=== PATIENT | female | born 1960 | race Caucasian/White ===

== ENCOUNTER → 2018-02-01 11:04 | Outpatient (CLI) | payer OTHER, SELFPAY ==
--- NOTE | 2018-02-01 | DI.MG.S_ITS ---
BILATERAL DIGITAL SCREENING MAMMOGRAM 3D/2D WITH CAD: 02/01/2018 CLINICAL: Routine screening. Comparison is made to [facility]. There are scattered fibroglandular elements in both breasts. Current study was also evaluated with a Computer Aided Detection (CAD) system. No significant masses, calcifications, or other findings are seen in either breast. There has been no significant interval change. IMPRESSION: NEGATIVE There is no mammographic evidence of malignancy. A 1 year screening mammogram is recommended. This exam was interpreted at Station ID: [id number]. NOTE: For mammograms, a report in lay terms will be sent to the patient. Approximately 15% of breast malignancies will not be visualized mammographically. In the management of a palpable breast mass, a negative mammogram must not discourage biopsy of a clinically suspicious lesion. Electronically Signed By: Shanda harvey/cat:02/03/2018 13:57:47 letter sent: Normal Exam ACR BI-RADS Category 1: Negative [id number]
== END ==
PROVIDERS: PCP Family Medicine; Visit Provider Family Medicine
DX: Z12.31 Encounter for screening mammogram for malignant neoplasm of breast (principal)
CPT/HCPCS: 77063; 77067

== ENCOUNTER 2018-02-21 23:46 | Emergency (ER) | payer OTHER, SELFPAY ==
[2018-02-21 23:56] VITALS: BP 136/79; PULSE 86; RESP 18; TEMP 36.7; O2SAT 98; BMI 31.4
[2018-02-22 00:42] LABS: Bacteria Urine None Seen; RBC Urine None Seen (0-5/HPF)
--- NOTE | 2018-02-22 00:55 | ED_ITS ---
HPI - Female Genitourinary General Chief complaint: Urogenital-Female Stated complaint: hurts to urinate, smells bad Time Seen by Provider: 02/22/18 00:49 Source: patient Mode of arrival: ambulatory Limitations: no limitations History of Present Illness HPI Narrative: Patient is a 57-year-old female who presents with painful frequent urination. She says she has gone to the bathroom 4 times in an hour it just started an hour ago. She has noticed some blood. She denies any flank pain or abdominal pain nausea vomiting or fevers. She has never had a UTI in the past. She denies any vaginal discharge MD Complaint: dysuria Related Data Home Medications Medication Instructions Recorded Confirmed Citalopram Hydrobromide 10 mg PO Q DAY #0 02/03/10 (Citalopram HBr) Zolpidem Tartrate (Ambien) 10 mg PO PRN #0 02/03/10 CA PANTOTHENATE/FOLIC ACID/VIT 1 tab PO QDAY #0 12/05/12 (MULTIVITAMIN) Previous Rx's Medication Instructions Recorded clindamycin HCl 300 mg PO TID #30 cap 06/24/16 sulfamethoxazole-trimethoprim 1 tab PO BID 4 Days #8 tab 02/22/18 [Bactrim DS] Allergies Allergy/AdvReac Type Severity Reaction Status Date / Time No Known Allergies Allergy Uncoded 02/22/18 00:00 Review of Systems Review of Systems GENERAL: Denies chills, fatigue, malaise, fever, sweats, travel HEENT: Denies sinus pain, ear pain, sore throat, difficulty swallowing, neck pain RESPIRATORY: Denies dyspnea, cough, wheezing, hemoptysis, sputum. CARDIOVASCULAR: Denies chest pain, palpitations, orthopnea, edema GASTROINTESTINAL: Denies nausea, vomiting, abdominal pain, diarrhea, constipation, melena. : See HPI MUSCULOSKELETAL: Denies weakness, joint pain, or bony pain SKIN: No rash, no erythema, no pruritus NEUROLOGIC: Denies weakness, dizziness, headache, numbness, change in speech, confusion PSYCHIATRIC: No concerning psychosocial issues. 12 point review of systems is negative except for those stated above and HPI PFSH Medical History Anxiety (Acute) Surgical History Status post surgery (02/03/10) Status post surgery (12/02/12) Social History Smoking Status: Never smoker Exam Initial Vital Signs Initial Vital Signs: Vital Signs Temperature 98.1 F 02/21/18 23:56 Pulse Rate 86 02/21/18 23:56 Respiratory Rate 18 02/21/18 23:56 Blood Pressure 136/79 02/21/18 23:56 Pulse Oximetry 98 02/21/18 23:56 GENERAL: Well-appearing, well-nourished and in no acute distress. HEENT: Head atraumatic,EOMI, pupils reactive CARDIOVASCULAR: Regular rate and rhythm without murmurs, rubs or gallops. RESPIRATORY: Breath sounds equal bilaterally, no wheezes rales or rhonchi. ABDOMEN: Soft, nontender. Normoactive bowel sounds all 4 quadrants. No guarding or rebound : No CVA tenderness EXTREMITIES: Normal range of motion, no clubbing or edema. Neurovascularly intact NEUROLOGICAL: Alert and oriented x4.Normal gait and speech. SKIN: Warm, dry, no laceration, no petechiae, no rashes or lesions. Course Orders Ordered: ED Orders 02/22/18 00:40 Urine Microscopic Stat Discontinued Medications Phenazopyridine HCl (Pyridium 100mg Prepack) 1 bottle MISC SEEINSTR ONE Stop: 02/22/18 00:50 Last Admin: 02/22/18 01:01 Dose: 1 bottle Trimethoprim/Sulfamethoxazole (Bactrim Ds Prepack) 1 bottle MISC SEEINSTR ONE Stop: 02/22/18 00:50 Last Admin: 02/22/18 01:01 Dose: 1 bottle Vital Signs - 8 hr 02/21/18 23:56 Temperature 98.1 F Pulse Rate 86 Respiratory Rate 18 Blood Pressure 136/79 Pulse Oximetry 98 MDM - Female Genitourinary Lab Data Lab Results 02/22/18 Range/Units 00:40 Urine RBC None seen (0-5/HPF) Urine WBC 0-1/hpf (0-5/HPF) Urine Bacteria None seen (None) Ur Culture Indicated? Cult not indicated Micro UA Comment Not Reportable Urine Dip Bedside Urine Glucose Negative Bedside Urine Bilirubin - Negative Bedside Urine Ketone - Negative Urine Specific [place] 1.010 Bedside Urine Occult Blood + Bedside Urine pH 6.0 Bedside Urine Protein - Negative Bedside Urine Urobilinogen - Negative Bedside Urine Nitrite - Negative Bedside Urine Leukocytes - Negative Esterase MDM Narrative Medical decision making narrative: patient's only had signs and symptoms of UTI for 1 hr. Her POC does show blood in her urine. Will treat her for UTI. Discharge Plan Departure Patient Disposition: Home Clinical Impression: Urinary tract infection Discharge Date/Time: 02/22/18 01:06 Interventions: ED Discharge Assessment Last Done: 02/22/18 01:14 Instructions: DI for Urinary Tract Infection (UTI) Activity Restrictions/Additional Instructions: *You have been diagnosed with UTI *What to do: Urine and symptoms have only been going on for an hour. However will treat for infection *Continue to take medications as directed Pyrdidium 1 tablet 3 times a day only if needed for burning Bactrim 1 tablet twice a day for 5 days *Follow up with your primary care provider in 2-3 days *Return to ER if you should have fever, increasing pain, any new, worsening or concerning symptoms Prescriptions: New sulfamethoxazole-trimethoprim [Bactrim DS] 800-160 mg tablet 1 tab PO BID 4 Days Qty: 8 RF: 0 No Action Citalopram Hydrobromide (Citalopram HBr) 10 mg PO Q DAY Qty: 0 RF: 0 Zolpidem Tartrate (Ambien) 10 mg PO PRN Qty: 0 RF: 0 CA PANTOTHENATE/FOLIC ACID/VIT (MULTIVITAMIN) 1 tab PO QDAY Qty: 0 RF: 0 clindamycin HCl 300 MG capsule 300 mg PO TID Qty: 30 RF: 0 Referrals: Bernardo Granados MD [Primary Care Provider] -
[2018-02-22] MEDS: PHENAZOPYRIDINE 100 MG PREPACK 1 BOTTLE MISC (01:01)
[2018-02-22] MEDS: TRIMETH/SULFA 160/800 PREPACK 1 BOTTLE MISC (01:01)
[2018-02-22 01:03] LABS: WBC Urine 0-1/HPF (0-5/HPF)
[2018-02-22 01:04] LABS: Culture Indicated Urine Cult Not Indicated
== END 2018-02-22 01:06 | disposition home or self-care (01) ==
PROVIDERS: Emergency Provider Emergency Medicine; PCP Family Medicine
DX: N39.0 Urinary tract infection, site not specified (principal)
CPT/HCPCS: 81003; 81015; 99282; 99283

== ENCOUNTER → 2019-01-16 14:45 | Outpatient (CLI) | payer OTHER, SELFPAY ==
--- NOTE | 2019-01-16 | DI.RAD.S_ITS ---
PROCEDURE: XR SHOULDER RT MIN 2V INDICATIONS: RT SHOULDER DECREASE RANGE OF MOTION TECHNIQUE: 3 views of the shoulder were acquired. COMPARISON: None. FINDINGS: Bones: No fractures or dislocations. No suspicious bony lesions. Visualized ribs appear intact. Severe AC joint degeneration. Glenohumeral degenerative spurring also noted. Lateral downsloping appearance of the acromion. Soft tissues: No suspicious soft tissue calcifications. IMPRESSION: Right shoulder joint degeneration as above. If the patient's pain or other symptoms persist, consider further evaluation with MRI Dictated by: Josh Choe M.D. on 01/16/2019 at 15:59 Approved by: Josh Choe M.D. on 01/16/2019 at 16:00
== END ==
PROVIDERS: PCP Family Medicine; Visit Provider Family Medicine
DX: M25.511 Pain in right shoulder (principal); M19.011 Primary osteoarthritis, right shoulder
CPT/HCPCS: 73030

== ENCOUNTER → 2019-01-29 07:58 | Outpatient (CLI) | payer OTHER, SELFPAY ==
--- NOTE | 2019-01-29 | DI.MRI.S_ITS ---
PROCEDURE: MR SHOULDER RT WO CON INDICATIONS: Impingement syndrome of right shoulder TECHNIQUE: Noncontrast oblique coronal T2 fast spin echo with fat saturation, oblique sagittal T1 spin echo and T2 fast spin echo with fat saturation, axial T1 spin echo and T2 fast spin echo with fat saturation through the shoulder. COMPARISON: None. FINDINGS: Image quality: Excellent. Rotator cuff: Partial thickness articular and bursal sided tear at the junction of the supraspinatus and infraspinatus tendons with thinned appearance. No full-thickness defect is seen. There is Supraspinatus tendinopathy. Subscapularis tendinopathy and thickening with interstitial tearing and low-grade articular surface fraying. Teres minor appears intact. No atrophy of the rotator cuff musculature Bones and bursae: No bone marrow contusions or fractures. Severe hypertrophic acromioclavicular joint degeneration. Acromion demonstrates conventional anatomy, without an os acromiale. No definite subacromial-subdeltoid bursitis. Capsule and soft tissues: Posterior labral tear with a chronic appearance. Adjacent segmental glenoid rim sclerosis. No definite posterior subluxation of the humeral head relative to the glenoid. Superior labral tear also noted, age indeterminate and could be chronic. Glenohumeral joint degeneration. Long head of the biceps tendon intact. The rotator interval appears normal, without fibrosis. Coracohumeral ligament intact. IMPRESSION: Partial thickness articular and bursal sided tear at the junction of the supraspinatus and infraspinatus tendons. No full-thickness defect. Supraspinatus tendinopathy. Subscapular tendinopathy and thickening with low-grade articular surface fraying. Superior and posterior labral tear although chronic appearance and could be degenerative. Dictated by: Josh Choe M.D. on 01/29/2019 at 10:50 Approved by: Josh Choe M.D. on 01/29/2019 at 11:07
== END ==
PROVIDERS: Family Provider Family Medicine; PCP Family Medicine; Visit Provider Nurse Practitioner Family
DX: M75.41 Impingement syndrome of right shoulder (principal); M75.111 Incomplete rotator cuff tear or rupture of right shoulder, not specified as traumatic; S43.431A Superior glenoid labrum lesion of right shoulder, initial encounter
CPT/HCPCS: 73221

== ENCOUNTER 2019-11-19 14:09 | Emergency (ER) | payer OTHER, SELFPAY ==
[2019-11-19] VITALS (7 sets, daily range): BP systolic 130–161; BP diastolic 62–77; PULSE 64–74; RESP 13–18; TEMP 36.9; O2SAT 96–98; BMI 30.4
--- NOTE | 2019-11-19 14:22 | ED_ITS ---
HPI - Chest Pain <YAHIR Jamil - Last Filed: 11/19/19 20:31> General Chief Complaint: Chest Pain Stated Complaint: chest pain Time Seen by Provider: 11/19/19 14:11 Source: patient Mode of arrival: Ambulatory Limitations: no limitations History of Present Illness HPI narrative: 59yo female with no significant history, presents to the emergency department complaining of chest pain for the past day and half. She states the pain is a burning substernal pain that radiates in a band across her chest horizontally. Pain 1st started when she woke yesterday morning and she noticed some fatigue. 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 She has an occasional cough but denies any other symptoms such as shortness of breath, fevers, rhinorrhea, dizziness, nausea, vomiting, diarrhea, abdominal pain, syncope, dizziness, or any other concerns. She denies any known exposure with COVID-19. Patient denies any history of cardiac or respiratory etiology in the past. Related Data Home Medications Medication Instructions Recorded Confirmed Citalopram Hydrobromide 10 mg PO Q DAY #0 02/03/10 (Citalopram HBr) Zolpidem Tartrate (Ambien) 10 mg PO PRN #0 02/03/10 CA PANTOTHENATE/FOLIC ACID/VIT 1 tab PO QDAY #0 12/05/12 (MULTIVITAMIN) Previous Rx's Medication Instructions Recorded clindamycin HCl 300 mg PO TID #30 cap 06/24/16 Allergies Allergy/AdvReac Type Severity Reaction Status Date / Time No Known Allergies Allergy Uncoded 02/22/18 00:00 Review of Systems <YAHIR Jamil - Last Filed: 11/19/19 20:31> Review of Systems Narrative: REVIEW OF SYSTEMS: GENERAL: Denies fever or chills. HENT: No head trauma. EYES: No vision changes. CARDIOVASCULAR: Reports burning chest pain, see HPI. RESPIRATORY: No shortness of breath or cough. GASTROINTESTINAL: No nausea, vomiting, diarrhea, or constipation. GENITOURINARY: No flank pain or dysuria. MUSCULOSKELETAL: No pain. INTEGUMENTARY: No rash. NEURO: No numbness or tingling. PSYCH: No behavior or mood changes. Patient History <YAHIR Jamil - Last Filed: 11/19/19 20:31> Medical History Anxiety (Acute) Surgical History Status post surgery (02/03/10) Status post surgery (12/02/12) Social History Smoking Status: Never smoker Smoking Status: Never smoker alcohol intake frequency: 0-2 drinks per day Substance Use Type: does not use Exam <YAHIR Jamil - Last Filed: 11/19/19 20:31> Initial Vital Signs Initial Vital Signs: Vital Signs Temperature 98.5 F 11/19/19 14:10 Pulse Rate 74 11/19/19 14:10 Respiratory Rate 18 11/19/19 14:10 Blood Pressure 161/77 H 11/19/19 14:10 Pulse Oximetry 98 11/19/19 14:10 PHYSICAL EXAMINATION: GENERAL: Well groomed, alert, and cooperative. Answers questions promptly and appropriately. Vital signs noted. HENT: Normocephalic, atraumatic. Ear canals patent. Oral mucosa is pink and moist. EYES: Conjunctiva pink, sclera white, no periorbital swelling. CHEST: Normal to inspection and without deformities. CARDIOVASCULAR: S1 and S2 sounds normal. Regular rate and rhythm, no murmurs, clicks, or bruits. RESPIRATORY: Normal respiratory rate, trachea midline, airway patent. No stridor, nasal flaring or accessory muscle use. Lungs are clear in all boss without wheeze, rhonchi, or crackles. No cough observed. GASTROINTESTINAL: Bowel sounds normoactive. Abdomen is soft and non-tender. No organomegaly. MUSCULOSKELETAL: Normal gait and coordination. Equal tone and mass bilaterally. EXTREMITIES: CMS intact. Moves all extremities. SKIN: Warm, dry, soft, appropriate color for ethnicity. No lesions, rashes, or wounds. NEURO: Alert and Oriented X 3. Good coordination. No ataxia, or sensory deficits, or cognitive issues. PSYCH: Appropriate affect and mood. <Virginia Alejandra DO - Last Filed: 11/20/19 07:35> Initial Vital Signs Initial Vital Signs: Vital Signs Temperature 98.5 F 11/19/19 14:10 Pulse Rate 74 11/19/19 14:10 Respiratory Rate 18 11/19/19 14:10 Blood Pressure 161/77 H 11/19/19 14:10 Pulse Oximetry 98 11/19/19 14:10 Scores <Soraida Villafana DIGITAL COMMUNICATIONS MANAGER - Last Filed: 11/19/19 20:31> HEART Score Heart Score history: Slightly Suspicious Heart Score EKG: Normal Heart Score Age: 45-64 years old Heart Score risk factors: No known risk factors Heart Score troponin: < or = to normal limit Heart Score Total: 1 Course <Soraida Villafana DIGITAL COMMUNICATIONS MANAGER - Last Filed: 11/19/19 20:31> Course Course Narrative: Patient reports improved chest pain with Toradol and GI cocktail administration. Orders Ordered: Discontinued Medications Al Hydrox/Mg Hydrox/Simethicone 20 ml/ Lidocaine HCl 15 ml 0 ml PO NOW ONE Stop: 11/19/19 15:48 Last Admin: 11/19/19 15:59 Dose: 20 ml Documented by: JH Sodium Chloride (Normal Saline 0.9%) 1,000 mls @ 150 mls/hr IV CONT JOSH Last Infusion: 11/19/19 16:38 Dose: 0 mls/hr Documented by: Admin: 11/19/19 15:21 Dose: 500 mls/hr Documented by: JH Ketorolac Tromethamine (Toradol) 30 mg IV NOW ONE Stop: 11/19/19 15:48 Last Admin: 11/19/19 15:59 Dose: 30 mg Documented by: JH Reevaluation(s) Reevaluation #1: Patient staffed with Dr. Alejandra discussed test, test results, and plan of care. Vital Signs Vital signs: Vital Signs - 8 hr 11/19/19 14:10 11/19/19 14:15 11/19/19 14:30 Temperature 98.5 F Pulse Rate 74 73 73 Respiratory Rate 18 14 16 Blood Pressure 161/77 H 134/64 Pulse Oximetry 98 97 11/19/19 15:00 11/19/19 15:30 11/19/19 16:00 Temperature Pulse Rate 66 66 71 Respiratory Rate 13 14 18 Blood Pressure 130/63 134/62 134/70 Pulse Oximetry 97 97 98 11/19/19 16:30 Temperature Pulse Rate 64 Respiratory Rate 16 Blood Pressure 130/72 Pulse Oximetry 96 <Virginia Alejandra DO - Last Filed: 11/20/19 07:35> Orders Ordered: Discontinued Medications Al Hydrox/Mg Hydrox/Simethicone 20 ml/ Lidocaine HCl 15 ml 0 ml PO NOW ONE Stop: 11/19/19 15:48 Last Admin: 11/19/19 15:59 Dose: 20 ml Documented by: JH Sodium Chloride (Normal Saline 0.9%) 1,000 mls @ 150 mls/hr IV CONT JOSH Last Infusion: 11/19/19 16:38 Dose: 0 mls/hr Documented by: Admin: 11/19/19 15:21 Dose: 500 mls/hr Documented by: JH Ketorolac Tromethamine (Toradol) 30 mg IV NOW ONE Stop: 11/19/19 15:48 Last Admin: 11/19/19 15:59 Dose: 30 mg Documented by: JH Vital Signs Vital signs: Vital Signs - 8 hr 11/19/19 14:10 11/19/19 14:15 11/19/19 14:30 Temperature 98.5 F Pulse Rate 74 73 73 Respiratory Rate 18 14 16 Blood Pressure 161/77 H 134/64 Pulse Oximetry 98 97 11/19/19 15:00 11/19/19 15:30 11/19/19 16:00 Temperature Pulse Rate 66 66 71 Respiratory Rate 13 14 18 Blood Pressure 130/63 134/62 134/70 Pulse Oximetry 97 97 98 11/19/19 16:30 Temperature Pulse Rate 64 Respiratory Rate 16 Blood Pressure 130/72 Pulse Oximetry 96 MDM - Chest Pain <YAHIR Jamil - Last Filed: 11/19/19 20:31> Medical Records Data Attestation: I reviewed the patient's medical records. Lab Data Attestation: I reviewed the patient's lab results. Result diagrams: 11/19/19 14:27 11/19/19 14:27 Labs: Lab Results 11/19/19 11/19/19 Range/Units 14:27 14:27 WBC 5.7 (4.5-11.0) X10^3/uL RBC 4.18 (4.0-5.2) X10^6/uL Hgb 12.4 (12.0-16.0) g/dL Hct 35.9 L (36-46) % MCV 85.8 (80-100) fL MCH 29.6 (26-34) PG MCHC 34.5 (30-36) % RDW 13.2 (11.6-14.8) % Plt Count 217 (150-400) X10^3/uL Neut % (Auto) 35.5 L (50-75) % Lymph % (Auto) 57.3 H (25-40) % [place] % (Auto) 4.8 (3-14) % Eos % (Auto) 1.6 L (2-4) % Baso % (Auto) 0.8 (0-2) % Neut # (Auto) 2000 (7244-8854) /uL Lymph # (Auto) 3300 (5565-8093) /uL [place] # (Auto) 300 (0-900) /uL Eos # (Auto) 100 (0-450) /uL Baso # (Auto) 0 (0-100) /uL Sodium 138 (137-145) mmol/L Potassium 4.2 (3.4-5.1) mmol/L Chloride 105 (98-107) mmol/L Carbon Dioxide 31 (22-32) mmol/L BUN 17 (7-17) mg/dL Creatinine 0.85 (0.52-1.04) mg/dL Estimated GFR > 60.0 (>60) mL/min BUN/Creatinine Ratio 20.0 (6-22) Glucose 148 H (70-100) mg/dL Calcium 11.0 H (8.4-10.2) mg/dL Total Bilirubin 0.5 (0.2-1.3) mg/dL AST 34 (14-36) IU/L ALT 25 (<35) IU/L Alkaline Phosphatase 89 (38-126) U/L Total Creatine Kinase 69 (30-135) U/L CK-MB (CK-2) TNP CK-MB (CK-2) Rel Index TNP Troponin I < 0.012 (0.01-0.034) ng/mL Total Protein 8.1 (6.3-8.2) g/dL Albumin 4.0 (3.5-5.0) g/dL Globulin 4.1 (1.7-4.1) g/dL Albumin/Globulin Ratio 1.0 (1.0-2.8) Lipase 180 (23-300) U/L Imaging Data Chest x-ray: Radiologist's Impression: [address] [address] XRay Report Signed Patient: Mauricio Rdz FMR#: [id number] : 2Acct:[id number] Age/Sex: 59 / FDate of Service: 11/19/19 Loc: ED Accession Number: [id number] Procedure: XR chest 1V Ordering Provider: Soraida Villafana PROCEDURE: XR CHEST 1V INDICATIONS: chest pain TECHNIQUE: One view of the chest was acquired. COMPARISON: None. FINDINGS: Surgical changes and devices: None. Lungs and pleura: Lungs are clear. No pleural effusions or pneumothorax. Mediastinum: Mediastinal contours appear normal. Heart size is normal. Bones and chest wall: No suspicious bony lesions. Overlying soft tissues appear unremarkable. IMPRESSION: No acute cardiopulmonary disease process. Dictated by: Ghislaine Sellers MD, PhD on 11/19/2019 at 15:18 Approved by: Ghislaine Sellers MD, PhD on 11/19/2019 at 15:19 ECG Data Interpretation: 1415: Sinus rhythm. Rate 71, MT interval 106, QTC 441. No ST elevation or ST depression. No T-wave abnormality. No prior EKGs for comparison. EKG also viewed by Dr. Alejandra per protocol. MDM Narrative Medical decision making narrative: 59-year-old female presenting to the emergency department for burning chest pain. Differential for symptoms include GERD for viral etiology such as COVID-19. COVID test was sent to lab, patient was informed that she will receive results in 1-2 days. Encouraged to quarantine. Less likely cardiac in nature due to characteristics of pain, pain is not worse with activity or exertion, negative troponin, heart score of 1, low risk factors, and lack of other concerning symptoms such as associated shortness of breath. Chest x-ray without concern for pulmonary cardiac etiology as well. Improved symptoms after administration of medications. Patient was encouraged to take Pepcid as needed. She was encouraged to rest and drink plenty fluids. Return precautions given for new or worsening symptoms. Discussed follow-up symptoms with primary care provider in the next week. Patient agreed to plan of care verbalized understanding. <Virginia Alejandra, - Last Filed: 11/20/19 07:35> Lab Data Labs: Lab Results 11/19/19 11/19/19 Range/Units 14:27 14:27 WBC 5.7 (4.5-11.0) X10^3/uL RBC 4.18 (4.0-5.2) X10^6/uL Hgb 12.4 (12.0-16.0) g/dL Hct 35.9 L (36-46) % MCV 85.8 (80-100) fL MCH 29.6 (26-34) PG MCHC 34.5 (30-36) % RDW 13.2 (11.6-14.8) % Plt Count 217 (150-400) X10^3/uL Neut % (Auto) 35.5 L (50-75) % Lymph % (Auto) 57.3 H (25-40) % [place] % (Auto) 4.8 (3-14) % Eos % (Auto) 1.6 L (2-4) % Baso % (Auto) 0.8 (0-2) % Neut # (Auto) 2000 (6444-6970) /uL Lymph # (Auto) 3300 (6132-1724) /uL [place] # (Auto) 300 (0-900) /uL Eos # (Auto) 100 (0-450) /uL Baso # (Auto) 0 (0-100) /uL Sodium 138 (137-145) mmol/L Potassium 4.2 (3.4-5.1) mmol/L Chloride 105 (98-107) mmol/L Carbon Dioxide 31 (22-32) mmol/L BUN 17 (7-17) mg/dL Creatinine 0.85 (0.52-1.04) mg/dL Estimated GFR > 60.0 (>60) mL/min BUN/Creatinine Ratio 20.0 (6-22) Glucose 148 H (70-100) mg/dL Calcium 11.0 H (8.4-10.2) mg/dL Total Bilirubin 0.5 (0.2-1.3) mg/dL AST 34 (14-36) IU/L ALT 25 (<35) IU/L Alkaline Phosphatase 89 (38-126) U/L Total Creatine Kinase 69 (30-135) U/L CK-MB (CK-2) TNP CK-MB (CK-2) Rel Index TNP Troponin I < 0.012 (0.01-0.034) ng/mL Total Protein 8.1 (6.3-8.2) g/dL Albumin 4.0 (3.5-5.0) g/dL Globulin 4.1 (1.7-4.1) g/dL Albumin/Globulin Ratio 1.0 (1.0-2.8) Lipase 180 (23-300) U/L ECG Data Attestation: I personally reviewed and interpreted this ECG as follows: Prior ECG tracings: not available for review Interpretation: Normal sinus rhythm rate 71 p.r. interval 106 QRS 86, QTC 441 no short p.r. interval no p.r. depression, slight ST depression in inferior leads but less than 0.5 mm Discharge Plan Departure Patient Disposition: Home Clinical Impression: Atypical chest pain Discharge Date/Time: 11/19/19 16:39 Instructions: DI for Atypical Chest Pain Activity Restrictions/Additional Instructions: Thank you for entrusting me with your care today. As discussed, your chest x- ray, laboratory work, and EKG are non-remarkable. 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 This test may take 2-5 days for results to return, we will call you with these results. Please remain in quarantine with self isolation at home for 3 days after your s ymptoms have completely resolved. Drink lots of fluids, take Tylenol for fever, get extra rest, clean all surfaces, cover your cough, wash your hands frequently, and avoid sharing any personal items. If you need to seek medical care, please call the clinic or the emergency department before your arrival. It is possible that acid reflux may be contributing to this as well, I suggest taking Pepcid daily for the next week to see if this relieves symptoms. Please return to the emergency department for any new or worsening symptoms such as worsening chest pain, syncope, shortness of breath, dizziness, or any other concerns. Make an appointment with your provider in the next 1-2 weeks for further evaluation and testing if indicated. Prescriptions: No Action Citalopram Hydrobromide (Citalopram HBr) 10 mg PO Q DAY Qty: 0 RF: 0 Zolpidem Tartrate (Ambien) 10 mg PO PRN Qty: 0 RF: 0 CA PANTOTHENATE/FOLIC ACID/VIT (MULTIVITAMIN) 1 tab PO QDAY Qty: 0 RF: 0 clindamycin HCl 300 MG capsule 300 mg PO TID Qty: 30 RF: 0 Referrals: Bernardo Granados MD [Primary Care Provider] - <Virginia Alejandra DO - Last Filed: 11/20/19 07:35> Cosign ED Attending Cosignature Attestation: I was immediately available in the depar tment for consultation. Documentation has been reviewed. I agree with assessment and plan.
--- NOTE | 2019-11-19 14:48 | DI.RAD.S_ITS ---
PROCEDURE: XR CHEST 1V INDICATIONS: chest pain TECHNIQUE: One view of the chest was acquired. COMPARISON: None. FINDINGS: Surgical changes and devices: None. Lungs and pleura: Lungs are clear. No pleural effusions or pneumothorax. Mediastinum: Mediastinal contours appear normal. Heart size is normal. Bones and chest wall: No suspicious bony lesions. Overlying soft tissues appear unremarkable. IMPRESSION: No acute cardiopulmonary disease process. Dictated by: Ghislaine Sellers MD, PhD on 11/19/2019 at 15:18 Approved by: Ghislaine Sellers MD, PhD on 11/19/2019 at 15:19
[2019-11-19 15:03] LABS: Add Manual Diff / Slide Review NO; Basophils Absolute Auto 0 /uL (0-100); Basophils Percent Auto 0.8 % (0-2); Eosinophils Absolute Auto 100 /uL (0-450); Eosinophils Percent Auto 1.6 % (2-4); Hematocrit 35.9 % (36-46); Hemoglobin 12.4 g/dL (12.0-16.0); Lymphocytes Absolute Auto 3300 /uL (1100-4500); Lymphocytes Percent Auto 57.3 % (25-40); Mean Corpuscular HGB Conc 34.5 % (30-36); Mean Corpuscular Hemoglobin 29.6 PG (26-34); Mean Corpuscular Volume 85.8 fL (80-100); Monocytes Absolute Auto 300 /uL (0-900); Monocytes Percent Auto 4.8 % (3-14); Neutrophils Absolute Auto 2000 /uL (1500-7000); Neutrophils Percent Auto 35.5 % (50-75); Platelet Count 217 X10^3/uL (150-400); Red Blood Cell Count 4.18 X10^6/uL (4.0-5.2); Red Cell Distribution Width 13.2 % (11.6-14.8); White Blood Cell Count 5.7 X10^3/uL (4.5-11.0)
[2019-11-19 15:08] LABS: Alanine Aminotransferase 25 IU/L (<35); Alkaline Phosphatase 89 U/L (38-126); Aspartate Aminotransferase 34 IU/L (14-36); Bilirubin Total 0.5 mg/dL (0.2-1.3); Blood Urea Nitrogen 17 mg/dL (7-17); Carbon Dioxide 31 mmol/L (22-32); Chloride 105 mmol/L (98-107); Creatine Kinase 69 U/L (30-135); Estimated Glomerular Filt Rate > 60.0 mL/min (>60); Globulin 4.1 g/dL (1.7-4.1); Glucose 148 mg/dL (70-100); HEMOLYSIS 30 (0-50); Lipase 180 U/L (23-300); Potassium 4.2 mmol/L (3.4-5.1); Sodium 138 mmol/L (137-145); Total Protein 8.1 g/dL (6.3-8.2)
[2019-11-19 15:20] LABS: Troponin I < 0.012 ng/mL (0.01-0.034)
[2019-11-19] MEDS: SODIUM CHLORIDE 0.9% 1,000 ML 500 ML IV (15:21)
[2019-11-19] MEDS: KETOROLAC 60 MG/2 ML VIAL 30 MG IV (15:59)
[2019-11-19] MEDS: MAG HYDROX/ALUMINUM/SIMETH SUS 20 ML, LIDOCAINE VISCOUS 2% 15 ML PO (15:59)
[2019-11-21 15:36] LABS: COVID19 Sendout Not Detected (Not Detected)
== END 2019-11-19 16:39 | disposition home or self-care (01) ==
PROVIDERS: Emergency Provider Nurse Practitioner; Family Provider Family Medicine; PCP Family Medicine
DX: R07.89 Other chest pain (principal); Z03.818 Encounter for observation for suspected exposure to other biological agents ruled out
CPT/HCPCS: 71045; 80053; 82550; 83690; 84484; 85025; 87635; 93005; 96361; 96374; 99284; J1885

== ENCOUNTER → 2020-01-16 07:52 | Outpatient (CLI) | payer OTHER, SELFPAY ==
--- NOTE | 2020-01-16 | DI.MG.S_ITS ---
BILATERAL DIGITAL SCREENING MAMMOGRAM 3D/2D WITH CAD: 01/16/2020 CLINICAL: Routine screening. Comparison is made to exams dated: 02/01/2018 mammogram and 06/27/2009 mammogram - [facility]. There are scattered fibroglandular elements in both breasts. Current study was also evaluated with a Computer Aided Detection (CAD) system. No significant masses, calcifications, or other findings are seen in either breast. There has been no significant interval change. IMPRESSION: NEGATIVE There is no mammographic evidence of malignancy. A 1 year screening mammogram is recommended. This exam was interpreted at Station ID: [id number]. NOTE: For mammograms, a report in lay terms will be sent to the patient. Approximately 15% of breast malignancies will not be visualized mammographically. In the management of a palpable breast mass, a negative mammogram must not discourage biopsy of a clinically suspicious lesion. Electronically Signed By: Addi howard/cat:01/18/2020 07:28:25 letter sent: Normal Exam ACR BI-RADS Category 1: Negative [id number]
== END ==
PROVIDERS: Family Provider Family Medicine; PCP Family Medicine; Referring Provider Family Medicine; Visit Provider Family Medicine
DX: Z12.31 Encounter for screening mammogram for malignant neoplasm of breast (principal)
CPT/HCPCS: 77063; 77067

== ENCOUNTER → 2020-06-22 16:14 | Outpatient (CLI) | payer OTHER, SELFPAY ==
[2020-06-22] MEDS: COVID-19 VACC, Ad26(JANSSEN)/PF 0.5 ML IM (16:28)
== END ==
PROVIDERS: Visit Provider Internal Medicine
DX: Z23 Encounter for immunization (principal)
CPT/HCPCS: 0031A; 91303

== ENCOUNTER 2020-09-16 14:56 | Emergency (ER) | payer OTHER, SELFPAY ==
[2020-09-16 15:03] VITALS: BP 177/82; PULSE 72; RESP 18; TEMP 36.8; O2SAT 97
--- NOTE | 2020-09-16 15:16 | ED.GENADULT ---
HPI - General Adult General Chief complaint: Extremity Injury, Upper Stated complaint: FELL RIGHT ARM LEG INJURY Time Seen by Provider: 09/16/20 15:11 Source: patient Mode of arrival: Wheelchair Limitations: no limitations History of Present Illness HPI narrative: 59-year-old otherwise healthy woman was walking down the street, turn to talk to somebody and as she turned back around her right arm hit a cement post then she stumbled and fell landing on both needs and abrading her left thenar eminence. There is no loss of consciousness. She was able to get up again. Her right arm where it hit the post is very tender to the touch in the distal forearm. She has a large and continuing to expand hematoma on the ventral surface of the forearm. She is not on blood thinners Related Data Home Medications Medication Instructions Recorded Confirmed Citalopram Hydrobromide 10 mg PO Q DAY #0 02/03/10 (Citalopram HBr) Zolpidem Tartrate (Ambien) 10 mg PO PRN #0 02/03/10 CA PANTOTHENATE/FOLIC ACID/VIT 1 tab PO QDAY #0 12/05/12 (MULTIVITAMIN) Previous Rx's Medication Instructions Recorded clindamycin HCl 300 mg PO TID #30 cap 06/24/16 hydrocodone-acetaminophen 1 tab PO Q6H PRN #14 tab 09/16/20 Allergies Allergy/AdvReac Type Severity Reaction Status Date / Time No Known Drug Allergies Allergy Verified 09/16/20 15:03 Review of Systems Review of Systems Narrative: Pertinent positive and negative findings as per HPI Remainder of review of systems is otherwise unremarkable for Constitutional: Fevers, chills, weakness ENT: No sore throat, neck pain, ear pain CV: Chest pain, palpitations, Respiratory: Cough, wheeze, dyspnea GI: Nausea, vomiting, diarrhea, : Dysuria, hematuria, Patient History Medical History Anxiety Surgical History Status post surgery (02/03/10) Status post surgery (12/02/12) Social History Smoking Status: Never smoker Smoking Status: Never smoker alcohol intake frequency: other Substance Use Type: does not use Exam Narrative Exam Narrative: General: Alert appropriate in no acute distress Respiratory: Able to speak in full sentences, no obvious respiratory distress Skin: No obvious rashes, warm and dry Neurologic: Grossly intact no obvious asymmetries or abnormalities Psych: appropriate insight and affect, cooperative Extremities: Small abrasion to palmar surface of the left hand and both knees. She has a 5 x 8 cm developing hematoma over the right forearm with a mild abrasion only over that. She is completely neurovascularly intact distally. Initial Vital Signs Initial Vital Signs: Vital Signs Temperature 98.3 F 09/16/20 15:03 Pulse Rate 72 09/16/20 15:03 Respiratory Rate 18 09/16/20 15:03 Blood Pressure 177/82 H 09/16/20 15:03 Pulse Oximetry 97 09/16/20 15:03 Procedures Orthopedic Splinting/Casting Right forearm: Side: right Upper Extremity Injury Location: forearm Upper Extremity Immobilizer: Chris wrap Post splinting neuro exam: intact Post splinting vascular exam: intact Placed by: Provider Course Orders Ordered: ED Orders 09/16/20 15:17 XR wrist RT min 3V Stat Discontinued Medications Acetaminophen (Acetaminophen 325 Mg Tablet) 325 mg PO NOW ONE Stop: 09/16/20 15:31 Last Admin: 09/16/20 15:43 Dose: 325 mg Documented by: Bacitracin (Bacitracin Oint 0.9 Gm Pckt) 5 applic TOP NOW ONE Stop: 09/16/20 15:31 Last Admin: 09/16/20 15:43 Dose: 5 applic Documented by: Ibuprofen (Ibuprofen 400 Mg Tablet) 400 mg PO NOW ONE Stop: 09/16/20 15:31 Last Admin: 09/16/20 15:42 Dose: 400 mg Documented by: Oxycodone HCl (Oxycodone Ir 5 Mg Tablet) 5 mg PO NOW ONE Stop: 09/16/20 16:14 Vital Signs Vital signs: Vital Signs - 8 hr 09/16/20 15:03 Temperature 98.3 F Pulse Rate 72 Respiratory Rate 18 Blood Pressure 177/82 H Pulse Oximetry 97 Medical Decision Making Imaging Data X-ray wrist: Radiologist's Impression: FINDINGS: Bones: No fractures or dislocations. No suspicious bony lesions. Scaphoid view: Scaphoid is intact. Soft tissues: No suspicious soft tissue calcifications. Dorsal distal forearm soft tissue swelling. IMPRESSION: No fracture. No osseous lesion. If symptoms and/or clinical suspicion for pathology persists, further assessment with repeat radiographs (7-10 days) or advanced imaging (e.g. CT, MRI or bone scan) should be considered. Dictated by: Ghislaine Sellers MD, PhD on 09/16/2020 at 15:45 MDM Narrative Medical decision making narrative: 59-year-old woman with minor abrasions to the left hand and both knees. The a hematoma on her right forearm is quite large and quite tender. There is no underlying bony injury. An Chris wrap was applied to help control the bleeding and for compression support and pain control as well. At this point she does not have compartment syndrome however that much swelling in her forearm could conceivably put her at risk in we did go over signs and symptoms of developing compartment syndrome. At this point she is safe for home discharge Discharge Plan Departure Patient Disposition: Home Clinical Impression: Hematoma and contusion, Abrasion Instructions: Acute Compartment Syndrome, DI for Hematoma (Bruise) Activity Restrictions/Additional Instructions: Thank you for coming in today You did not break your wrist that you do have an impressive hematoma in your forearm. This is going to hurt more tomorrow. I have placed an Chris wrap fairly tightly to try and stop any further bleeding right now. I suspect that you either broke a tiny little arteriole or a medium-sized vein. Please make sure that it sometime in the next couple of hours he really wrap that arm so that the dressing is in quite so tight. Using 400 mg of ibuprofen (2 [id number] pills) and 1 Tylenol every 6 hours can be very helpful in controlling pain. You can also 400 mg of ibuprofen and 1 Vicodin for severe pain I have given you instructions for compartment syndrome. I do not think that you have this currently however this type of injury does put you at risk. If you get to the point where your pain is well beyond what you would expect to be and cannot be further controlled with medications, please return to the ER I hope you heal quickly Prescriptions: New hydrocodone-acetaminophen 5-325 mg tablet 1 tab PO Q6H PRN (Reason: pain) Qty: 14 RF: 0 No Action Citalopram Hydrobromide (Citalopram HBr) 10 mg PO Q DAY Qty: 0 RF: 0 Zolpidem Tartrate (Ambien) 10 mg PO PRN Qty: 0 RF: 0 CA PANTOTHENATE/FOLIC ACID/VIT (MULTIVITAMIN) 1 tab PO QDAY Qty: 0 RF: 0 clindamycin HCl 300 MG capsule 300 mg PO TID Qty: 30 RF: 0 Referrals: Huyen Harden MD [Primary Care Provider] -
--- NOTE | 2020-09-16 15:17 | DI.RAD.S_ITS ---
PROCEDURE: XR WRIST RT MIN 3V INDICATIONS: injury TECHNIQUE: 4 views of the wrist were acquired. COMPARISON: None. FINDINGS: Bones: No fractures or dislocations. No suspicious bony lesions. Scaphoid view: Scaphoid is intact. Soft tissues: No suspicious soft tissue calcifications. Dorsal distal forearm soft tissue swelling. IMPRESSION: No fracture. No osseous lesion. If symptoms and/or clinical suspicion for pathology persists, further assessment with repeat radiographs (7-10 days) or advanced imaging (e.g. CT, MRI or bone scan) should be considered. Dictated by: Ghislaine Sellers MD, PhD on 09/16/2020 at 15:45 Approved by: Ghislaine Sellers MD, PhD on 09/16/2020 at 15:49
[2020-09-16] MEDS: IBUPROFEN 400 MG TABLET PO (15:42)
[2020-09-16] MEDS: BACITRACIN OINT 0.9 GM PCKT 5 APPLIC TOP (15:43)
[2020-09-16] MEDS: ACETAMINOPHEN 325 MG TABLET PO (15:43)
[2020-09-16] MEDS: OXYCODONE IR 5 MG TABLET PO (16:29)
[2020-09-16 16:30] VITALS: BP 148/76; PULSE 77; RESP 18; O2SAT 99
== END 2020-09-16 16:31 | disposition home or self-care (01) ==
PROVIDERS: Emergency Provider Emergency Medicine; PCP Student in an Organized Health Care Education/Training Program
DX: S50.11XA Contusion of right forearm, initial encounter (principal); S60.512A Abrasion of left hand, initial encounter; S80.212A Abrasion, left knee, initial encounter; S80.211A Abrasion, right knee, initial encounter; W22.01XA Walked into wall, initial encounter
CPT/HCPCS: 73110; 99283

== ENCOUNTER → 2021-09-03 10:45 | Outpatient (CLI) | payer OTHER, SELFPAY ==
[2021-09-03 12:52] LABS: Influenza A - CEPHEID Flu A NEGATIVE (NEGATIVE); Influenza B - CEPHEID Flu B NEGATIVE (NEGATIVE)
[2021-09-03 12:57] LABS: COVID-19 CEPHEID PCR (VTM/NP) Negative (Negative)
== END ==
PROVIDERS: PCP Student in an Organized Health Care Education/Training Program; Visit Provider Physician Assistant
DX: R05.9 Cough, unspecified (principal); J02.9 Acute pharyngitis, unspecified
CPT/HCPCS: 0240U; 87070

== ENCOUNTER 2021-09-16 10:44 | Emergency (ER) | payer OTHER, SELFPAY ==
--- NOTE | 2021-09-16 10:57 | DI.RAD.S_ITS ---
PROCEDURE: XR CHEST 2V INDICATIONS: sob TECHNIQUE: 2 views of the chest were acquired. COMPARISON: [facility], , XR CHEST 1V, 11/19/2019, 15:07. FINDINGS: Surgical changes and devices: None. Lungs and pleura: Lungs are clear. No pleural effusions or pneumothorax. Mediastinum: Mediastinal contours are normal. Heart size is normal. Bones and chest wall: Degenerative changes of the shoulders and spine without acute osseous abnormality. No suspicious bony abnormalities. Soft tissues appear unremarkable. IMPRESSION: No evidence of an acute cardiopulmonary abnormality. Dictated by: Live Moreira D.O. on 09/16/2021 at 10:29 Approved by: Live Moreira D.O. on 09/16/2021 at 10:30
[2021-09-16 10:58] VITALS: BP 147/101; PULSE 99; RESP 20; TEMP 35.7; O2SAT 96; BMI 29.5
--- NOTE | 2021-09-16 11:17 | ED.GENADULT ---
HPI - General Adult General Chief complaint: Shortness of Breath/Dyspnea Stated complaint: Trouble breathing x 2 weeks Time Seen by Provider: 09/16/21 10:59 Source: patient and family Mode of arrival: Family Vehicle Limitations: no limitations History of Present Illness HPI narrative: Patient is a 60-year-old female. No other underlying lung issues he is here for evaluation of 2 weeks of coughing and problems breathing. She states that she now has shortness of breath when she gets up and moves around. No fevers. No sinus congestion. Does have a sore throat. No chest pain. She was diagnosed with COVID in April. Her symptoms completely resolved. Two weeks ago started to have symptoms again. She was seen in the walk-in clinic. Had a negative COVID test. Was seen by her primary doctor. Was told that she had ?long COVID ?is not currently on any medications. She had a negative COVID test at her primary doctor. No abdominal pain. Fevers. Related Data Home Medications Medication Instructions Recorded Confirmed Citalopram Hydrobromide 10 mg PO Q DAY #0 02/03/10 09/03/21 (Citalopram HBr) Zolpidem Tartrate (Ambien) 10 mg PO PRN #0 02/03/10 09/03/21 CA PANTOTHENATE/FOLIC ACID/VIT 1 tab PO QDAY #0 12/05/12 09/03/21 (MULTIVITAMIN) Previous Rx's Medication Instructions Recorded clindamycin HCl 300 mg capsule 300 mg PO TID #30 cap 06/24/16 hydrocodone 5 mg-acetaminophen 325 1 tab PO Q6H PRN #14 tab 09/16/20 mg tablet albuterol sulfate 90 mcg/actuation 2 puff INHALATION Q4-6H PRN #8.5 g 09/16/21 aerosol inhaler Allergies Allergy/AdvReac Type Severity Reaction Status Date / Time No Known Drug Allergies Allergy Verified 09/16/20 15:03 Review of Systems Constitutional Constitutional: Reports system reviewed and no additional complaints, except as documented ENT Ears, Nose, Mouth, and Throat: Reports system reviewed and no additional complaints, except as documented Cardiovascular Cardiovascular: Reports system reviewed and no additional complaints, except as documented Respiratory Respiratory: Reports system reviewed and no additional complaints, except as documented Gastrointestinal Gastrointestinal: Reports system reviewed and no additional complaints, except as documented Integumentary/Breasts Skin/Breast: Reports system reviewed and no additional complaints, except as documented Hematologic/Lymphatic On Anticoagulants: No Patient History Medical History (Updated 09/16/21 @ 13:18 by Bernardo King DO) Anxiety Surgical History Status post surgery (02/03/10) Status post surgery (12/02/12) Social History Smoking Status: Never smoker Smoking Status: Never smoker alcohol intake frequency: other Substance Use Type: does not use Exam Initial Vital Signs Initial Vital Signs: Vital Signs Temperature 96.2 F L 09/16/21 10:58 Pulse Rate 99 H 09/16/21 10:58 Respiratory Rate 20 09/16/21 10:58 Blood Pressure 147/101 H 09/16/21 10:58 Pulse Oximetry 96 09/16/21 10:58 Const General: cooperative, healthy appearing and comfortable HENMT Head: normal to inspection and normocephalic Mouth: oral mucosae normal and moist mucous membranes Throat: posterior oropharynx normal Resp Effort & Inspection: normal respiratory effort Auscultation: clear to auscultation bilaterally Cardio Rate: regular rate Rhythm: regular rhythm GI Inspection: normal to inspection Neuro General: patient alert, patient awake and moves all extremities Extrem General: normal to inspection and capillary refill normal Psych Appearance: grossly normal and well kempt Course Orders Ordered: ED Orders 09/16/21 10:57 Chest [XR chest 2V] Stat 09/16/21 11:00 COVID19 -Nasal RAPID/Pre-Proc Stat 09/16/21 11:57 Respiratory Panel (Film Array) Stat Vital Signs Vital signs: Vital Signs - 8 hr 09/16/21 10:58 09/16/21 13:25 Temperature 96.2 F L Pulse Rate 99 H 98 H Respiratory Rate 20 19 Blood Pressure 147/101 H 159/80 H Pulse Oximetry 96 98 Medical Decision Making Lab Data Labs: Lab Results 09/16/21 09/16/21 Range/Units 11:00 11:57 Chlamy pneumoniae PCR Not detected (Not Detect) Adenovirus (PCR) Not detected (Not Detect) B. pertussis DNA (PCR) Not detected (Not Detecte) B.parapertussis DNA PCR Not detected (Not Detecte) Coronavirus OC43 (PCR) Not detected (Not Detect) Coronavirus HKU1 (PCR) Not detected (Not Detect) Coronavirus 229E (PCR) Not detected (Not Detect) SARS-CoV-2 (PCR) Negative Not detected (Negative) Coronavirus NL63 (PCR) Not detected (Not Detect) Human Metapneumovir PCR Not detected (Not Detect) Influenza Type A (PCR) Not detected (Not Detect) Influenza Type B (PCR) Not detected (Not Detect) M. pneumoniae (PCR) Not detected (Not Detect) Parainfluenza 1 (PCR) Not detected (Not Detect) Parainfluenza 2 (PCR) Not detected (Not Detect) Parainfluenza 3 (PCR) Detected H (Not Detect) Parainfluenza 4 (PCR) Not detected (Not Detect) RSV (PCR) Not detected (Not Detect) Entero/Rhino (PCR) Not detected (Not Detect) Imaging Data Chest x-ray: Radiologist's Impression: [address] [id number] XRay Report Signed Patient: Mauricio Rdz MR#: [id number] : 1960 Acct:[id number] Age/Sex: 60 / F Date of Service: 09/16/21 Loc: Accession Number: [id number] ?? Procedure: XR chest 2V Ordering Provider: Bernardo King D.O. PROCEDURE:? XR CHEST 2V ? INDICATIONS:? sob ? TECHNIQUE:? 2 views of the chest were acquired.? ? COMPARISON:? [facility], , XR CHEST 1V, 11/19/2019, 15:07. ? FINDINGS:? ? Surgical changes and devices:? None.? ? Lungs and pleura:? Lungs are clear.? No pleural effusions or pneumothorax.? ? Mediastinum:? Mediastinal contours are normal.? Heart size is normal.? ? Bones and chest wall:? Degenerative changes of the shoulders and spine without acute osseous abnormality.? No suspicious bony abnormalities.? Soft tissues appear unremarkable.? ? IMPRESSION:? ? No evidence of an acute cardiopulmonary abnormality. ? ? Dictated by: Live Moreira D.O. on 09/16/2021 at 10:29 ? ? Approved by: Live Moreira D.O. on 09/16/2021 at 10:30?? MDM Narrative Medical decision making narrative: Chest x-ray shows no signs of pneumonia. She has a clear lung exam. Is not hypoxic. Not tachypneic. Respiratory panel positive for parainfluenza virus. No indication for antibiotics. I did discuss this with her. Was sent home with an albuterol inhaler although not 100% convinced that this is going to improve her symptoms. We also discussed other things that she could try to include guaifenesin or Mucinex. She was given return precautions. She expressed understanding and agreement. Discharge Plan Departure Patient Disposition: Home Clinical Impression: Parainfluenza virus bronchitis Activity Restrictions/Additional Instructions: If you develop any fevers you can take Tylenol or ibuprofen. You could also consider taking [id number] chest decongestant such as guaifenesin or Mucinex. You can use the inhaler as needed. Contact your primary doctor for follow-up. Return to the emergency department for any new or worsening symptoms Prescriptions: New albuterol sulfate 90 mcg/actuation HFA aerosol inhaler 2 puff inhalation Q4-6H PRN (Reason: shortness of breath or wheezing) Qty: 8.5 0RF No Action Citalopram Hydrobromide (Citalopram HBr) 10 mg PO Q DAY Qty: 0 0RF Zolpidem Tartrate (Ambien) 10 mg PO PRN Qty: 0 0RF CA PANTOTHENATE/FOLIC ACID/VIT (MULTIVITAMIN) 1 tab PO QDAY Qty: 0 0RF clindamycin HCl 300 MG capsule 300 mg PO TID Qty: 30 0RF hydrocodone-acetaminophen 5-325 mg tablet 1 tab PO Q6H PRN (Reason: pain) Qty: 14 0RF Referrals: Huyen Harden MD [Primary Care Provider] - Visit Report Forms: Patient Portal/API
[2021-09-16 11:24] LABS: COVID19 -Nasal RAPID Negative (Negative)
[2021-09-16 12:50] LABS: Adenovirus Not Detected (Not Detect); B. parapertussis Not Detected (Not Detecte); Bordetella pertussis Not Detected (Not Detecte); Chlamydophila pneumoniae Not Detected (Not Detect); Coronavirus 229E Not Detected (Not Detect); Coronavirus HKU1 Not Detected (Not Detect); Coronavirus NL 63 Not Detected (Not Detect); Coronavirus OC43 Not Detected (Not Detect); Human Metapneumovirus Not Detected (Not Detect); Human Rhinovirus/Enterovirus Not Detected (Not Detect); Influenza A Not Detected (Not Detect); Influenza B Not Detected (Not Detect); Mycoplasma pneumoniae Not Detected (Not Detect); Parainfluenza Virus 1 Not Detected (Not Detect); Parainfluenza Virus 2 Not Detected (Not Detect); Parainfluenza Virus 3 Detected (Not Detect); Parainfluenza Virus 4 Not Detected (Not Detect); Respiratory Syncytial Virus Not Detected (Not Detect); SARS- CoV-2 Not Detected (Not Detecte)
[2021-09-16 13:25] VITALS: BP 159/80; PULSE 98; RESP 19; O2SAT 98
== END 2021-09-16 13:26 | disposition home or self-care (01) ==
PROVIDERS: Emergency Provider Emergency Medicine; PCP Student in an Organized Health Care Education/Training Program
DX: J10.1 Influenza due to other identified influenza virus with other respiratory manifestations (principal); R06.02 Shortness of breath; Z20.822 Contact with and (suspected) exposure to COVID-19
CPT/HCPCS: 71046; 87633; 87635; 99281; 99283; C9803

== ENCOUNTER 2021-09-28 15:14 | Inpatient (IN) | payer OTHER, SELFPAY ==
[2021-09-28] VITALS (21 sets, daily range): BP systolic 147–195; BP diastolic 85–100; PULSE 77–94; RESP 8–27; TEMP 36.6–36.7; O2SAT 91–100; BMI 28.8
--- NOTE | 2021-09-28 15:35 | DI.RAD.S_ITS ---
PROCEDURE: XR CHEST 1V INDICATIONS: weakness TECHNIQUE: One view of the chest was acquired. COMPARISON: [facility], CR, XR CHEST 1V, 11/19/2019, 15:07. [facility], CR, XR CHEST 2V, 09/16/2021, 10:55. FINDINGS: Surgical changes and devices: None. Lungs and pleura: On this semiupright portable chest examination, no large pneumothorax or large pleural effusions are seen. No focal infiltrates are seen. Mild generalized interstitial prominence can be seen. Low lung volumes are noted. This causes a crowded appearance to the lung markings and limits evaluation. Mediastinum: Mediastinal contours appear normal. Heart size is normal. Bones and chest wall: No suspicious bony lesions. Age-appropriate bony degenerative changes are seen. Overlying soft tissues appear unremarkable. IMPRESSION: Limited portable chest study demonstrating mild interstitial prominence. Differential diagnosis includes a mild degree of pulmonary edema as well as artifact from the low lung volumes. Please also consider atypical infiltrate, including COVID pneumonia. If clinically appropriate, a short-term followup chest series (with PA and lateral views) performed in deep inspiration is suggested for further evaluation. Dictated by: Navneet Herrera M.D. on 09/28/2021 at 15:06 Approved by: Navneet Herrera M.D. on 09/28/2021 at 15:07
[2021-09-28] MEDS: SODIUM CHLORIDE 0.9% 1,000 ML 1000 ML IV ×2 (15:39→19:05)
--- NOTE | 2021-09-28 15:40 | PC.NURSE ---
Pt blood very slow to draw from PIV when pt arrived. Blood not drawing up into glucometer.
--- NOTE | 2021-09-28 16:49 | ED.WEAKNESS ---
HPI - Weakness <Clive Campo DO - Last Filed: 09/28/21 21:03> General Chief complaint: Weakness Stated complaint: Weakness Time Seen by Provider: 09/28/21 15:18 Source: patient and EMS Mode of arrival: EMS History of Present Illness HPI Narrative: 60F nonsmoker with history of recent diagnosis of parainfluenza and bronchitis presents by EMS for evaluation of generalized weakness and shortness of breath and near syncope just prior to her arrival. She states that she had had nothing more than a coffee this morning for breakfast and had not had any water or food over the course of the day and was more active than normal including [place] on the beach where she had her symptoms. She denies any chest pain but was short of breath. She denies any fever or chills and feels significant improvement after being transported here by EMS. She denies abdominal pain, diarrhea or change in bowel habits. She has had no dysuria, frequency or urgency. She denies new medications or dietary change Related Data Home Medications Medication Instructions Recorded Confirmed Citalopram Hydrobromide 30 mg PO BEDTIME depression ##0 02/03/10 09/29/21 (Citalopram HBr) Zolpidem Tartrate (Ambien) 10 mg PO PRN PRN Insomnia ##0 02/03/10 09/29/21 CA PANTOTHENATE/FOLIC ACID/VIT 1 tab PO QDAY ##0 12/05/12 09/24/21 (MULTIVITAMIN) Previous Rx's Medication Instructions Recorded hydrocodone 5 mg-acetaminophen 325 1 tab PO Q6H PRN pain #14 tabs 09/16/20 mg tablet Allergies Allergy/AdvReac Type Severity Reaction Status Date / Time No Known Drug Allergies Allergy Verified 09/24/21 14:04 Review of Systems <Clive Campo DO - Last Filed: 09/28/21 21:03> Review of Systems Narrative: GENERAL: See HPI HEENT: Denies sinus pain, ear pain, sore throat, difficulty swallowing, dizziness. RESPIRATORY: Denies dyspnea, cough, wheezing, hemoptysis, sputum. CARDIOVASCULAR: See HPI GASTROINTESTINAL: See HPI : Denies dysuria, frequency, incontinence, hematuria, urinary retention. MUSCULOSKELETAL: denies weakness, joint pain, or bony pain SKIN: Denies rash, skin lesions, or other NEUROLOGIC: Denies weakness, headache, numbness, change in speech, confusion, seizures, incoordination. PSYCHIATRIC: No concerning psychosocial issues. 12 point review of systems is negative except for those stated above Patient History <Clive Campo DO - Last Filed: 09/28/21 21:03> Medical History Anxiety Surgical History Status post surgery (02/03/10) Status post surgery (12/02/12) Social History household members: spouse Smoking Status: Never smoker alcohol intake: current Smoking Status: Never smoker alcohol intake frequency: other Substance Use Type: does not use Exam <Clive Campo DO - Last Filed: 09/28/21 21:03> Narrative Exam Narrative: GENERAL: [60] year old patient appears stated age. Well-developed patient, in mild distress. HEAD: Atraumatic. Normocephalic. EYES: Pupils equal round and reactive. Extraocular motions intact. No scleral icterus. No injection or drainage. ENT: Nose without bleeding, purulent drainage. Throat without erythema, tonsillar hypertrophy or exudate. Airway patent. NECK: Trachea midline. Non tender CARDIOVASCULAR: Regular rate and rhythm without murmurs, gallops, or rubs. RESPIRATORY: Clear to auscultation. Breath sounds equal bilaterally. No wheezes, rales, or rhonchi. GASTROINTESTINAL: Abdomen soft, non-tender, nondistended. EXTREMITIES: No edema or joint tenderness. BACK: Nontender without deformity or crepitance. No flank tenderness. NEURO: AOx3. SKIN: No rash or erythema of visible areas Initial Vital Signs Initial Vital Signs: Vital Signs Pulse Rate 93 H 09/28/21 15:18 Blood Pressure 147/89 H 09/28/21 15:18 Pulse Oximetry 96 09/28/21 15:18 <Bernardo King DO - Last Filed: 09/29/21 01:24> Initial Vital Signs Initial Vital Signs: Vital Signs Pulse Rate 93 H 09/28/21 15:18 Blood Pressure 147/89 H 09/28/21 15:18 Pulse Oximetry 96 09/28/21 15:18 Course <DO Bereket Gipson Last Filed: 09/28/21 21:03> Orders Ordered: ED Orders 09/28/21 16:59 Urinalysis and Microscopic Stat 09/28/21 20:04 BMP [Basic Metabolic Panel] Stat Complete Blood Count AUTO DIFF Stat 09/28/21 21:35 Type and Screen Stat Acetaminophen (Acetaminophen 325 Mg Tablet) 650 mg PO Q6H PRN PRN Reason: Fever/Mild Pain (1-3) Citalopram Hydrobromide (Citalopram 10 Mg Tablet) 10 mg PO DAILY [facility] Last Admin: 09/29/21 00:44 Dose: 10 mg Documented By: ARETHA Sodium Chloride (Normal Saline 0.9%) 1,000 mls @ 100 mls/hr IV CONT JOSH Last Admin: 09/29/21 00:27 Dose: 100 mls/hr Documented By: ARETHA Naloxone HCl (Naloxone 0.4 Mg/Ml Vial) 0.2 mg IV Q2MIN PRN PRN Reason: Opiate Reversal Pantoprazole Sodium (Pantoprazole 40 Mg Vial) 40 mg IV BID JOSH Zolpidem Tartrate (Zolpidem 5 Mg Tablet) 10 mg PO BEDTIME PRN PRN Reason: Sleep Last Admin: 09/29/21 00:30 Dose: 10 mg Documented By: ARETHA Discontinued Medications Acetaminophen (Acetaminophen 325 Mg Tablet) 650 mg PO Q6HR JOSH Citalopram Hydrobromide (Citalopram 10 Mg Tablet) 10 mg PO DAILY JOSH Citalopram Hydrobromide (Citalopram 10 Mg Tablet) 10 mg PO DAILY JOSH Sodium Chloride (Normal Saline 0.9%) 1,000 mls @ 1,000 mls/hr IV BOLUS ONE Stop: 09/28/21 16:33 Last Infusion: 09/28/21 17:43 Dose: 0 mls/hr Documented By: Admin: 09/28/21 15:39 Dose: 1,000 mls/hr Documented By: FABIANA Sodium Chloride (Normal Saline 0.9%) 1,000 mls @ 1,000 mls/hr IV BOLUS ONE Stop: 09/28/21 19:50 Last Infusion: 09/28/21 20:30 Dose: 0 mls/hr Documented By: Admin: 09/28/21 19:05 Dose: 1,000 mls/hr Documented By: EB Sodium Chloride (Normal Saline 0.9%) 1,000 mls @ 100 mls/hr IV CONT JOSH Naloxone HCl (Naloxone 0.4 Mg/Ml Vial) 0.2 mg IV Q2MIN PRN PRN Reason: Opiate Reversal Pantoprazole Sodium (Pantoprazole 40 Mg Vial) 40 mg IV BID [facility] Zolpidem Tartrate (Zolpidem 5 Mg Tablet) 10 mg PO BEDTIME PRN PRN Reason: Sleep Vital Signs Vital signs: Vital Signs - 8 hr 09/28/21 17:30 09/28/21 18:00 09/28/21 18:30 Pulse Rate 80 81 80 Respiratory Rate 26 H 20 8 L Blood Pressure Pulse Oximetry 98 95 95 Oxygen Delivery Method 09/28/21 19:00 09/28/21 19:30 09/28/21 20:00 Pulse Rate 81 79 82 Respiratory Rate 20 27 H 20 Blood Pressure Pulse Oximetry 92 98 96 Oxygen Delivery Method 09/28/21 20:25 09/28/21 20:25 09/28/21 20:30 Pulse Rate 82 Respiratory Rate 16 Blood Pressure 183/90 H 174/85 H Pulse Oximetry 99 Oxygen Delivery Method 09/28/21 20:30 09/28/21 21:00 09/28/21 21:00 Pulse Rate 78 80 Respiratory Rate 22 15 Blood Pressure 178/96 H Pulse Oximetry 97 94 Oxygen Delivery Method 09/28/21 21:30 09/28/21 21:30 09/28/21 22:00 Pulse Rate 82 Respiratory Rate 20 Blood Pressure 192/97 H 195/96 H Pulse Oximetry 95 Oxygen Delivery Method 09/28/21 22:00 09/28/21 22:30 Pulse Rate 81 83 Respiratory Rate 22 22 Blood Pressure Pulse Oximetry 96 98 Oxygen Delivery Method Room Air <Bernardo King DO - Last Filed: 09/29/21 01:24> Orders Ordered: ED Orders 09/28/21 16:59 Urinalysis and Microscopic Stat 09/28/21 20:04 BMP [Basic Metabolic Panel] Stat Complete Blood Count AUTO DIFF Stat 09/28/21 21:35 Type and Screen Stat Acetaminophen (Acetaminophen 325 Mg Tablet) 650 mg PO Q6H PRN PRN Reason: Fever/Mild Pain (1-3) Citalopram Hydrobromide (Citalopram 10 Mg Tablet) 10 mg PO DAILY [facility] Last Admin: 09/29/21 00:44 Dose: 10 mg Documented By: ARETHA Sodium Chloride (Normal Saline 0.9%) 1,000 mls @ 100 mls/hr IV CONT JOSH Last Admin: 09/29/21 00:27 Dose: 100 mls/hr Documented By: ARETHA Naloxone HCl (Naloxone 0.4 Mg/Ml Vial) 0.2 mg IV Q2MIN PRN PRN Reason: Opiate Reversal Pantoprazole Sodium (Pantoprazole 40 Mg Vial) 40 mg IV BID JOSH Zolpidem Tartrate (Zolpidem 5 Mg Tablet) 10 mg PO BEDTIME PRN PRN Reason: Sleep Last Admin: 09/29/21 00:30 Dose: 10 mg Documented By: ARETHA Discontinued Medications Acetaminophen (Acetaminophen 325 Mg Tablet) 650 mg PO Q6HR JOSH Citalopram Hydrobromide (Citalopram 10 Mg Tablet) 10 mg PO DAILY JOSH Citalopram Hydrobromide (Citalopram 10 Mg Tablet) 10 mg PO DAILY JOSH Sodium Chloride (Normal Saline 0.9%) 1,000 mls @ 1,000 mls/hr IV BOLUS ONE Stop: 09/28/21 16:33 Last Infusion: 09/28/21 17:43 Dose: 0 mls/hr Documented By: Admin: 09/28/21 15:39 Dose: 1,000 mls/hr Documented By: FABIANA Sodium Chloride (Normal Saline 0.9%) 1,000 mls @ 1,000 mls/hr IV BOLUS ONE Stop: 09/28/21 19:50 Last Infusion: 09/28/21 20:30 Dose: 0 mls/hr Documented By: Admin: 09/28/21 19:05 Dose: 1,000 mls/hr Documented By: FABIANA Sodium Chloride (Normal Saline 0.9%) 1,000 mls @ 100 mls/hr IV CONT JOSH Naloxone HCl (Naloxone 0.4 Mg/Ml Vial) 0.2 mg IV Q2MIN PRN PRN Reason: Opiate Reversal Pantoprazole Sodium (Pantoprazole 40 Mg Vial) 40 mg IV BID JOSH Zolpidem Tartrate (Zolpidem 5 Mg Tablet) 10 mg PO BEDTIME PRN PRN Reason: Sleep Vital Signs Vital signs: Vital Signs - 8 hr 09/28/21 17:30 09/28/21 18:00 06/16/22 18:30 Pulse Rate 80 81 80 Respiratory Rate 26 H 20 8 L Blood Pressure Pulse Oximetry 98 95 95 Oxygen Delivery Method 09/28/21 19:00 09/28/21 19:30 09/28/21 20:00 Pulse Rate 81 79 82 Respiratory Rate 20 27 H 20 Blood Pressure Pulse Oximetry 92 98 96 Oxygen Delivery Method 09/28/21 20:25 09/28/21 20:25 09/28/21 20:30 Pulse Rate 82 Respiratory Rate 16 Blood Pressure 183/90 H 174/85 H Pulse Oximetry 99 Oxygen Delivery Method 09/28/21 20:30 09/28/21 21:00 09/28/21 21:00 Pulse Rate 78 80 Respiratory Rate 22 15 Blood Pressure 178/96 H Pulse Oximetry 97 94 Oxygen Delivery Method 09/28/21 21:30 09/28/21 21:30 09/28/21 22:00 Pulse Rate 82 Respiratory Rate 20 Blood Pressure 192/97 H 195/96 H Pulse Oximetry 95 Oxygen Delivery Method 09/28/21 22:00 09/28/21 22:30 Pulse Rate 81 83 Respiratory Rate 22 22 Blood Pressure Pulse Oximetry 96 98 Oxygen Delivery Method Room Air MDM - Weakness <Clive Campo DO - Last Filed: 09/28/21 21:03> Differential Diagnosis Differential diagnosis: Likely acute myocardial infarction, anemia, hypoglycemia, rhabdomyolysis, sepsis and dehydration Medical Records Medical records narrative: 1999 - Patient signed out to Dr. King pending repeat labs, response to fluids, etc. Lab Data Result diagrams: 09/28/21 20:04 09/28/21 20:04 Labs: Lab Results 09/28/21 09/28/21 09/28/21 Range/Units 15:27 16:02 16:59 WBC 8.1 (4.5-11.0) X10^3/uL RBC 3.27 L (4.0-5.2) X10^6/uL Hgb 9.1 L (12.0-16.0) g/dL Hct 27.1 L (36-46) % MCV 83.0 (80-100) fL MCH 28.0 (26-34) PG MCHC 33.7 (30-36) % RDW 15.1 H (11.6-14.8) % Plt Count TNP Neut % (Auto) 64.4 (50-75) % Lymph % (Auto) 30.9 (25-40) % [place] % (Auto) 3.8 (3-14) % Eos % (Auto) 0.4 L (2-4) % Baso % (Auto) 0.5 (0-2) % Neut # (Auto) 5200 (9541-0461) /uL Lymph # (Auto) 2500 (4541-5615) /uL [place] # (Auto) 300 (0-900) /uL Eos # (Auto) 0 (0-450) /uL Baso # (Auto) 0 (0-100) /uL Platelet Estimate Adequate on smear RBC Morphology Normal morphology Sodium TNP Potassium TNP Chloride TNP Carbon Dioxide TNP BUN 14 (7-17) mg/dL Creatinine 0.93 (0.52-1.04) mg/dL Estimated GFR > 60 (>60) mL/min BUN/Creatinine Ratio 15.1 (6-22) Glucose 102 H (70-100) mg/dL Calcium 7.7 L (8.4-10.2) mg/dL Total Bilirubin TNP AST 91 H (14-36) IU/L ALT 28 (<35) IU/L Alkaline Phosphatase TNP Total Creatine Kinase 62 (30-135) U/L CK-MB (CK-2) TNP CK-MB (CK-2) Rel Index TNP Troponin I < 0.024 (0.01-0.034) ng/mL Total Protein 9.6 H (6.3-8.2) g/dL Albumin 3.4 L (3.5-5.0) g/dL Globulin 6.2 H (1.7-4.1) g/dL Albumin/Globulin Ratio 0.5 L (1.0-2.8) Lipase 127 (23-300) U/L Urine Color Yellow Urine Appearance Clear Urine pH 6.0 (4.5-8.0) Ur Specific [place] <=1.005 (1.000-1.035) Urine Protein Negative (Negative) Urine Glucose (UA) Negative (Negative) g/dL Urine Ketones Negative (NEGATIVE) Urine Occult Blood Trace-lysed (Negative) Urine Nitrate Negative (Negative) Urine Bilirubin Negative (NEGATIVE) Urine Urobilinogen 0.2 (0.2) E.U./dL Ur Leukocyte Esterase Negative (NEGATIVE) Urine RBC None seen (0-5/HPF) Urine WBC None seen (0-5/HPF) Ur Squamous Epith Cells 1-5 /hpf (0-5/HPF) Urine Bacteria None seen (None) Ur Culture Indicated? Cult not indicated Blood Type Antibody Screen Crossmatch 09/28/21 09/28/21 09/28/21 Range/Units 20:04 20:04 21:35 WBC 6.8 (4.5-11.0) X10^3/uL RBC 2.74 L (4.0-5.2) X10^6/uL Hgb 7.9 L (12.0-16.0) g/dL Hct 22.6 L (36-46) % MCV 82.4 (80-100) fL MCH 28.9 (26-34) PG MCHC 35.1 (30-36) % RDW 14.9 H (11.6-14.8) % Plt Count 239 Neut % (Auto) 50.0 (50-75) % Lymph % (Auto) 44.7 H (25-40) % [place] % (Auto) 4.9 (3-14) % Eos % (Auto) 0.2 L (2-4) % Baso % (Auto) 0.2 (0-2) % Neut # (Auto) 3400 (9524-8329) /uL Lymph # (Auto) 3000 (8137-1190) /uL [place] # (Auto) 300 (0-900) /uL Eos # (Auto) 0 (0-450) /uL Baso # (Auto) 0 (0-100) /uL Platelet Estimate RBC Morphology Sodium 138 Potassium 4.1 Chloride 107 Carbon Dioxide 31 BUN 15 (7-17) mg/dL Creatinine 1.17 H (0.52-1.04) mg/dL Estimated GFR 54 L (>60) mL/min BUN/Creatinine Ratio 12.8 (6-22) Glucose 122 H (70-100) mg/dL Calcium 10.4 H (8.4-10.2) mg/dL Total Bilirubin AST (14-36) IU/L ALT (<35) IU/L Alkaline Phosphatase Total Creatine Kinase (30-135) U/L CK-MB (CK-2) CK-MB (CK-2) Rel Index Troponin I (0.01-0.034) ng/mL Total Protein (6.3-8.2) g/dL Albumin (3.5-5.0) g/dL Globulin (1.7-4.1) g/dL Albumin/Globulin Ratio (1.0-2.8) Lipase (23-300) U/L Urine Color Urine Appearance Urine pH (4.5-8.0) Ur Specific [place] (1.000-1.035) Urine Protein (Negative) Urine Glucose (UA) (Negative) g/dL Urine Ketones (NEGATIVE) Urine Occult Blood (Negative) Urine Nitrate (Negative) Urine Bilirubin (NEGATIVE) Urine Urobilinogen (0.2) E.U./dL Ur Leukocyte Esterase (NEGATIVE) Urine RBC (0-5/HPF) Urine WBC (0-5/HPF) Ur Squamous Epith Cells (0-5/HPF) Urine Bacteria (None) Ur Culture Indicated? Blood Type A Positive Antibody Screen Negative Crossmatch See Detail Imaging Data Chest x-ray: Radiologist Impression: ? Chart Viewer Diagnostics Subcategory All Activity ??:?? All Time ??:?? All Subcategories Filter Laboratory Imaging Microbiology Pathology Blood Bank Tests Cardiovascular Other Specialty DATE TYPE STATUS REF RANGE/AUTHOR Hx Today 15:35 Chest X-Ray Signed Navneet Herrera 09/16/21 10:57 Chest X-Ray Signed Live Moreira 09/16/20 15:17 Wrist X-Ray Signed Ghislaine Sellers 01/16/20 00:00 Mammogram Screening Signed Addi Lopez 11/19/19 14:48 Chest X-Ray Signed Ghislaine Sellers 01/29/19 00:00 Shoulder MRI Signed Josh Choe 01/16/19 00:00 Shoulder X-Ray Signed Josh Choe 02/01/18 00:00 Mammogram Screening Signed Shanda Goyal Andrea F ED 60, F?1960 MRN#? [id number] REG ER,?Main ED??R12?? 167.64cm 81.193kg BMI: 28.9kg/m? Weakness Acc#? [id number] Resus Status Not Ordered No Hx Avail Special Indicators No Data to Display Home Meds Not Confirmed Prescription Monitoring Program Total 20 MME/Day Unconfirmed MEDICATIONS (INSTRUCTIONS) LAST TAKEN Active ??albuterol sulfate ??2 [id number] of breath or wheezing#8.5 grams ??CA PANTOTHENATE/FOLIC ACID/VIT (MULTIVITAMIN) ??1 tabPOQDAY##0 ??Citalopram Hydrobromide (Citalopram HBr) ??10 mgPOQ DAY##0 ??clindamycin HCl ??300 mgPOTID#30 caps ??hydrocodone-acetaminophen ??1 [id number]#14 tabs 20 MME/Day ??Zolpidem Tartrate (Ambien) ??10 mgPOPRN##0 ?Not Included in Conflicts Allergies No Known Drug Allergies Problems ? ONSET Parainfluenza virus bronchitis Dental abscess Vital Signs Today 16:30 BP 178/100?H Pulse 77? Resp 14? O2 Sat 98? Diagnostics Reports Mauricio Rdz??60??F??1960 ? Allergy/Adv: No Known Drug Allergies (More??) Close Chest X-Ray (Signed) Navneet Herrera - 09/28/21 Chest X-Ray (Signed) Live Moreira - 09/16/21 Wrist X-Ray (Signed) Ghislaine Sellers - 09/16/20 Mammogram Screening (Signed) Addi Lopez - 01/16/20 Chest X-Ray (Signed) Ghislaine Sellers - 11/19/19 Shoulder MRI (Signed) Josh Choe - 01/29/19 Shoulder X-Ray (Signed) Josh Choe - 01/16/19 Mammogram Screening (Signed) Shanda Goyal - 02/01/18 Launch?[address] [address] XRay Report Signed Patient: Mauricio Rdz MR#: [id number] : 1960 Acct:[id number] Age/Sex: 60 / F Date of Service: 09/28/21 Loc: ED Accession Number: [id number] ?? Procedure: XR chest 1V Ordering Provider: Clive Campo D.O. PROCEDURE:? XR CHEST 1V ? INDICATIONS:? weakness ? TECHNIQUE:? One view of the chest was acquired.? ? COMPARISON:? [facility], CR, XR CHEST 1V, 11/19/2019, 15:07.? [facility], CR, XR CHEST 2V, 09/16/2021, 10:55. ? FINDINGS:? ? Surgical changes and devices:? None.? ? Lungs and pleura:? On this semiupright portable chest examination, no large pneumothorax or large pleural effusions are seen.? No focal infiltrates are seen.? Mild generalized interstitial prominence can be seen. Low lung volumes are noted. This causes a crowded appearance to the lung markings and limits evaluation.? ? Mediastinum:? Mediastinal contours appear normal.? Heart size is normal.? ? Bones and chest wall:? No suspicious bony lesions.? Age-appropriate bony degenerative changes are seen.? Overlying soft tissues appear unremarkable.? ? ? IMPRESSION:? Limited portable chest study demonstrating mild interstitial prominence.? Differential diagnosis includes a mild degree of pulmonary edema as well as artifact from the low lung volumes.? Please also consider atypical infiltrate, including COVID pneumonia. ? If clinically appropriate, a short-term followup chest series (with PA and lateral views) performed in deep inspiration is suggested for further evaluation.? Dictated by: Navneet Herrera M.D. on 09/28/2021 at 15:06 ? ? Approved by: Navneet Herrera M.D. on 09/28/2021 at 15:07 ? MDM Narrative Medical decision making narrative: Patient admittedly feels much better on arrival with reassuring exam and vitals. She has a difficult lab draw and her blood on draw is reportedly highly viscous and very slow to drop. There was a significant delay in obtaining these labs, however on receipt of results her H/H is noted to be low at which point she mentions that she has had occasional bloody stools off and on over the past year. They are still unable to get lytes. Fluids ordered. <Bernardo King, DO - Last Filed: 09/29/21 01:24> Lab Data Labs: Lab Results 09/28/21 09/28/21 09/28/21 Range/Units 15:27 16:02 16:59 WBC 8.1 (4.5-11.0) X10^3/uL RBC 3.27 L (4.0-5.2) X10^6/uL Hgb 9.1 L (12.0-16.0) g/dL Hct 27.1 L (36-46) % MCV 83.0 (80-100) fL MCH 28.0 (26-34) PG MCHC 33.7 (30-36) % RDW 15.1 H (11.6-14.8) % Plt Count TNP Neut % (Auto) 64.4 (50-75) % Lymph % (Auto) 30.9 (25-40) % [place] % (Auto) 3.8 (3-14) % Eos % (Auto) 0.4 L (2-4) % Baso % (Auto) 0.5 (0-2) % Neut # (Auto) 5200 (2522-4792) /uL Lymph # (Auto) 2500 (3352-5686) /uL [place] # (Auto) 300 (0-900) /uL Eos # (Auto) 0 (0-450) /uL Baso # (Auto) 0 (0-100) /uL Platelet Estimate Adequate on smear RBC Morphology Normal morphology Sodium TNP Potassium TNP Chloride TNP Carbon Dioxide TNP BUN 14 (7-17) mg/dL Creatinine 0.93 (0.52-1.04) mg/dL Estimated GFR > 60 (>60) mL/min BUN/Creatinine Ratio 15.1 (6-22) Glucose 102 H (70-100) mg/dL Calcium 7.7 L (8.4-10.2) mg/dL Total Bilirubin TNP AST 91 H (14-36) IU/L ALT 28 (<35) IU/L Alkaline Phosphatase TNP Total Creatine Kinase 62 (30-135) U/L CK-MB (CK-2) TNP CK-MB (CK-2) Rel Index TNP Troponin I < 0.024 (0.01-0.034) ng/mL Total Protein 9.6 H (6.3-8.2) g/dL Albumin 3.4 L (3.5-5.0) g/dL Globulin 6.2 H (1.7-4.1) g/dL Albumin/Globulin Ratio 0.5 L (1.0-2.8) Lipase 127 (23-300) U/L Urine Color Yellow Urine Appearance Clear Urine pH 6.0 (4.5-8.0) Ur Specific [place] <=1.005 (1.000-1.035) Urine Protein Negative (Negative) Urine Glucose (UA) Negative (Negative) g/dL Urine Ketones Negative (NEGATIVE) Urine Occult Blood Trace-lysed (Negative) Urine Nitrate Negative (Negative) Urine Bilirubin Negative (NEGATIVE) Urine Urobilinogen 0.2 (0.2) E.U./dL Ur Leukocyte Esterase Negative (NEGATIVE) Urine RBC None seen (0-5/HPF) Urine WBC None seen (0-5/HPF) Ur Squamous Epith Cells 1-5 /hpf (0-5/HPF) Urine Bacteria None seen (None) Ur Culture Indicated? Cult not indicated Blood Type Antibody Screen Crossmatch 09/28/21 09/28/21 09/28/21 Range/Units 20:04 20:04 21:35 WBC 6.8 (4.5-11.0) X10^3/uL RBC 2.74 L (4.0-5.2) X10^6/uL Hgb 7.9 L (12.0-16.0) g/dL Hct 22.6 L (36-46) % MCV 82.4 (80-100) fL MCH 28.9 (26-34) PG MCHC 35.1 (30-36) % RDW 14.9 H (11.6-14.8) % Plt Count 239 Neut % (Auto) 50.0 (50-75) % Lymph % (Auto) 44.7 H (25-40) % [place] % (Auto) 4.9 (3-14) % Eos % (Auto) 0.2 L (2-4) % Baso % (Auto) 0.2 (0-2) % Neut # (Auto) 3400 (4414-2286) /uL Lymph # (Auto) 3000 (5595-7615) /uL [place] # (Auto) 300 (0-900) /uL Eos # (Auto) 0 (0-450) /uL Baso # (Auto) 0 (0-100) /uL Platelet Estimate RBC Morphology Sodium 138 Potassium 4.1 Chloride 107 Carbon Dioxide 31 BUN 15 (7-17) mg/dL Creatinine 1.17 H (0.52-1.04) mg/dL Estimated GFR 54 L (>60) mL/min BUN/Creatinine Ratio 12.8 (6-22) Glucose 122 H (70-100) mg/dL Calcium 10.4 H (8.4-10.2) mg/dL Total Bilirubin AST (14-36) IU/L ALT (<35) IU/L Alkaline Phosphatase Total Creatine Kinase (30-135) U/L CK-MB (CK-2) CK-MB (CK-2) Rel Index Troponin I (0.01-0.034) ng/mL Total Protein (6.3-8.2) g/dL Albumin (3.5-5.0) g/dL Globulin (1.7-4.1) g/dL Albumin/Globulin Ratio (1.0-2.8) Lipase (23-300) U/L Urine Color Urine Appearance Urine pH (4.5-8.0) Ur Specific [place] (1.000-1.035) Urine Protein (Negative) Urine Glucose (UA) (Negative) g/dL Urine Ketones (NEGATIVE) Urine Occult Blood (Negative) Urine Nitrate (Negative) Urine Bilirubin (NEGATIVE) Urine Urobilinogen (0.2) E.U./dL Ur Leukocyte Esterase (NEGATIVE) Urine RBC (0-5/HPF) Urine WBC (0-5/HPF) Ur Squamous Epith Cells (0-5/HPF) Urine Bacteria (None) Ur Culture Indicated? Blood Type A Positive Antibody Screen Negative Crossmatch See Detail MDM Narrative Medical decision making narrative: Patient admittedly feels much better on arrival with reassuring exam and vitals. She has a difficult lab draw and her blood on draw is reportedly highly viscous and very slow to drop. There was a significant delay in obtaining these labs, however on receipt of results her H/H is noted to be low at which point she mentions that she has had occasional bloody stools off and on over the past year. They are still unable to get lytes. Fluids ordered. Dr King: Received turnover. Reviewed patient's history and physical exam. Patient did have a drop in her hemoglobin and hematocrit however this was after 2 L of normal saline. Her like to lytes were unremarkable. Unsure if the new hemoglobin and hematocrit are down because of a delusional fact or if she was actually hemoconcentrated to begin with. She states she has had bloody stools for several months now however has been worsening recently. She was recently diagnosed with parainfluenza virus and does states she has been taking anti-inflammatories for the body aches and fevers. Given her presenting symptoms today and the decrease in her hemoglobin hematocrit patient does require admission to the hospital for further evaluation and treatment. Discussed the case with Dr. Michelle on-call for General surgery who stated that he would see the patient upon admission. Discussed the case with Dr. Johnson on-call for the patient's primary doctor who will admit for further evaluation and treatment. Discharge Plan Departure Patient Disposition: Admitted as Observation Clinical Impression: Anemia, Pre-syncope Admit Date/Time: 09/28/21 22:37 Admit Provider: Magdiel Johnson
--- NOTE | 2021-09-28 17:34 | PC.NURSE ---
Pt blood hemolyzed in lab again. Per lab, pt blood has high viscosity. New PIV started in pt left bicep area, new blood sample sent.
[2021-09-28 18:04] LABS: Appearance Urine UA CLEAR; Bilirubin Urine UA NEGATIVE (NEGATIVE); Color Urine UA YELLOW; Glucose Urine UA NEGATIVE (Negative); Ketones Urine UA NEGATIVE (NEGATIVE); Leukocyte Esterase Urine UA NEGATIVE (NEGATIVE); Nitrite Urine UA NEGATIVE (Negative); Occult Blood Urine UA TRACE-LYSED (Negative); Protein Urine UA NEGATIVE (Negative); Specific Gravity Urine UA <=1.005 (1.000-1.035); Urobilinogen Urine UA 0.2 E.U./dL (0.2)
[2021-09-28 18:10] LABS: Bacteria Urine None Seen; Culture Indicated Urine Cult Not Indicated; RBC Urine None Seen (0-5/HPF); Squamous Epithelial Cell Urine 1-5 /HPF (0-5/HPF); WBC Urine None Seen (0-5/HPF)
[2021-09-28 18:18] LABS: Basophils Absolute Auto 0 /uL (0-100); Basophils Percent Auto 0.5 % (0-2); Eosinophils Absolute Auto 0 /uL (0-450); Eosinophils Percent Auto 0.4 % (2-4); Hematocrit 27.1 % (36-46); Hemoglobin 9.1 g/dL (12.0-16.0); Lymphocytes Absolute Auto 2500 /uL (1100-4500); Lymphocytes Percent Auto 30.9 % (25-40); Mean Corpuscular HGB Conc 33.7 % (30-36); Monocytes Absolute Auto 300 /uL (0-900); Monocytes Percent Auto 3.8 % (3-14); Neutrophils Absolute Auto 5200 /uL (1500-7000); Neutrophils Percent Auto 64.4 % (50-75); Red Blood Cell Count 3.27 X10^6/uL (4.0-5.2); Red Cell Distribution Width 15.1 % (11.6-14.8); White Blood Cell Count 8.1 X10^3/uL (4.5-11.0)
[2021-09-28 18:19] LABS: Add Manual Diff / Slide Review SLIDE REVIEW
[2021-09-28 18:22] LABS: Platelet Estimate Adequate on smear; RBC Morphology Normal Morphology
[2021-09-28 18:36] LABS: Alanine Aminotransferase 28 IU/L (<35); Albumin 3.4 g/dL (3.5-5.0); Albumin Globulin Ratio 0.5 (1.0-2.8); Aspartate Aminotransferase 91 IU/L (14-36); BUN Creatinine Ratio 15.1 (6-22); Blood Urea Nitrogen 14 mg/dL (7-17); Calcium 7.7 mg/dL (8.4-10.2); Creatine Kinase 62 U/L (30-135); Estimated Glomerular Filt Rate > 60 mL/min (>60); Globulin 6.2 g/dL (1.7-4.1); Glucose 102 mg/dL (70-100); Lipase 127 U/L (23-300); Total Protein 9.6 g/dL (6.3-8.2)
[2021-09-28 18:38] LABS: HEMOLYSIS < 15 (0-50)
--- NOTE | 2021-09-28 18:40 | PC.NURSE ---
Pt now endorsing that she has had blood in her stool over the last year, with worsening over the last week or so. Pt denies pain at this time. Pt VS remain stable. Provider notified.
[2021-09-28 18:42] LABS: Troponin I < 0.024 ng/mL (0.01-0.034)
[2021-09-28 20:34] LABS: Add Manual Diff / Slide Review NO; Basophils Absolute Auto 0 /uL (0-100); Basophils Percent Auto 0.2 % (0-2); Eosinophils Absolute Auto 0 /uL (0-450); Eosinophils Percent Auto 0.2 % (2-4); Hematocrit 22.6 % (36-46); Hemoglobin 7.9 g/dL (12.0-16.0); Lymphocytes Absolute Auto 3000 /uL (1100-4500); Lymphocytes Percent Auto 44.7 % (25-40); Mean Corpuscular HGB Conc 35.1 % (30-36); Mean Corpuscular Hemoglobin 28.9 PG (26-34); Mean Corpuscular Volume 82.4 fL (80-100); Monocytes Absolute Auto 300 /uL (0-900); Monocytes Percent Auto 4.9 % (3-14); Neutrophils Absolute Auto 3400 /uL (1500-7000); Platelet Count 239 X10^3/uL (150-400); Red Blood Cell Count 2.74 X10^6/uL (4.0-5.2); Red Cell Distribution Width 14.9 % (11.6-14.8); White Blood Cell Count 6.8 X10^3/uL (4.5-11.0)
[2021-09-28 20:47] LABS: BUN Creatinine Ratio 12.8 (6-22); Blood Urea Nitrogen 15 mg/dL (7-17); Carbon Dioxide 31 mmol/L (22-32); Chloride 107 mmol/L (98-107); Estimated Glomerular Filt Rate 54 mL/min (>60); Potassium 4.1 mmol/L (3.4-5.1); Sodium 138 mmol/L (137-145)
[2021-09-28 20:48] LABS: Calcium 10.4 mg/dL (8.4-10.2); Glucose 122 mg/dL (70-100); HEMOLYSIS < 15 (0-50)
[2021-09-28 23:01] LABS: COVID19 -Nasal RAPID Negative (Negative)
--- NOTE | 2021-09-28 23:10 | P.HP_ITS ---
History of Present Illness History of Present Illness Date Patient Seen: 09/28/21 Time Patient Seen: 23:10 Date of Onset of Symptoms: 09/28/21 Chief complaint: Weakness Narrative: Patient is a 60-year-old female patient of Dr. Bonilla who presents with acute onset of weakness. Patient basically got Jell-O legs and then could not get up. Was out walking on the beach. Could not get up for about an hour and a half eventually called 911 is brought in. She has had no chest pain no shortness of breath no other changes. Does have a history of asthma but has not felt as if anything was significant. Patient but took notes that the last 2 weeks she maybe has been feeling a little weaker. She has been having bright red blood per rectum for the last year. Intermittent thought it was more constipation related. But has been pretty more significant over the last 2 weeks maybe more. Maybe more than a month. Not with every bowel movement with most. Has denied any black bowel movements. She has had no pain. No abdominal pain. No fevers no chills no night sweats. No weight loss. Has otherwise been feeling well. No other changes. She has noted she also has some bloody noses work is been persistent. Also has had some ear pain on the right. Was told she had a perforation. Past medical history significant for depression/anxiety, insomnia. Past surgical history recent 7 weeks ago tummy tuck and liposuction Social history lives with . Family history noncontributory. Patient History Medical History Anxiety Surgical History Status post surgery (02/03/10) Status post surgery (12/02/12) Family & Social History Social History: household members spouse Prior Living Arrangements House Safety & Behavioral: Feels Safe in Current Yes Environment Been Physically Hurt or No Threatened By a Person Tobacco & Substance use: Smoking Status Never smoker alcohol intake current alcohol intake frequency other Substance Use Type does not use Meds Home Medications and Allergies Home Medications Medication Instructions Recorded Confirmed Type Citalopram Hydrobromide 10 mg PO Q DAY ##0 02/03/10 09/24/21 History (Citalopram HBr) Zolpidem Tartrate (Ambien) 10 mg PO PRN ##0 02/03/10 09/24/21 History CA PANTOTHENATE/FOLIC ACID/VIT 1 tab PO QDAY ##0 12/05/12 09/24/21 History (MULTIVITAMIN) hydrocodone 5 mg-acetaminophen 325 1 tab PO Q6H PRN pain #14 tabs 09/16/20 09/24/21 Rx mg tablet albuterol sulfate 90 mcg/actuation 2 puff inhalation Q4-6H PRN 09/16/21 09/24/21 Rx aerosol inhaler shortness of breath or wheezing #8.5 grams Allergies Allergy/AdvReac Type Severity Reaction Status Date / Time No Known Drug Allergies Allergy Verified 09/24/21 14:04 Review of Systems Review of Systems Narrative: All negative except above Exam Vital Signs (past 8 hours): - 09/28/21 15:21 09/28/21 15:18 09/28/21 15:18 Temperature 98 F Pulse Rate 94 H 93 H Respiratory Rate 21 Blood Pressure 147/89 H 147/89 H Pulse Oximetry 96 96 Oxygen Delivery Method Room Air 09/28/21 15:23 09/28/21 15:23 09/28/21 15:30 Temperature Pulse Rate 85 Respiratory Rate 24 Blood Pressure 160/89 H 154/86 H Pulse Oximetry 97 Oxygen Delivery Method 09/28/21 15:30 09/28/21 16:00 09/28/21 16:00 Temperature Pulse Rate 83 81 Respiratory Rate 21 19 Blood Pressure 172/100 H Pulse Oximetry 95 100 Oxygen Delivery Method 09/28/21 16:30 09/28/21 16:30 09/28/21 17:05 Temperature Pulse Rate 77 93 H Respiratory Rate 14 14 Blood Pressure 178/100 H Pulse Oximetry 98 91 Oxygen Delivery Method 09/28/21 17:06 09/28/21 17:06 09/28/21 17:30 Temperature Pulse Rate 83 80 Respiratory Rate 14 26 H Blood Pressure 183/93 H Pulse Oximetry 99 98 Oxygen Delivery Method 09/28/21 18:00 09/28/21 18:30 09/28/21 19:00 Temperature Pulse Rate 81 80 81 Respiratory Rate 20 8 L 20 Blood Pressure Pulse Oximetry 95 95 92 Oxygen Delivery Method 09/28/21 19:30 09/28/21 20:00 09/28/21 20:25 Temperature Pulse Rate 79 82 82 Respiratory Rate 27 H 20 16 Blood Pressure Pulse Oximetry 98 96 99 Oxygen Delivery Method 09/28/21 20:25 09/28/21 20:30 09/28/21 20:30 Temperature Pulse Rate 78 Respiratory Rate 22 Blood Pressure 183/90 H 174/85 H Pulse Oximetry 97 Oxygen Delivery Method 09/28/21 21:00 09/28/21 21:00 09/28/21 21:30 Temperature Pulse Rate 80 Respiratory Rate 15 Blood Pressure 178/96 H 192/97 H Pulse Oximetry 94 Oxygen Delivery Method 09/28/21 21:30 09/28/21 22:00 09/28/21 22:00 Temperature Pulse Rate 82 81 Respiratory Rate 20 22 Blood Pressure 195/96 H Pulse Oximetry 95 96 Oxygen Delivery Method 09/28/21 22:30 Temperature Pulse Rate 83 Respiratory Rate 22 Blood Pressure Pulse Oximetry 98 Oxygen Delivery Method Room Air Oxygen Delivery Method Room Air Narrative Exam Narrative: Alert female sitting in bed no acute distress right ear tympanic membrane slightly dull. Increased vascularity with what appears to be a possible perforation in the center of the lower drum. Bulbar conjunctiva pale mucous membranes moist neck supple without adenopathy lungs are clear. Heart regular rate and rhythm. Abdomen is soft positive bowel sounds she has got a well- healed scar inferior aspect of her lower abdomen across the entire of area no rebound guarding no masses extremities without cyanosis clubbing edema neurologic exam is nonfocal. Skin without rash Objective Labs Result Diagrams: 09/28/21 20:04 09/28/21 20:04 Labs: Laboratory Results - last 24 hr 09/28/21 09/28/21 09/28/21 15:27 16:02 16:59 WBC 8.1 RBC 3.27 L Hgb 9.1 L Hct 27.1 L MCV 83.0 MCH 28.0 MCHC 33.7 RDW 15.1 H Plt Count TNP Neut % (Auto) 64.4 Lymph % (Auto) 30.9 [place] % (Auto) 3.8 Eos % (Auto) 0.4 L Baso % (Auto) 0.5 Neut # (Auto) 5200 Lymph # (Auto) 2500 [place] # (Auto) 300 Eos # (Auto) 0 Baso # (Auto) 0 Platelet Estimate Adequate on smear RBC Morphology Normal morphology Sodium TNP Potassium TNP Chloride TNP Carbon Dioxide TNP BUN 14 Creatinine 0.93 Estimated GFR > 60 BUN/Creatinine Ratio 15.1 Glucose 102 H Calcium 7.7 L Total Bilirubin TNP AST 91 H ALT 28 Alkaline Phosphatase TNP Total Creatine Kinase 62 CK-MB (CK-2) TNP CK-MB (CK-2) Rel Index TNP Troponin I < 0.024 Total Protein 9.6 H Albumin 3.4 L Globulin 6.2 H Albumin/Globulin Ratio 0.5 L Lipase 127 Urine Color Yellow Urine Appearance Clear Urine pH 6.0 Ur Specific [place] <=1.005 Urine Protein Negative Urine Glucose (UA) Negative Urine Ketones Negative Urine Occult Blood Trace-lysed Urine Nitrate Negative Urine Bilirubin Negative Urine Urobilinogen 0.2 Ur Leukocyte Esterase Negative Urine RBC None seen Urine WBC None seen Ur Squamous Epith Cells 1-5 /hpf Urine Bacteria None seen Ur Culture Indicated? Cult not indicated SARS-CoV-2 (PCR) Blood Type Antibody Screen Crossmatch 09/28/21 09/28/21 09/28/21 20:04 20:04 21:35 WBC 6.8 RBC 2.74 L Hgb 7.9 L Hct 22.6 L MCV 82.4 MCH 28.9 MCHC 35.1 RDW 14.9 H Plt Count 239 Neut % (Auto) 50.0 Lymph % (Auto) 44.7 H [place] % (Auto) 4.9 Eos % (Auto) 0.2 L Baso % (Auto) 0.2 Neut # (Auto) 3400 Lymph # (Auto) 3000 [place] # (Auto) 300 Eos # (Auto) 0 Baso # (Auto) 0 Platelet Estimate RBC Morphology Sodium 138 Potassium 4.1 Chloride 107 Carbon Dioxide 31 BUN 15 Creatinine 1.17 H Estimated GFR 54 L BUN/Creatinine Ratio 12.8 Glucose 122 H Calcium 10.4 H Total Bilirubin AST ALT Alkaline Phosphatase Total Creatine Kinase CK-MB (CK-2) CK-MB (CK-2) Rel Index Troponin I Total Protein Albumin Globulin Albumin/Globulin Ratio Lipase Urine Color Urine Appearance Urine pH Ur Specific [place] Urine Protein Urine Glucose (UA) Urine Ketones Urine Occult Blood Urine Nitrate Urine Bilirubin Urine Urobilinogen Ur Leukocyte Esterase Urine RBC Urine WBC Ur Squamous Epith Cells Urine Bacteria Ur Culture Indicated? SARS-CoV-2 (PCR) Blood Type A Positive Antibody Screen Negative Crossmatch See Detail 09/28/21 22:39 WBC RBC Hgb Hct MCV MCH MCHC RDW Plt Count Neut % (Auto) Lymph % (Auto) [place] % (Auto) Eos % (Auto) Baso % (Auto) Neut # (Auto) Lymph # (Auto) [place] # (Auto) Eos # (Auto) Baso # (Auto) Platelet Estimate RBC Morphology Sodium Potassium Chloride Carbon Dioxide BUN Creatinine Estimated GFR BUN/Creatinine Ratio Glucose Calcium Total Bilirubin AST ALT Alkaline Phosphatase Total Creatine Kinase CK-MB (CK-2) CK-MB (CK-2) Rel Index Troponin I Total Protein Albumin Globulin Albumin/Globulin Ratio Lipase Urine Color Urine Appearance Urine pH Ur Specific [place] Urine Protein Urine Glucose (UA) Urine Ketones Urine Occult Blood Urine Nitrate Urine Bilirubin Urine Urobilinogen Ur Leukocyte Esterase Urine RBC Urine WBC Ur Squamous Epith Cells Urine Bacteria Ur Culture Indicated? SARS-CoV-2 (PCR) Negative Blood Type Antibody Screen Crossmatch Assessment & Plan Assessment & Plan narrative: GI bleed. Probably lower given bright red blood which has been going on for some time which is somewhat concerning but no other symptoms. Doubt infection. Surgeons consulted. Does not appear to be emergently surgical. Will need evaluation. No previous colonoscopy. At this point appears to be stable. Acute blood loss anemia. Secondary to GI bleed. Patient did have a significant drop in the emergency room evaluation whether that is hydration or not it is a little unclear. But at this point if she continues to change at this rate she will be in need of transfusion at this point will give 2 units of packed red blood cells with a concern that she is actively bleeding at a rate which will require at by tomorrow. Will follow closely and proceed from there. Right ear pain decreased hearing. I looked at it I can not really tell may have had a perforation will have to have outpatient ENT evaluation History of nose bleeds. Will currently not bleeding will refer to ENT for possible cauterization. Anxiety. Will continue usual medicine Insomnia. Will continue Ambien. DVT prophylaxis. Patient with active bleeding will hold prophylaxis medically and due external compression. GI prophylaxis will place on PPI just in case but suspect lower bleed Disposition. Patient will be here until we fully decide she stable for bleeding and has had lower colon evaluation. Discussed with patient. Greater than 30 minute spent with patient and orders nursing Time Spent With Patient Critical Care time: I spent a total of [] minutes of critical care time on this patient's care today; this time is exclusive of procedural time. Quality VTE Deep Vein Thrombosis/Pulmonary Embolism Present on Admission: No
[2021-09-29] VITALS (14 sets, daily range): BP systolic 140–186; BP diastolic 76–117; PULSE 75–91; RESP 16–20; TEMP 36.2–36.8; O2SAT 94–98
[2021-09-29] MEDS: SODIUM CHLORIDE 0.9% 1,000 ML 100 ML IV ×2 (00:27→19:50)
[2021-09-29] MEDS: ZOLPIDEM 5 MG TABLET 10 MG PO ×2 (00:30→22:01)
[2021-09-29] MEDS: CITALOPRAM 10 MG TABLET PO (00:44)
--- NOTE | 2021-09-29 08:25 | PM.PN.1 ---
Subjective Subjective Date Patient Seen: 09/29/21 Time Patient Seen: 08:25 Interval history: Patient seen in follow-up of GI bleed Patient overall feeling well this morning. No chest pain. No shortness of breath. No abdominal pain. Had 1 bowel movement with no blood. Still can not hear in her right ear Exam Vital Signs (past 8 hours): - 09/29/21 01:20 09/29/21 03:02 09/29/21 01:45 Temperature 98.3 F 98.2 F Pulse Rate 77 79 86 Respiratory Rate 20 18 18 Blood Pressure 165/77 H 140/89 150/86 H Pulse Oximetry 98 Oxygen Flow Rate 2 09/29/21 03:38 09/29/21 04:07 09/29/21 04:39 Temperature 98.3 F 97.3 F L 97.4 F L Pulse Rate 79 78 75 Respiratory Rate 18 17 18 Blood Pressure 140/89 140/82 149/76 H Pulse Oximetry Oxygen Flow Rate 09/29/21 06:59 Temperature 97.7 F Pulse Rate 78 Respiratory Rate 16 Blood Pressure 156/97 H Pulse Oximetry Oxygen Flow Rate Oxygen Delivery Method Room Air,Nasal Cannula Oxygen Flow Rate 2 Narrative Exam Narrative: Alert female lying in bed much less fatigued in appearance Lungs are clear heart regular rate and rhythm. Abdomen is soft positive bowel sounds nontender Objective Labs Result Diagrams: 09/28/21 20:04 09/28/21 20:04 Labs: Laboratory Results - last 24 hr 09/28/21 09/28/21 09/28/21 15:27 16:02 16:59 WBC 8.1 RBC 3.27 L Hgb 9.1 L Hct 27.1 L MCV 83.0 MCH 28.0 MCHC 33.7 RDW 15.1 H Plt Count TNP Neut % (Auto) 64.4 Lymph % (Auto) 30.9 [place] % (Auto) 3.8 Eos % (Auto) 0.4 L Baso % (Auto) 0.5 Neut # (Auto) 5200 Lymph # (Auto) 2500 [place] # (Auto) 300 Eos # (Auto) 0 Baso # (Auto) 0 Platelet Estimate Adequate on smear RBC Morphology Normal morphology Sodium TNP Potassium TNP Chloride TNP Carbon Dioxide TNP BUN 14 Creatinine 0.93 Estimated GFR > 60 BUN/Creatinine Ratio 15.1 Glucose 102 H Calcium 7.7 L Total Bilirubin TNP AST 91 H ALT 28 Alkaline Phosphatase TNP Total Creatine Kinase 62 CK-MB (CK-2) TNP CK-MB (CK-2) Rel Index TNP Troponin I < 0.024 Total Protein 9.6 H Albumin 3.4 L Globulin 6.2 H Albumin/Globulin Ratio 0.5 L Lipase 127 Urine Color Yellow Urine Appearance Clear Urine pH 6.0 Ur Specific [place] <=1.005 Urine Protein Negative Urine Glucose (UA) Negative Urine Ketones Negative Urine Occult Blood Trace-lysed Urine Nitrate Negative Urine Bilirubin Negative Urine Urobilinogen 0.2 Ur Leukocyte Esterase Negative Urine RBC None seen Urine WBC None seen Ur Squamous Epith Cells 1-5 /hpf Urine Bacteria None seen Ur Culture Indicated? Cult not indicated SARS-CoV-2 (PCR) Blood Type Antibody Screen Crossmatch 09/28/21 09/28/21 09/28/21 20:04 20:04 21:35 WBC 6.8 RBC 2.74 L Hgb 7.9 L Hct 22.6 L MCV 82.4 MCH 28.9 MCHC 35.1 RDW 14.9 H Plt Count 239 Neut % (Auto) 50.0 Lymph % (Auto) 44.7 H [place] % (Auto) 4.9 Eos % (Auto) 0.2 L Baso % (Auto) 0.2 Neut # (Auto) 3400 Lymph # (Auto) 3000 [place] # (Auto) 300 Eos # (Auto) 0 Baso # (Auto) 0 Platelet Estimate RBC Morphology Sodium 138 Potassium 4.1 Chloride 107 Carbon Dioxide 31 BUN 15 Creatinine 1.17 H Estimated GFR 54 L BUN/Creatinine Ratio 12.8 Glucose 122 H Calcium 10.4 H Total Bilirubin AST ALT Alkaline Phosphatase Total Creatine Kinase CK-MB (CK-2) CK-MB (CK-2) Rel Index Troponin I Total Protein Albumin Globulin Albumin/Globulin Ratio Lipase Urine Color Urine Appearance Urine pH Ur Specific [place] Urine Protein Urine Glucose (UA) Urine Ketones Urine Occult Blood Urine Nitrate Urine Bilirubin Urine Urobilinogen Ur Leukocyte Esterase Urine RBC Urine WBC Ur Squamous Epith Cells Urine Bacteria Ur Culture Indicated? SARS-CoV-2 (PCR) Blood Type A Positive Antibody Screen Negative Crossmatch See Detail 09/28/21 22:39 WBC RBC Hgb Hct MCV MCH MCHC RDW Plt Count Neut % (Auto) Lymph % (Auto) [place] % (Auto) Eos % (Auto) Baso % (Auto) Neut # (Auto) Lymph # (Auto) [place] # (Auto) Eos # (Auto) Baso # (Auto) Platelet Estimate RBC Morphology Sodium Potassium Chloride Carbon Dioxide BUN Creatinine Estimated GFR BUN/Creatinine Ratio Glucose Calcium Total Bilirubin AST ALT Alkaline Phosphatase Total Creatine Kinase CK-MB (CK-2) CK-MB (CK-2) Rel Index Troponin I Total Protein Albumin Globulin Albumin/Globulin Ratio Lipase Urine Color Urine Appearance Urine pH Ur Specific [place] Urine Protein Urine Glucose (UA) Urine Ketones Urine Occult Blood Urine Nitrate Urine Bilirubin Urine Urobilinogen Ur Leukocyte Esterase Urine RBC Urine WBC Ur Squamous Epith Cells Urine Bacteria Ur Culture Indicated? SARS-CoV-2 (PCR) Negative Blood Type Antibody Screen Crossmatch [facility] Medical History Anxiety Surgical History Status post surgery (02/03/10) Status post surgery (12/02/12) Social History household members: spouse Smoking Status: Never smoker alcohol intake: former Assessment & Plan Assessment & Plan narrative: GI bleed. Still feel this probably is lower secondary to bright red blood. But is on PPI. Currently appears not to be bleeding but well to see how things go. Awaiting surgical consult. Hopefully we will to do scope see how she is doing and what is the cause. Otherwise appears to be stable. No change at this time otherwise. Acute blood loss anemia. GI source. Appears to be stable at this time. Given blood last night. Will follow up hematocrit follow from there. Recheck a.m.. Right ear pain with decreased hearing. Still an issue will need ENT consult as outpatient. Elevated blood pressure without history of hypertension. May need to consider treatment watch to see what happens. Certainly improved today if continues to improve no further treatment will have to see what happens over the next 24 hours. May have been stress reaction. History of nose bleeds. Stable. Anxiety. Continue usual meds Insomnia. Stable. DVT prophylaxis currently we use external devices due to bleed. GI on prophylaxis on PPI. Time Spent With Patient Critical Care time: I spent a total of [] minutes of critical care time on this patient's care today; this time is exclusive of procedural time. Quality VTE Deep Vein Thrombosis/Pulmonary Embolism Present on Admission: No
[2021-09-29] MEDS: PANTOPRAZOLE 40 MG VIAL IV ×2 (08:44→21:10)
[2021-09-29 09:19] LABS: Add Manual Diff / Slide Review YES; Hematocrit 28.6 % (36-46); Hemoglobin 9.8 g/dL (12.0-16.0); Mean Corpuscular HGB Conc 34.4 % (30-36); Mean Corpuscular Hemoglobin 28.3 PG (26-34); Mean Corpuscular Volume 82.4 fL (80-100); Platelet Count 247 X10^3/uL (150-400); Red Blood Cell Count 3.47 X10^6/uL (4.0-5.2); Red Cell Distribution Width 15.3 % (11.6-14.8); White Blood Cell Count 6.1 X10^3/uL (4.5-11.0)
[2021-09-29 10:34] LABS: Neutrophils Absolute Manual 2623 /uL (3000-5900); RBC Morphology Normal Morphology; Total Cells Counted 100
--- NOTE | 2021-09-29 12:59 | CM.DANOTE ---
DCP: Case received, EMR reviewed and met with patient. Introduced self and role. Was able to obtain information regarding patient's baseline activity level at home prior to hospitalization. DCP assessment completed with information currently available. Patient is a 60 year old female who admitted yesterday evening to the care of the hospitalist team. PCP: Dr. Singh. Payer: confirmed: [facility]. Patient came to the hospital via ambulance secondary to having dizziness. Notes indicate that patient had been walking on the beach with her spouse, and became light headed, had to sit down. EMS had to be contacted since patient was too dizzy to walk. Notes indicate that patient has had recent diagnosis of parainfluenza and bronchitis. Patient holds diagnosis of GI bleed, acute blood loss anemia. She was given 2 units of blood. She may be having EGD today. She also has had some difficulty with hearing. Met with patient. She is alert and oriented, she was on the phone prior to this DC Wet End Helper entering room. She is having some difficulty with hearing, she thinks it's from when she had bronchitis. Confirmed that she resides here in [place] with spouse, Leo. 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 P: DCP to continue to follow for any needs. Patient should be able to go home when she is deemed medically stable. Amira Haile RN/Rod Piler Discharge Planning/Care Management CM Discharge Assessment Start: 09/29/21 12:58 Freq: Status: Active Protocol: Document 09/29/21 12:58 (Rec: 09/29/21 12:59 [id number]) Discharge Planning Assessment Assigned Interior Assemblies Developer Prover Amira Haile RN/Rod Piler Advance Directives? Yes Advance Directives on File No History Provided By Patient,Medical Record Prior Living Arrangements House Household Members spouse Type of transporation used prior to Drives own vehicle admit Independent with ADL's Yes Is patient alert and oriented? Yes Caregiver for Another No Barriers to Discharge No Discharge Plan Home Transportation Arrangement Spouse Referrals Initiated None needed Whiteboard Updated in Patient Room with Yes name and ext. # of Interior Assemblies Developer Prover Review Status In Process Next Review Type Continued Stay Review
[2021-09-29] MEDS: PEG3350/SOD SULF,BICARB,CL/KCL 4,000 ML SOLUTION 4000 ML PO (15:28)
--- NOTE | 2021-09-29 16:56 | PM.CALLCOV.1 ---
Call Coverage Note Note Date of Patient Contact: 09/29/21 Narrative of Care Provided: 60-year-old woman hemodynamically stable bright red blood per rectum initial hematocrit 27. Colonoscopy tomorrow 09/30 Prep today NPO after midnight
[2021-09-29] MEDS: CITALOPRAM 10 MG TABLET 30 MG PO (20:10)
[2021-09-29] MEDS: LABETALOL 20 MG/4 ML SYRINGE 5 MG IV (22:38)
[2021-09-29] MEDS: ACETAMINOPHEN 325 MG TABLET 650 MG PO (22:44)
[2021-09-30] VITALS (19 sets, daily range): BP systolic 104–185; BP diastolic 60–114; PULSE 73–84; RESP 16–25; TEMP 35.9–37.1; O2SAT 94–99
--- NOTE | 2021-09-30 | PATH_ITS ---
[facility] Accession Number: [id number] . 01 Material submitted: . body - RANDOM MUCOSA . 01 Diagnosis: Random Colon, Biopsies: Colonic mucosa with no diagnostic abnormality. Negative for active, chronic, and microscopic colitis. Negative for dysplasia and malignancy. . MRV 10/04/2021 1154 Local . 01 Electronically signed: . Rebeca Ly MD, Pathologist NPI- [id number] . 01 Gross description: . RANDOM MUCOSA: Received in formalin is 1 fragment of cedeño soft tissue measuring 0.3 x 0.2 x 0.2 cm. Tissue is inked. Specimen is submitted in its entirety in 1 cassette. /CPE 10/03/2021 0454 Local . 01 Pathologist provided ICD-10: R19.7 . 01 CPT . 452831 Specimen Comment: A courtesy copy of this report has been sent to [phone] Performed at: 01 [facility] Cyt[facility] [address] [place] [address], [place], [place] [id number] MD Jessee Sheth MD Phone: [phone]
[2021-09-30] MEDS: SODIUM CHLORIDE 0.9% 1,000 ML 100 ML IV ×2 (05:57→16:01)
[2021-09-30 07:10] LABS: Add Manual Diff / Slide Review NO; Basophils Absolute Auto 0 /uL (0-100); Basophils Percent Auto 0.2 % (0-2); Eosinophils Absolute Auto 100 /uL (0-450); Hematocrit 29.1 % (36-46); Lymphocytes Absolute Auto 1900 /uL (1100-4500); Lymphocytes Percent Auto 58.1 % (25-40); Mean Corpuscular HGB Conc 22.4 % (30-36); Mean Corpuscular Hemoglobin 18.5 PG (26-34); Mean Corpuscular Volume 82.8 fL (80-100); Monocytes Absolute Auto 200 /uL (0-900); Monocytes Percent Auto 6.1 % (3-14); Neutrophils Absolute Auto 1100 /uL (1500-7000); Neutrophils Percent Auto 33.6 % (50-75); Platelet Count 225 X10^3/uL (150-400); Red Blood Cell Count 3.51 X10^6/uL (4.0-5.2); Red Cell Distribution Width 15.2 % (11.6-14.8); White Blood Cell Count 3.2 X10^3/uL (4.5-11.0)
[2021-09-30 07:39] LABS: Hemoglobin 6.5 g/dL (12.0-16.0)
[2021-09-30] MEDS: PANTOPRAZOLE 40 MG VIAL IV ×2 (09:40→20:46)
--- NOTE | 2021-09-30 11:21 | PM.PN.1 ---
Subjective Subjective Date Patient Seen: 09/30/21 Time Patient Seen: 09:45 Interval history: The pt reports feeling weak this morning, but denies any other specific complaints. She denies any lightheadedness, chest pain, SOB, abdominal pain. She tolerated the clean out for colonoscopy overnight. She initially had blood in her stool, but by the end it was clear. Exam Vital Signs (past 8 hours): - 09/30/21 06:00 09/30/21 08:00 09/30/21 08:32 Temperature 97.5 F L 97.1 F L 96.7 F L Pulse Rate 84 73 77 Respiratory Rate 16 16 18 Blood Pressure 177/106 H 141/94 H 179/102 H Pulse Oximetry 95 97 Oxygen Delivery Method Oxygen Flow Rate 0 0 09/30/21 09:34 09/30/21 08:48 09/30/21 10:00 Temperature 97.2 F L 97.2 F L Pulse Rate 77 80 Respiratory Rate 18 17 Blood Pressure 185/96 H 179/106 H Pulse Oximetry 94 97 Oxygen Delivery Method Room Air Oxygen Flow Rate 0 09/30/21 09:40 09/30/21 10:58 Temperature 98.7 F Pulse Rate 79 Respiratory Rate 18 Blood Pressure 175/114 H Pulse Oximetry 97 Oxygen Delivery Method Room Air Oxygen Flow Rate Oxygen Delivery Method Room Air Oxygen Flow Rate 0 Narrative Exam Narrative: Gen: NAD, laying in bed, tearful due to discomfort from IV CV: RRR, no murmurs Resp: clear to auscultation bilaterally Abd: soft, nontender, nondistended, normoactive bowel sounds Ext: no edema Objective Labs Result Diagrams: 09/30/21 06:25 09/29/21 15:40 Labs: Laboratory Results - last 24 hr 09/28/21 09/29/21 09/30/21 21:35 15:40 06:25 WBC 3.2 L RBC 3.51 L Hgb 6.5 L* Hct 29.1 L MCV 82.8 MCH 18.5 L MCHC 22.4 L D RDW 15.2 H Plt Count 225 Neut % (Auto) 33.6 L Lymph % (Auto) 58.1 H [place] % (Auto) 6.1 Eos % (Auto) 2.0 Baso % (Auto) 0.2 Neut # (Auto) 1100 L Lymph # (Auto) 1900 [place] # (Auto) 200 Eos # (Auto) 100 Baso # (Auto) 0 Sodium Cancelled Potassium Cancelled Chloride Cancelled Carbon Dioxide Cancelled BUN Cancelled Creatinine Cancelled Estimated GFR Cancelled BUN/Creatinine Ratio Cancelled Glucose Cancelled Calcium Cancelled Total Bilirubin Cancelled AST Cancelled ALT Cancelled Alkaline Phosphatase Cancelled Total Protein Cancelled Albumin Cancelled Globulin Cancelled Albumin/Globulin Ratio Cancelled Blood Type A Positive Antibody Screen Negative Crossmatch See Detail [facility] Medical History Anxiety Surgical History Status post surgery (02/03/10) Status post surgery (12/02/12) Social History household members: spouse Smoking Status: Never smoker alcohol intake: former Assessment & Plan Assessment & Plan narrative: Pt is a 60yo woman with anxiety and insomnia who presented with bright red bleeding per rectum, presumed lower GI bleed. 1) Lower GI bleed: s/p 2 units PRBCs yesterday. Vitals remain stable. Further drop in H/H overnight, however no additional bleeding. - Surgery consulted, appreciate care - Plan for colonoscopy this morning - 2 units PRBCs this morning - Continue Protonix - Continue to trend H/H 2) Acute blood loss anemia: From GI bleed. - As above, transfuse again this morning and continue to trend 3) Right ear pain, decreased hearing - ENT consult as outpatient 4) Elevated blood pressure without hx of HTN: BP is quite elevated persistently. S/P single dose IV Labetalol last night with minimal response - 10mg IV Labetalol this morning - IV Hydralazine PRN - Will plan to start PO medications if BP remains elevated after colonoscopy 5) Anxiety: - Continue Citalopram 6) Insomnia: - Continue Ambien DVT ppx: SCDs due to bleeding risk FEN: NPO pending colonoscopy Code: Full Dispo: Pending colonoscopy, stabilization of H/H. Possibly home tomorrow. Time Spent With Patient Critical Care time: I spent a total of [] minutes of critical care time on this patient's care today; this time is exclusive of procedural time. Quality VTE Deep Vein Thrombosis/Pulmonary Embolism Present on Admission: No
[2021-09-30] MEDS: LABETALOL 20 MG/4 ML SYRINGE 10 MG IV (12:02)
--- NOTE | 2021-09-30 12:19 | P.CONS_ITS ---
History of Present Illness Consult details Date Patient Seen: 09/30/21 Time Patient Seen: 12:19 Chief complaint: Weakness Reason for consult: GI bleed Narrative: Patient has had 1 year of bright red blood per rectum. No evidence of colonosc opy in that time frame. Is not on any anticoagulation. Came in profoundly anemic with stable vital signs consistent with chronic anemia. Meds Home Medications and Allergies Home Medications Medication Instructions Recorded Confirmed Type Citalopram Hydrobromide 30 mg PO BEDTIME depression ##0 02/03/10 09/29/21 History (Citalopram HBr) Zolpidem Tartrate (Ambien) 10 mg PO PRN PRN Insomnia ##0 02/03/10 09/29/21 History hydrocodone 5 mg-acetaminophen 325 1 tab PO Q6H PRN pain #14 tabs 09/16/20 09/30/21 Rx mg tablet Allergies Allergy/AdvReac Type Severity Reaction Status Date / Time No Known Drug Allergies Allergy Verified 09/24/21 14:04 Exam Vital Signs (past 8 hours): - 09/30/21 06:00 09/30/21 08:00 09/30/21 08:32 Temperature 97.5 F L 97.1 F L 96.7 F L Pulse Rate 84 73 77 Respiratory Rate 16 16 18 Blood Pressure 177/106 H 141/94 H 179/102 H Pulse Oximetry 95 97 Oxygen Delivery Method Oxygen Flow Rate 0 0 09/30/21 09:34 09/30/21 08:48 09/30/21 10:00 Temperature 97.2 F L 97.2 F L Pulse Rate 77 80 Respiratory Rate 18 17 Blood Pressure 185/96 H 179/106 H Pulse Oximetry 94 97 Oxygen Delivery Method Room Air Oxygen Flow Rate 0 09/30/21 09:40 09/30/21 10:58 Temperature 98.7 F Pulse Rate 79 Respiratory Rate 18 Blood Pressure 175/114 H Pulse Oximetry 97 Oxygen Delivery Method Room Air Oxygen Flow Rate Oxygen Delivery Method Room Air Oxygen Flow Rate 0 Const General: cooperative Nutritional Appearance: average body habitus HENMT Head: normocephalic and atraumatic Ears: hearing grossly normal bilaterally Eyes General: appearance normal, both eyes and all related structures Neck Neck: trachea midline Resp Effort & Inspection: normal respiratory effort and able to speak in complete sentences Cardio Rate: regular rate Rhythm: regular rhythm GI Inspection: normal to inspection Palpation: soft Skin General: no rashes or lesions noted Neuro General: patient alert, patient awake and patient oriented x3 Extrem General: normal to inspection Psych Appearance: grossly normal Mental Status: mental status grossly normal Attitude: cooperative Judgment: judgment good Objective Labs Result Diagrams: 09/30/21 06:25 09/29/21 15:40 Labs: Laboratory Results - last 24 hr 09/28/21 09/29/21 09/30/21 21:35 15:40 06:25 WBC 3.2 L RBC 3.51 L Hgb 6.5 L* Hct 29.1 L MCV 82.8 MCH 18.5 L MCHC 22.4 L D RDW 15.2 H Plt Count 225 Neut % (Auto) 33.6 L Lymph % (Auto) 58.1 H [place] % (Auto) 6.1 Eos % (Auto) 2.0 Baso % (Auto) 0.2 Neut # (Auto) 1100 L Lymph # (Auto) 1900 [place] # (Auto) 200 Eos # (Auto) 100 Baso # (Auto) 0 Sodium Cancelled Potassium Cancelled Chloride Cancelled Carbon Dioxide Cancelled BUN Cancelled Creatinine Cancelled Estimated GFR Cancelled BUN/Creatinine Ratio Cancelled Glucose Cancelled Calcium Cancelled Total Bilirubin Cancelled AST Cancelled ALT Cancelled Alkaline Phosphatase Cancelled Total Protein Cancelled Albumin Cancelled Globulin Cancelled Albumin/Globulin Ratio Cancelled Blood Type A Positive Antibody Screen Negative Crossmatch See Detail [facility] Medical History Anxiety Surgical History Status post surgery (02/03/10) Status post surgery (12/02/12) Social History household members: spouse Tobacco & Substance Use Smoking Status: Never smoker alcohol intake: former Assessment & Plan Assessment & Plan narrative: GI bleed Colonoscopy with anesthesia COVID-19 COVID-19 status: Negative Time Spent With Patient Critical Care time: I spent a total of [] minutes of critical care time on this patient's care today; this time is exclusive of procedural time.
[2021-09-30] MEDS: LACTATED RINGERS 1,000 ML 42 ML IV (12:50)
--- NOTE | 2021-09-30 12:56 | PM.OP.COLON ---
Operative Date/Time/Diagnoses Date of procedure: 09/30/21 Time of procedure: 12:56 Pre-op diagnosis: gi bleed Post-op diagnosis: same Procedure & Clinicians Study performed: Colonoscopy with anesthesia Same procedure as scheduled: Yes Indications: Anemia with history of bright red blood per rectum Surgeon: Karla Kimball Procedure Notes SCOAP/Timeout: Done Procedure in detail: Preop diagnosis:. Anemia Postop diagnosis: Same Operative procedure: Colonoscopy with anesthesia, cold forceps biopsies of mucosa Surgeon: Lavern Kimball MD Findings: No diverticuli. No polyps. No masses. Hemorrhoids are grade 2 no active bleeding. There is loss of architecture of the lining of the colon and possible mild inflammation. Random biopsies the mucosa was taken to evaluate for inflammatory bowel disease Procedure: Patient placed in lateral position. Rectal exam performed showing normal tone no masses. Colonoscope inserted into the rectum and advanced to ileocecal valve with minimal difficulty. Pressure was applied to the abdomen for brief period of time in order to facilitate this scoping of the right colon. Insufflation extraction of the scope including retroflex in the rectum had the above findings. Random mucosal biopsies were taken. Impression: No diverticulosis, no polyps, no masses seen. Loss of architecture of the mucosal surface but no extreme inflammation. Random mucosal biopsies taken Plan: No evidence of hemorrhoidal bleeding at the time of colonoscopy. Hemorrhoids are grade 2. No other evidence of bleeding. Cannot rule out inflammatory bowel disease. Continue to observe for active bleeding at this point. Back to a general diet Specimen(s): other (Random mucosal biopsies of colon) Complications: none Impression: No bleeding source found, cannot rule out inflammatory bowel disease however there was no overt inflammatory process at the time Post-procedure Recommendations: Colonoscopy in 10 years Plan for aftercare: Back to acute care for monitoring Follow up: as needed Disposition: PACU
[2021-09-30 15:23] LABS: Hematocrit 31.1 % (36-46); Hemoglobin 8.6 g/dL (12.0-16.0)
[2021-09-30] MEDS: ACETAMINOPHEN 325 MG TABLET 650 MG PO (15:59)
--- NOTE | 2021-09-30 18:07 | PC.NURSE ---
ORIGINAL ORDER TO TRANSFUSE 2 UNITS OR PRBCS,1 UNIT TRANSFUSED THEN PATIENT WENT TO SURGERY,BACK FROM SURGERY NEW HH DRAWN , DR BREEN GAVE ORDER NOT GIVE 2ND UNIT.
[2021-09-30] MEDS: CITALOPRAM 10 MG TABLET 30 MG PO (20:45)
[2021-09-30] MEDS: ZOLPIDEM 5 MG TABLET 10 MG PO (20:48)
[2021-10-01] VITALS (7 sets, daily range): BP systolic 129–173; BP diastolic 84–110; PULSE 74–92; RESP 16–18; TEMP 35.6–36.2; O2SAT 95–98
[2021-10-01] MEDS: lisinopriL 5 MG TABLET PO ×2 (09:32→11:09)
[2021-10-01] MEDS: PANTOPRAZOLE 40 MG VIAL IV (09:32)
[2021-10-01] MEDS: ACETAMINOPHEN 325 MG TABLET 650 MG PO (09:33)
--- NOTE | 2021-10-01 10:58 | PM.EVENT ---
Event Note Date Patient Seen: 10/01/21 Time Patient Seen: 10:59 Event Note (Rapid Response, Code, or fall): I recommend a CTscan with po contrast only since IV is scarce. Her colonoscopy was not impressive and symptoms did not point toward stomach. I would continue PPI once daily with consideration of EGD on Saturday if CT is normal. I am still here through Saturday.
--- NOTE | 2021-10-01 11:18 | PC.NURSE ---
Addendum entered by Annette Pacheco R.N. 10/01/21 17:42: ct done , labs done ,with orders from md to dc pt home-given oral and written instructions. Original Note: tylenol given this am for c/o h/a and back pain now resolved. dr. randle here to see pt. now dose of lisinipril 5mg po given for bp. awaiting labs and will monitor bp for possible dc home today. no s/sx of active bleeding. at bs, call light within reach.
[2021-10-01 11:34] LABS: BUN Creatinine Ratio 7.3 (6-22); Blood Urea Nitrogen 6 mg/dL (7-17); Calcium 7.9 mg/dL (8.4-10.2); Estimated Glomerular Filt Rate > 60 mL/min (>60); Glucose 111 mg/dL (70-100)
[2021-10-01 11:35] LABS: HEMOLYSIS < 15 (0-50)
[2021-10-01 12:01] LABS: Add Manual Diff / Slide Review NO; Basophils Absolute Auto 0 /uL (0-100); Basophils Percent Auto 0.5 % (0-2); Eosinophils Absolute Auto 100 /uL (0-450); Eosinophils Percent Auto 1.9 % (2-4); Hematocrit 31.6 % (36-46); Hemoglobin 10.9 g/dL (12.0-16.0); Lymphocytes Absolute Auto 3200 /uL (1100-4500); Lymphocytes Percent Auto 43.7 % (25-40); Mean Corpuscular HGB Conc 34.6 % (30-36); Mean Corpuscular Hemoglobin 28.8 PG (26-34); Mean Corpuscular Volume 83.2 fL (80-100); Monocytes Absolute Auto 400 /uL (0-900); Monocytes Percent Auto 5.5 % (3-14); Neutrophils Absolute Auto 3500 /uL (1500-7000); Neutrophils Percent Auto 48.4 % (50-75); Red Cell Distribution Width 15.8 % (11.6-14.8); White Blood Cell Count 7.3 X10^3/uL (4.5-11.0)
[2021-10-01 12:09] LABS: Cholesterol 114 mg/dL (140-199); HDL Cholesterol 31 mg/dL (40-60); LDL Cholesterol Calculated 70 mg/dL (<100); Triglycerides 65 mg/dL (35-150)
--- NOTE | 2021-10-01 13:31 | PM.DS.1 ---
History of Present Illness History of Present Illness Date Patient Seen: 10/01/21 Time Patient Seen: 10:00 Chief complaint: Weakness Narrative: Patient is a 60-year-old female patient of Dr. Harden'melo who presents with acute onset of weakness.? Patient basically got Jell-O legs and then could not get up.? [place] Could not get up for about an hour and a half eventually called 911 is brought in.? She has had no chest pain no shortness of breath no other changes.? Does have a history of asthma but has not felt as if anything was significant.? Patient but took notes that the last 2 weeks she maybe has been feeling a little weaker.? She has been having bright red blood per rectum for the last year.? Intermittent thought it was more constipation related.? But has been pretty more significant over the last 2 weeks maybe more.? Maybe more than a month.? Not with every bowel movement with most.? Has denied any black bowel movements.? She has had no pain.? No abdominal pain.? No fevers no chills no night sweats.? No weight loss.? Has otherwise been feeling well.? No other changes.? She has noted she also has some bloody noses work is been persistent.? Also has had some ear pain on the right.? Was told she had a perforation. Discharge Providers Provider Date of admission: 09/28/21 22:37 Discharge Date: 10/01/21 Primary care physician: Huyen Harden MD Consults: 09/28/21 22:39 Consult to General Surgery Stat Comment: Consulting Provider: Leo Michelle Reason for consultation: gi bleed Has provider been notified: Yes 09/28/21 23:03 Consult to General Surgery Routine Comment: Consulting Provider: Leo Michelle Reason for consultation: gi bleed Has provider been notified: Yes Discharge provider: Alejandra Salgado MD Summary Hospital Course Discharge Diagnosis: GI bleed Acute blood loss anemia Hypertension Anxiety Insomnia Decreased hearing right side Hospital Course: The pt presented with weakness, found to have significant anemia in the setting of bright red blood per rectum. She remained hemodynamically stable. She was transfused a total of 3 units during her hospitalization. Her H/H was stable at discharge. She was initiated on a PPI. Colonoscopy was completed that was normal other than some loss of architecture. Biopsies were taken to confirm no IBD, however relatively low suspicion of this from surgery. Abdominal CT was completed that also was reassuring. The source of her bleeding unfortunately remains unclear. Surgery recommends consideration for outpatient EGD, although would be less likely upper GI bleed due to being bright red. The pts blood pressure was also noted to be quite elevated during her hospitalization. She required IV Metoprolol when NPO prior to colonoscopy, and then was initiated on 10mg PO Lisinopril with good response. Recommended she start checking her BPs at home, and bring her log to her appt with her PCP. Recommend the pt f/u within a week. Exam Vital Signs (past 8 hours): - 10/01/21 09:00 10/01/21 09:04 10/01/21 09:32 Temperature 96.1 F L Pulse Rate 92 H Respiratory Rate 18 Blood Pressure 173/103 H 173/103 H Pulse Oximetry 96 96 Oxygen Delivery Method Room Air Oxygen Flow Rate 0 10/01/21 12:37 Temperature 97.0 F L Pulse Rate 76 Respiratory Rate 17 Blood Pressure 129/84 Pulse Oximetry 95 Oxygen Delivery Method Oxygen Flow Rate 0 Oxygen Delivery Method Room Air Oxygen Flow Rate 0 Narrative Exam Narrative: Gen:? NAD, laying in bed, appears well CV:? RRR, no murmurs Resp:? clear to auscultation bilaterally Abd:? soft, nontender, nondistended, normoactive bowel sounds Ext:? no edema Objective Labs Result Diagrams: 10/01/21 05:35 10/01/21 05:35 Labs: Laboratory Results - last 24 hr 09/30/21 10/01/21 10/01/21 14:48 05:35 05:35 WBC 7.3 D RBC 3.80 L Hgb 8.6 L 10.9 L Hct 31.1 L 31.6 L MCV 83.2 MCH 28.8 MCHC 34.6 D RDW 15.8 H Plt Count TNP Neut % (Auto) 48.4 L Lymph % (Auto) 43.7 H [place] % (Auto) 5.5 Eos % (Auto) 1.9 L Baso % (Auto) 0.5 Neut # (Auto) 3500 Lymph # (Auto) 3200 [place] # (Auto) 400 Eos # (Auto) 100 Baso # (Auto) 0 Sodium TNP Potassium TNP Chloride TNP Carbon Dioxide TNP BUN 6 L Creatinine 0.82 Estimated GFR > 60 BUN/Creatinine Ratio 7.3 Glucose 111 H Calcium 7.9 L Triglycerides Cholesterol LDL Cholesterol, Calc HDL Cholesterol 10/01/21 11:58 WBC RBC Hgb Hct MCV MCH MCHC RDW Plt Count Neut % (Auto) Lymph % (Auto) [place] % (Auto) Eos % (Auto) Baso % (Auto) Neut # (Auto) Lymph # (Auto) [place] # (Auto) Eos # (Auto) Baso # (Auto) Sodium Potassium Chloride Carbon Dioxide BUN Creatinine Estimated GFR BUN/Creatinine Ratio Glucose Calcium Triglycerides 65 Cholesterol 114 L LDL Cholesterol, Calc 70 HDL Cholesterol 31 L PFSH Medical History (Updated 10/01/21 @ 00:00 by ) Anxiety Surgical History Status post surgery (02/03/10) Status post surgery (12/02/12) Social History household members: spouse Smoking Status: Never smoker alcohol intake: former Discharge Plan Discharge Plan Patient Disposition: Home Discharge orders & Medications Prescriptions: New lisinopril 10 mg tablet 10 mg PO DAILY Qty: 30 0RF Continued Citalopram Hydrobromide (Citalopram HBr) 30 mg tablet 30 mg PO BEDTIME Qty: 0 Zolpidem Tartrate (Ambien) 10 mg tablet 10 mg PO PRN MDD 10 mg PRN (Reason: Insomnia) Qty: 0 Discontinued hydrocodone-acetaminophen 5-325 mg tablet 1 tab PO Q6H PRN (Reason: pain) Qty: 14 0RF Follow up/Referrals: Huyen Harden MD [Primary Care Provider] - 1 Week Diet/Activity/Treatments Diet: Diet as Tolerated and Low-sodium Visit Report/Discharge Packet Visit Report Forms: Patient Portal/API, Stroke Signs & Symptoms Discharge Data Primary Care Provider: Huyen Harden Quality VTE Deep Vein Thrombosis/Pulmonary Embolism Present on Admission: No
--- NOTE | 2021-10-01 13:37 | DI.CT.S_ITS ---
PROCEDURE: CT ABDOMEN PELVIS WO CON INDICATIONS: anemia with possible IBD TECHNIQUE: After the administration of oral contrast, 5 mm thick sections acquired from the diaphragms to the symphysis. 5 mm coronal and sagittal reformats were performed. For radiation dose reduction, the following was used: automated exposure control, adjustment of mA and/or kV according to patient size. COMPARISON: None. FINDINGS: Lower thorax: The lung bases are clear. Heart size normal. No hiatal hernia. Liver: Normal in size and attenuation. No contour deformity present. Biliary system: No calcified cholelithiasis or pericholecystic inflammation. No intra or extrahepatic bile duct dilatation. Pancreas: Unremarkable without mass or inflammation evident. Spleen: The spleen is enlarged at 12.7 cm. No intrinsic mass lesion. Adrenals: Normal morphology and density. Reproductive system: Hysterectomy. Urinary system: Normal renal size and attenuation. No renal calculi, hydronephrosis, or solid mass present. Urinary bladder unremarkable. Gastrointestinal system: The bowel is unremarkable without evidence of bowel obstruction or inflammation. The stomach appears unremarkable. Appendix: No findings to suggest acute appendicitis. Peritoneal spaces: No mesenteric or retroperitoneal adenopathy. No free air. No free fluid. Vasculature: The IVC, aorta and iliac vasculature are unremarkable. Abdominal wall: Abdominal wall intact without evidence of ventral or inguinal hernias. Musculoskeletal: Normal bone mineralization. Degenerative disc disease and arthropathy noted in lower lumbar spine. No acute fractures. Induration or scarring of the lower high text hysterectomy anterior abdominal wall reflect prior mignon seizure IMPRESSION: 1. No acute CT findings in the abdomen and pelvis. No evidence of inflammatory bowel disease. 2. Incidental splenomegaly, 12.7 cm. Approved by: Aubrey Wall M.D. on 10/01/2021 at 14:08
== END 2021-10-01 17:05 | disposition home or self-care (01) | DRG 378 ==
LOC: ED 22:34 → AC 22:39
PROVIDERS: Emergency Medicine; Family Medicine; Surgery; Admitting Provider Family Medicine; Emergency Provider Emergency Medicine; PCP Student in an Organized Health Care Education/Training Program; Referring Provider Emergency Medicine; Visit Provider Family Medicine
PROC: 0DJD8ZZ Inspection of Lower Intestinal Tract, Via Natural or Artificial Opening Endoscopic (ICD-10-PCS; CPT 45378; principal; 2021-09-30 12:00)
DX: K62.5 Hemorrhage of anus and rectum (principal); D62 Acute posthemorrhagic anemia; F41.9 Anxiety disorder, unspecified; G47.00 Insomnia, unspecified; I10 Essential (primary) hypertension; Z20.822 Contact with and (suspected) exposure to COVID-19
CPT/HCPCS: 36415; 36430; 45380; 71045; 74176; 80048; 80053; 80061; 81001; 82550; 83690; 84484; 85007; 85014; 85018; 85025; 86850; 86900; 86901; 87635; 93005; 93010; 94760; 99232; 99238; 99284; C9803; P9016; C9113; J2704; J3010

== ENCOUNTER 2021-10-04 10:31 | Emergency (ER) | payer OTHER, SELFPAY ==
[2021-10-04] VITALS (13 sets, daily range): BP systolic 141–183; BP diastolic 70–91; PULSE 70–83; RESP 20; TEMP 36.4; O2SAT 94–99; BMI 28.8
--- NOTE | 2021-10-04 10:53 | DI.RAD.S_ITS ---
PROCEDURE: XR CHEST 2V INDICATIONS: shortness of breath TECHNIQUE: 2 views of the chest were acquired. COMPARISON: [facility], CR, XR CHEST 1V, 09/28/2021, 15:49. FINDINGS: Surgical changes and devices: None. Lungs and pleura: Increased bronchovascular markings in bilateral hilar region are seen with mild bronchial wall thickening. No focal infiltrate. No pleural effusions or pneumothorax. Mediastinum: Mediastinal contours are normal. Heart size is normal. Bones and chest wall: No suspicious bony abnormalities. Soft tissues appear unremarkable. IMPRESSION: Suggestion of mild reactive airway disease such as bronchitis or asthma. No focal infiltrate, pleural effusion or pneumothorax. Dictated by: Eldon Peter M.D. on 10/04/2021 at 11:53 Approved by: Eldon Peter M.D. on 10/04/2021 at 11:54
[2021-10-04 11:38] LABS: D Dimer 211 ng/mL (<230)
[2021-10-04 11:40] LABS: Lactate (Lactic Acid) 1.6 mmol/L (0.7-2.1)
--- NOTE | 2021-10-04 11:46 | ED.SOB ---
HPI - SOB/Dyspnea General Chief Complaint: Shortness of Breath/Dyspnea Stated Complaint: SOB, weakness Time Seen by Provider: 10/04/21 11:13 Source: patient Mode of arrival: Family Vehicle Limitations: no limitations History of Present Illness HPI Narrative: The patient presents with dyspnea, dyspnea and weakness. She has no URI symptoms, she denies cough, and she has no chest pain. She denies palpitations. She has no fever, or chills. Dyspnea and weakness has now resolved. She was admitted here several days ago with similar symptoms. She was found to have anemia, she required 3 units PRBCs. Was noted that time she had a history of bright red blood per rectum. Colonoscopy was done, there is no evidence of source of bleeding, random biopsies were taken. No pathology is available at this point. She has no abdominal pain. There was a documented GI bleed before she required transfusion. She is having abdominal discomfort at this time. She is unaware of any GI bleeding. The dyspnea she encounter earlier was rather notable. She has no history of heart or lung disease. Related Data Home Medications Medication Instructions Recorded Confirmed Citalopram Hydrobromide 30 mg PO BEDTIME depression ##0 02/03/10 09/29/21 (Citalopram HBr) Zolpidem Tartrate (Ambien) 10 mg PO PRN PRN Insomnia ##0 02/03/10 09/29/21 Previous Rx's Medication Instructions Recorded lisinopril 10 mg tablet 10 mg PO DAILY #30 tabs 10/01/21 Allergies Allergy/AdvReac Type Severity Reaction Status Date / Time No Known Drug Allergies Allergy Verified 10/04/21 10:50 Review of Systems Review of Systems ROS Unobtainable: All systems reviewed & are unremarkable except as noted in HPI and below Constitutional Constitutional: Reports as per HPI ENT Ears, Nose, Mouth, and Throat: Denies vertigo, Reports dizziness, Denies sinus pain, Denies sinus pressure and Denies sore throat Cardiovascular Cardiovascular: Denies chest pain, Denies syncope, Denies rapid heart rate and Reports dyspnea Respiratory Respiratory: Denies chest congestion, Denies cough, Reports dyspnea and Denies wheezing Gastrointestinal Gastrointestinal: Denies abdominal pain, Denies melena, Denies bloating, Denies change in stool character, Denies nausea and Denies vomiting Genitourinary Genitourinary: Denies dysuria Musculoskeletal Musculoskeletal: Denies back pain and Denies myalgias Integumentary/Breasts Skin/Breast: Denies lesions and Denies rash Neurologic Neurologic: Denies confusion, Denies vertigo, Reports dizziness and Denies syncope Psychiatric Psychiatric: Denies confusion Endocrine Endocrine: Denies polyphagia and Denies polydipsia Hematologic/Lymphatic On Anticoagulants: No Allergic/Immunologic Allergic/Immunologic: Denies wheezing Patient History Medical History (Updated 10/04/21 @ 15:58 by Magdiel Rothman MD) Anemia Anxiety GI bleed Surgical History Status post surgery (02/03/10) Status post surgery (12/02/12) Social History household members: spouse Smoking Status: Never smoker alcohol intake: former Smoking Status: Never smoker alcohol intake frequency: other Substance Use Type: does not use Exam Initial Vital Signs Initial Vital Signs: Vital Signs Temperature 97.5 F L 10/04/21 10:50 Pulse Rate 83 10/04/21 10:50 Respiratory Rate 20 10/04/21 10:50 Blood Pressure 141/70 H 10/04/21 10:50 Pulse Oximetry 99 10/04/21 10:50 Oxygen Delivery Method 10/04/21 10:50 Const General: cooperative, healthy appearing and anxious Orientation: Orientation (Normal) [facility] Head: normocephalic and atraumatic Face and sinus: normal facial exam Mouth: oropharynx normal Throat: posterior oropharynx normal Eyes General: Yes appearance normal, both eyes and all related structures Neck Neck: No JVD Chest Chest: normal inspection of the chest Resp Auscultation: clear to auscultation bilaterally Cardio Palpation: normal PMI Rate: regular rate Rhythm: regular rhythm Heart Sounds: S1 normal and S2 normal GI Inspection: normal to inspection, no edema and non-distended Palpation: soft, No guarding and No mass Percussion: normal to percussion Auscultation: normal bowel sounds Back/Spine/Pelvis Back: normal to inspection and No CVA tenderness Skin General: no rashes or lesions noted Neuro General: patient alert, patient awake, patient oriented x3 and no focal motor deficits Extrem General: normal to inspection, full ROM, No no pedal edema and No no calf tenderness Psych Appearance: grossly normal Course Course Course Narrative: Chest x-ray, EKG, and cardiac labs are reassuring. She has been asymptomatic since arrival. H/H is adequate. Clinically she has no suggestion of a GI bleeding. She is referred to her PCM for ongoing evaluation. Orders Ordered: ED Orders 10/04/21 10:53 XR chest 2V Stat EKG-12 Lead Stat Measure peak expiratory flow ONCE RT Consult Eval and Treat Now 10/04/21 11:15 DD [D Dimer] Stat Lactate (Lactic Acid) Stat Trop I [Troponin I] Stat 10/04/21 11:44 Complete Blood Count AUTO DIFF Stat 10/04/21 12:25 Comprehensive Metabolic Panel Stat Vital Signs Vital signs: Vital Signs - 8 hr 10/04/21 10:50 10/04/21 11:02 10/04/21 11:30 Temperature 97.5 F L Pulse Rate 83 80 80 Respiratory Rate 20 Blood Pressure 141/70 H Pulse Oximetry 99 98 94 Oxygen Delivery Method Room Air 10/04/21 12:00 10/04/21 12:30 10/04/21 13:00 Temperature Pulse Rate 77 73 79 Respiratory Rate Blood Pressure Pulse Oximetry 95 95 96 Oxygen Delivery Method 10/04/21 13:30 10/04/21 14:00 Temperature Pulse Rate 73 71 Respiratory Rate Blood Pressure Pulse Oximetry 96 96 Oxygen Delivery Method MDM - SOB/Dyspnea Lab Data Result diagrams: 10/04/21 11:44 10/04/21 12:25 Labs: Lab Results 10/04/21 10/04/21 10/04/21 Range/Units 11:15 11:15 11:15 WBC (4.5-11.0) X10^3/uL RBC (4.0-5.2) X10^6/uL Hgb (12.0-16.0) g/dL Hct (36-46) % MCV (80-100) fL MCH (26-34) PG MCHC (30-36) % RDW (11.6-14.8) % Plt Count (150-400) X10^3/uL Neut % (Auto) Lymph % (Auto) [place] % (Auto) Eos % (Auto) Baso % (Auto) Lymph # (Auto) [place] # (Auto) Baso # (Auto) Total Counted Seg Neutrophils % (38-70) % Lymphocytes % (Manual) (25-45) % Monocytes % (Manual) (2-11) % Eosinophils % (Manual) (2-4) % Basophils % (Manual) (0-1) % Neutrophils # (Manual) (3838-8677) /uL RBC Morphology Anisocytosis D-Dimer 211 (<230) ng/mL Sodium Potassium Chloride Carbon Dioxide BUN (7-17) mg/dL Creatinine (0.52-1.04) mg/dL Estimated GFR (>60) mL/min BUN/Creatinine Ratio (6-22) Glucose (70-100) mg/dL Lactate 1.6 (0.7-2.1) mmol/L Calcium (8.4-10.2) mg/dL Total Bilirubin (0.2-1.3) mg/dL AST (14-36) IU/L ALT (<35) IU/L Alkaline Phosphatase (38-126) U/L Troponin I < 0.024 (0.01-0.034) ng/mL Total Protein (6.3-8.2) g/dL Albumin (3.5-5.0) g/dL Globulin (1.7-4.1) g/dL Albumin/Globulin Ratio (1.0-2.8) 10/04/21 10/04/21 Range/Units 11:44 12:25 WBC 7.4 (4.5-11.0) X10^3/uL RBC 4.18 (4.0-5.2) X10^6/uL Hgb 11.8 L (12.0-16.0) g/dL Hct 34.4 L (36-46) % MCV 82.2 (80-100) fL MCH 28.2 (26-34) PG MCHC 34.3 (30-36) % RDW 15.5 H (11.6-14.8) % Plt Count 272 (150-400) X10^3/uL Neut % (Auto) Not Reportable Lymph % (Auto) Not Reportable [place] % (Auto) Not Reportable Eos % (Auto) Not Reportable Baso % (Auto) Not Reportable Lymph # (Auto) Not Reportable [place] # (Auto) Not Reportable Baso # (Auto) Not Reportable Total Counted 100 Seg Neutrophils % 49.0 (38-70) % Lymphocytes % (Manual) 43.0 (25-45) % Monocytes % (Manual) 3.0 (2-11) % Eosinophils % (Manual) 4.0 (2-4) % Basophils % (Manual) 1.0 (0-1) % Neutrophils # (Manual) 3626 (6316-0554) /uL RBC Morphology Not Reportable Anisocytosis 1+ H D-Dimer (<230) ng/mL Sodium TNP Potassium TNP Chloride TNP Carbon Dioxide TNP BUN 13 (7-17) mg/dL Creatinine 0.87 (0.52-1.04) mg/dL Estimated GFR > 60 (>60) mL/min BUN/Creatinine Ratio 14.9 (6-22) Glucose 102 H (70-100) mg/dL Lactate (0.7-2.1) mmol/L Calcium 6.5 L (8.4-10.2) mg/dL Total Bilirubin 0.3 (0.2-1.3) mg/dL AST 208 H (14-36) IU/L ALT 36 H (<35) IU/L Alkaline Phosphatase 89 (38-126) U/L Troponin I (0.01-0.034) ng/mL Total Protein 8.7 H (6.3-8.2) g/dL Albumin 3.0 L (3.5-5.0) g/dL Globulin 5.7 H (1.7-4.1) g/dL Albumin/Globulin Ratio 0.5 L (1.0-2.8) Imaging Data Chest x-ray: Radiologist's Impression: [address] [address] XRay Report Signed Patient: Mauricio Rdz MR#: [id number] : 1960 Acct:[id number] Age/Sex: 60 / F Date of Service: 10/04/21 Loc: ED Accession Number: [id number] ?? Procedure: XR chest 2V Ordering Provider: Magdiel Rothman MD PROCEDURE:? XR CHEST 2V ? INDICATIONS:? shortness of breath ? TECHNIQUE:? 2 views of the chest were acquired.? ? COMPARISON:? [facility], CR, XR CHEST 1V, 09/28/2021, 15:49. ? FINDINGS:? ? Surgical changes and devices:? None.? ? Lungs and pleura:? Increased bronchovascular markings in bilateral hilar region are seen with mild bronchial wall thickening.? No focal infiltrate.? No pleural effusions or pneumothorax.? ? Mediastinum:? Mediastinal contours are normal.? Heart size is normal.? ? Bones and chest wall:? No suspicious bony abnormalities.? Soft tissues appear unremarkable.? ? IMPRESSION:? Suggestion of mild reactive airway disease such as bronchitis or asthma.? No focal infiltrate, pleural effusion or pneumothorax.? ? ? Dictated by: Eldon Peter M.D. on 10/04/2021 at 11:53? ?? ECG Data Attestation: I personally reviewed and interpreted this ECG as follows: (Normal sinus rhythm rate 79 beats per minute. Normal intervals. No ectopy. Nonspecific ST T wave changes. Motion artifact. No acute findings.) Discharge Plan Departure Patient Disposition: Home Clinical Impression: Acute dyspnea Instructions: DI for Shortness of Breath Activity Restrictions/Additional Instructions: At this time you have mild anemia, much better than your last visit. The anemia may have been from a resolved GI bleed. If anemia persists you need further evaluation. There is no obvious cardiopulmonary disease. I would recommend detailed evaluation of your heart to assure there is no underlying arrhythmia or evidence of coronary disease. Discussed your concerns with your doctor at the time of your next visit. Return to the ER as needed. Prescriptions: No Action Citalopram Hydrobromide (Citalopram HBr) 30 mg tablet 30 mg PO BEDTIME Qty: 0 Zolpidem Tartrate (Ambien) 10 mg tablet 10 mg PO PRN MDD 10 mg PRN (Reason: Insomnia) Qty: 0 lisinopril 10 mg tablet 10 mg PO DAILY Qty: 30 0RF Referrals: Huyen Harden MD [Primary Care Provider] -
[2021-10-04 12:03] LABS: Hematocrit 34.4 % (36-46); Hemoglobin 11.8 g/dL (12.0-16.0); Mean Corpuscular HGB Conc 34.3 % (30-36); Mean Corpuscular Hemoglobin 28.2 PG (26-34); Mean Corpuscular Volume 82.2 fL (80-100); Platelet Count 272 X10^3/uL (150-400); Red Blood Cell Count 4.18 X10^6/uL (4.0-5.2); Red Cell Distribution Width 15.5 % (11.6-14.8); White Blood Cell Count 7.4 X10^3/uL (4.5-11.0)
[2021-10-04 12:05] LABS: Add Manual Diff / Slide Review YES
[2021-10-04 12:11] LABS: Anisocytosis 1+; Neutrophils Absolute Manual 3626 /uL (3000-5900); Total Cells Counted 100
[2021-10-04 13:13] LABS: Alanine Aminotransferase 36 IU/L (<35); Albumin Globulin Ratio 0.5 (1.0-2.8); Alkaline Phosphatase 89 U/L (38-126); Aspartate Aminotransferase 208 IU/L (14-36); BUN Creatinine Ratio 14.9 (6-22); Bilirubin Total 0.3 mg/dL (0.2-1.3); Blood Urea Nitrogen 13 mg/dL (7-17); Calcium 6.5 mg/dL (8.4-10.2); Estimated Glomerular Filt Rate > 60 mL/min (>60); Globulin 5.7 g/dL (1.7-4.1); Glucose 102 mg/dL (70-100); Total Protein 8.7 g/dL (6.3-8.2)
[2021-10-04 13:22] LABS: Troponin I < 0.024 ng/mL (0.01-0.034)
== END 2021-10-04 16:13 | disposition home or self-care (01) ==
PROVIDERS: Emergency Provider Emergency Medicine; PCP Student in an Organized Health Care Education/Training Program
DX: R06.00 Dyspnea, unspecified (principal)
CPT/HCPCS: 36415; 71046; 80053; 83605; 84484; 85007; 85025; 85379; 93005; 99284

== ENCOUNTER → 2021-10-06 11:28 | Outpatient (ROUT) | payer OTHER, SELFPAY ==
[2021-10-06 12:05] LABS: Red Blood Cell Count 4.08 X10^6/uL (4.0-5.2)
[2021-10-06 12:06] LABS: Hematocrit 34.4 % (36-46); Hemoglobin 11.6 g/dL (12.0-16.0); Mean Corpuscular HGB Conc 33.5 % (30-36); Mean Corpuscular Hemoglobin 28.3 PG (26-34); Mean Corpuscular Volume 84.2 fL (80-100); Platelet Count 240 X10^3/uL (150-400); Red Cell Distribution Width 15.6 % (11.6-14.8)
[2021-10-06 12:09] LABS: Add Manual Diff / Slide Review YES
[2021-10-06 12:16] LABS: Anisocytosis 1+; Neutrophils Absolute Manual 3010 /uL (3000-5900); Total Cells Counted 100
== END ==
PROVIDERS: PCP Student in an Organized Health Care Education/Training Program; Visit Provider Family Medicine
DX: E66.9 Obesity, unspecified (principal); F41.8 Other specified anxiety disorders; G47.00 Insomnia, unspecified; R06.02 Shortness of breath
CPT/HCPCS: 85007; 85025

== ENCOUNTER → 2021-10-11 15:21 | Outpatient (ROUT) | payer OTHER, SELFPAY ==
[2021-10-11 15:49] LABS: Hemoglobin 11.4 g/dL (12.0-16.0); White Blood Cell Count 6.8 X10^3/uL (4.5-11.0)
[2021-10-11 15:50] LABS: Add Manual Diff / Slide Review YES; Hematocrit 33.6 % (36-46); Mean Corpuscular HGB Conc 33.7 % (30-36); Mean Corpuscular Hemoglobin 28.4 PG (26-34); Mean Corpuscular Volume 84.2 fL (80-100); Platelet Count 178 X10^3/uL (150-400); Red Cell Distribution Width 15.5 % (11.6-14.8)
[2021-10-11 16:09] LABS: Erythrocyte Sedimentation Rate 1 MM/HR (0-20)
[2021-10-11 16:32] LABS: Alanine Aminotransferase < 8 IU/L (<35); Albumin 2.5 g/dL (3.5-5.0); Albumin Globulin Ratio 0.7 (1.0-2.8); Alkaline Phosphatase < 40 U/L (38-126); Aspartate Aminotransferase 11 IU/L (14-36); Bilirubin Total < 0.2 mg/dL (0.2-1.3); Blood Urea Nitrogen 11 mg/dL (7-17); Estimated Glomerular Filt Rate > 60 mL/min (>60); Globulin 3.5 g/dL (1.7-4.1); Glucose 70 mg/dL (70-100)
[2021-10-11 16:38] LABS: Calcium 3.9 mg/dL (8.4-10.2)
[2021-10-11 17:25] LABS: Neutrophils Absolute Manual 2244 /uL (3000-5900); Total Cells Counted 100
[2021-10-11 17:26] LABS: RBC Morphology Normal Morphology
[2021-10-11 17:31] LABS: C-Reactive Protein Quant < 1.0 mg/dL (<1.0)
[2021-10-11 17:32] LABS: HEMOLYSIS 25 (0-50)
== END ==
PROVIDERS: PCP Student in an Organized Health Care Education/Training Program; Visit Provider Family Medicine
DX: F41.8 Other specified anxiety disorders (principal); G47.00 Insomnia, unspecified; R06.02 Shortness of breath; E66.9 Obesity, unspecified
CPT/HCPCS: 80053; 85007; 85025; 85651; 86140

== ENCOUNTER 2021-10-11 17:28 | Inpatient (IN) | payer OTHER, SELFPAY ==
[2021-10-11] VITALS (8 sets, daily range): BP systolic 125–159; BP diastolic 72–95; PULSE 70–89; RESP 18–22; TEMP 35.5; O2SAT 95–100; BMI 29.3
--- NOTE | 2021-10-11 17:48 | DI.RAD.S_ITS ---
PROCEDURE: XR CHEST 1V INDICATIONS: chest pain TECHNIQUE: One view of the chest was acquired. COMPARISON: [facility], CR, XR CHEST 2V, 10/04/2021, 11:03. [facility], CR, XR CHEST 1V, 09/28/2021, 15:49. FINDINGS: Surgical changes and devices: None. Lungs and pleura: Lungs are clear. No pleural effusions or pneumothorax. Mediastinum: Mediastinal contours appear normal. Heart size is normal. Bones and chest wall: No suspicious bony lesions. Overlying soft tissues appear unremarkable. IMPRESSION: No acute cardiopulmonary disease. Dictated by: Shasta Hurt M.D. on 10/11/2021 at 18:38 Approved by: Shasta Hurt M.D. on 10/11/2021 at 18:38
[2021-10-11 18:42] LABS: HEMOLYSIS < 15 (0-50); Phosphorous 2.6 mg/dL (2.5-4.5)
[2021-10-11 18:43] LABS: Alanine Aminotransferase 48 IU/L (<35); Alkaline Phosphatase 133 U/L (38-126); Aspartate Aminotransferase 132 IU/L (14-36); Bilirubin Total 0.6 mg/dL (0.2-1.3); Blood Urea Nitrogen 22 mg/dL (7-17); Creatine Kinase 64 U/L (30-135); Glucose 171 mg/dL (70-100)
[2021-10-11 18:47] LABS: BUN Creatinine Ratio 137.5 (6-22); Estimated Glomerular Filt Rate > 60 mL/min (>60)
[2021-10-11 19:07] LABS: Add Manual Diff / Slide Review NO; Basophils Absolute Auto 0 /uL (0-100); Basophils Percent Auto 0.3 % (0-2); Eosinophils Absolute Auto 0 /uL (0-450); Eosinophils Percent Auto 1.4 % (2-4); Lymphocytes Absolute Auto 1600 /uL (1100-4500); Mean Corpuscular HGB Conc 34.8 % (30-36); Mean Corpuscular Hemoglobin 28.8 PG (26-34); Mean Corpuscular Volume 82.9 fL (80-100); Monocytes Absolute Auto 200 /uL (0-900); Monocytes Percent Auto 6.5 % (3-14); Neutrophils Absolute Auto 1000 /uL (1500-7000); Neutrophils Percent Auto 34.8 % (50-75); Red Blood Cell Count 3.99 X10^6/uL (4.0-5.2); Red Cell Distribution Width 15.8 % (11.6-14.8); White Blood Cell Count 8.7 X10^3/uL (4.5-11.0)
[2021-10-11 19:08] LABS: Hemoglobin 11.4 g/dL (12.0-16.0); Platelet Count 189 X10^3/uL (150-400)
[2021-10-11 19:13] LABS: Lipase 38 U/L (23-300)
[2021-10-11 19:23] LABS: Albumin 10.9 g/dL (3.5-5.0)
[2021-10-11 19:26] LABS: Albumin Globulin Ratio 2.2 (1.0-2.8); Globulin 4.9 g/dL (1.7-4.1); Total Protein 15.8 g/dL (6.3-8.2)
[2021-10-11 19:27] LABS: Calcium 2.2 mg/dL (8.4-10.2); Magnesium 0.8 mg/dL (1.6-2.3)
[2021-10-11] MEDS: CALCIUM GLUCONATE 9.3 MEQ in SODIUM CHLORIDE 0.9% 50 ML 140 MEQ IV (19:55)
[2021-10-11] MEDS: MAGNESIUM SULFATE 2 GM/50 ML PIGGYBACK IV (20:13)
--- NOTE | 2021-10-11 20:18 | ED.RECABL ---
HPI - Recheck/Abnormal Lab/Rx General Chief Complaint: Recheck/Abnormal Lab/Rx Stated Complaint: low calcium levels, sent by MD Time Seen by Provider: 10/11/21 18:04 Source: patient Mode of arrival: Ambulatory History of Present Illness HPI narrative: Patient here for lightheadedness dizziness weakness and near syncope. Patient has been followed by primary care Dr Harper, for hypocalcemia. Idiopathic. Patient denies any recent illness fever chills cough congestion, no urinary complaints. No night sweats or unexplained weight loss. Patient did have CT scan abdomen pelvis this month as well. Denies any chest pain or palpitations. Related Data Home Medications Medication Instructions Recorded Confirmed Citalopram Hydrobromide 30 mg PO BEDTIME depression ##0 02/03/10 10/11/21 (Citalopram HBr) Zolpidem Tartrate (Ambien) 10 mg PO PRN PRN Insomnia ##0 02/03/10 10/11/21 Previous Rx's Medication Instructions Recorded lisinopril 10 mg tablet 10 mg PO DAILY #30 tabs 10/01/21 Allergies Allergy/AdvReac Type Severity Reaction Status Date / Time No Known Drug Allergies Allergy Verified 10/04/21 10:50 Review of Systems Review of Systems Narrative: GENERAL: Denies chills, positive for fatigue, malaise, negative for fever, sweats. HEENT: Denies sinus pain, ear pain, sore throat RESPIRATORY: Denies dyspnea, cough CARDIOVASCULAR: Denies chest pain, palpitations, positive for near-syncope GASTROINTESTINAL: Denies nausea, vomiting, abdominal pain : Denies dysuria, frequency, hematuria MUSCULOSKELETAL: denies muscle or bony pain SKIN: Denies rash, skin lesions NEUROLOGIC: Denies weakness, numbness ROS Unobtainable: All systems reviewed & are unremarkable except as noted in HPI and below Patient History Medical History Anemia Anxiety GI bleed Surgical History Status post surgery (02/03/10) Status post surgery (12/02/12) Social History household members: spouse Smoking Status: Never smoker alcohol intake: former Smoking Status: Never smoker alcohol intake frequency: other Substance Use Type: does not use Exam Narrative Exam Narrative: GENERAL: in no distress, not toxic not dyspneic HEAD: Normocephalic. EYES: Pupils equal round No scleral icterus. ENT: Mucous membranes moist. NECK: Trachea midline. CARDIOVASCULAR: Regular rate and rhythm without murmurs RESPIRATORY: Clear to auscultation. Breath sounds equal bilaterally. No wheezes, rales, or rhonchi. GASTROINTESTINAL: Abdomen soft, non-tender EXTREMITIES: No gross deformities. BACK: No flank tenderness. NEURO: AOx4. SKIN: Warm and dry PSYCH: Not anxious, is cooperative Initial Vital Signs Initial Vital Signs: Vital Signs Temperature 96 F L 10/11/21 17:45 Pulse Rate 89 10/11/21 17:45 Respiratory Rate 18 10/11/21 17:45 Blood Pressure 125/75 10/11/21 17:45 Pulse Oximetry 100 10/11/21 17:45 Oxygen Delivery Method 10/11/21 17:45 Course Course Course Narrative: No new issues during course of stay Decision to Admit Date: 10/11/21 Decision to Admit time: 20:23 Orders Ordered: Discontinued Medications Calcium Gluconate 4.65 meq/ (Sodium Chloride) 60 mls @ 180 mls/hr IV NOW ONE Stop: 10/11/21 18:14 Last Admin: 10/11/21 19:51 Dose: Not Given Documented By: MANNIE Calcium Gluconate 9.3 meq/ (Sodium Chloride) 70 mls @ 140 mls/hr IV NOW ONE Stop: 10/11/21 20:14 Last Infusion: 10/11/21 20:29 Dose: 0 mls/hr Documented By: Admin: 10/11/21 19:55 Dose: 140 mls/hr Documented By: LUCIO Magnesium Sulfate (Magnesium Sulfate) 2 gm in 50 mls @ 25 mls/hr IV NOW ONE Stop: 10/11/21 21:45 Last Infusion: 10/11/21 22:30 Dose: 0 mls/hr Documented By: GABRIEL Co-signed By: LUCIO Admin: 10/11/21 20:13 Dose: 25 mls/hr Documented By: GABRIEL Co-signed By: LUCIO Zolpidem Tartrate (Zolpidem 5 Mg Tablet) 10 mg PO BEDTIME ONE Stop: 10/11/21 22:52 Last Admin: 10/11/21 23:07 Dose: 10 mg Documented By: OW Reevaluation(s) Reevaluation #1: Patient understands and agrees for admit. Will need further workup. Time: 20:23 Consultations Consultation #1: Spoke with primary care dr harper will admit Time: 20:15 Vital Signs Vital signs: Vital Signs - 8 hr 10/11/21 17:45 Temperature 96 F L Pulse Rate 89 Respiratory Rate 18 Blood Pressure 125/75 Pulse Oximetry 100 Oxygen Delivery Method Room Air MDM - Recheck/Abnormal Lab/Rx Differential Diagnosis Differential diagnosis: Likely other (Hypocalcemia/hypophosphatemia/hypo magnesium) Lab Data Result diagrams: 10/11/21 18:16 10/11/21 18:16 Labs: Lab Results 10/11/21 10/11/21 10/11/21 Range/Units 18:16 18:16 18:16 WBC 8.7 (4.5-11.0) X10^3/uL RBC 3.99 L (4.0-5.2) X10^6/uL Hgb 11.4 L (12.0-16.0) g/dL Hct 33.0 L (36-46) % MCV 82.9 (80-100) fL MCH 28.8 (26-34) PG MCHC 34.8 (30-36) % RDW 15.8 H (11.6-14.8) % Plt Count 189 (150-400) X10^3/uL Neut % (Auto) 34.8 L (50-75) % Lymph % (Auto) 57.0 H (25-40) % [place] % (Auto) 6.5 (3-14) % Eos % (Auto) 1.4 L (2-4) % Baso % (Auto) 0.3 (0-2) % Neut # (Auto) 1000 L (3014-7767) /uL Lymph # (Auto) 1600 (6922-9177) /uL [place] # (Auto) 200 (0-900) /uL Eos # (Auto) 0 (0-450) /uL Baso # (Auto) 0 (0-100) /uL Sodium TNP Potassium TNP Chloride TNP Carbon Dioxide TNP BUN 22 H (7-17) mg/dL Creatinine 0.16 L (0.52-1.04) mg/dL Estimated GFR > 60 (>60) mL/min BUN/Creatinine Ratio 137.5 H (6-22) Glucose 171 H D (70-100) mg/dL Calcium 2.2 L* (8.4-10.2) mg/dL Phosphorus 2.6 (2.5-4.5) mg/dL Magnesium 0.8 L* 1.0 L (1.6-2.3) mg/dL Total Bilirubin 0.6 (0.2-1.3) mg/dL AST 132 H (14-36) IU/L ALT 48 H (<35) IU/L Alkaline Phosphatase 133 H D (38-126) U/L Total Creatine Kinase 64 (30-135) U/L CK-MB (CK-2) TNP CK-MB (CK-2) Rel Index TNP Troponin I TNP Total Protein 15.8 H (6.3-8.2) g/dL Albumin 10.9 H (3.5-5.0) g/dL Globulin 4.9 H (1.7-4.1) g/dL Albumin/Globulin Ratio 2.2 (1.0-2.8) Lipase 38 (23-300) U/L 25-OH Vitamin D Total TSH (0.47-4.68) uIU/mL 10/11/21 10/11/21 Range/Units 19:50 19:50 WBC (4.5-11.0) X10^3/uL RBC (4.0-5.2) X10^6/uL Hgb (12.0-16.0) g/dL Hct (36-46) % MCV (80-100) fL MCH (26-34) PG MCHC (30-36) % RDW (11.6-14.8) % Plt Count (150-400) X10^3/uL Neut % (Auto) (50-75) % Lymph % (Auto) (25-40) % [place] % (Auto) (3-14) % Eos % (Auto) (2-4) % Baso % (Auto) (0-2) % Neut # (Auto) (4356-7886) /uL Lymph # (Auto) (4296-7252) /uL [place] # (Auto) (0-900) /uL Eos # (Auto) (0-450) /uL Baso # (Auto) (0-100) /uL Sodium Potassium Chloride Carbon Dioxide BUN (7-17) mg/dL Creatinine (0.52-1.04) mg/dL Estimated GFR (>60) mL/min BUN/Creatinine Ratio (6-22) Glucose (70-100) mg/dL Calcium (8.4-10.2) mg/dL Phosphorus (2.5-4.5) mg/dL Magnesium (1.6-2.3) mg/dL Total Bilirubin (0.2-1.3) mg/dL AST (14-36) IU/L ALT (<35) IU/L Alkaline Phosphatase (38-126) U/L Total Creatine Kinase (30-135) U/L CK-MB (CK-2) CK-MB (CK-2) Rel Index Troponin I Total Protein (6.3-8.2) g/dL Albumin (3.5-5.0) g/dL Globulin (1.7-4.1) g/dL Albumin/Globulin Ratio (1.0-2.8) Lipase (23-300) U/L 25-OH Vitamin D Total TNP TSH 1.50 (0.47-4.68) uIU/mL Imaging Data Chest x-ray: Radiologist's Impression: [address] [address] XRay Report Signed Patient: Mauricio Rdz MR#: [id number] : 1960 Acct:[id number] Age/Sex: 60 / F Date of Service: 10/11/21 Loc: ED Accession Number: [id number] ?? Procedure: XR chest 1V Ordering Provider: Virginia Alejandra D.O. PROCEDURE:? XR CHEST 1V ? INDICATIONS:? chest pain ? TECHNIQUE:? One view of the chest was acquired.? ? COMPARISON:? [facility], CR, XR CHEST 2V, 10/04/2021, 11:03.? [facility], CR, XR CHEST 1V, 09/28/2021, 15:49. ? FINDINGS:? ? Surgical changes and devices:? None.? ? Lungs and pleura:? Lungs are clear.? No pleural effusions or pneumothorax.? ? Mediastinum:? Mediastinal contours appear normal.? Heart size is normal.? ? Bones and chest wall:? No suspicious bony lesions.? Overlying soft tissues appear unremarkable.? ? IMPRESSION:? No acute cardiopulmonary disease. ? ? ? Dictated by: Shasta Hurt M.D. on 10/11/2021 at 18:38 ? ? Approved by: Shasta Hurt M.D. on 10/11/2021 at 18:38 ? ECG Data Interpretation: Sinus rhythm rate [address] elevation MDM Narrative Medical decision making narrative: Appropriate for admission for severe hypocalcemia. Replacement has been started for calcium as well as magnesium. Reviewed with hospitalist/primary care and will admit. Discharge Plan Departure Patient Disposition: Admitted as Observation Clinical Impression: Hypocalcemia Admit Date/Time: 10/11/21 20:22 Admit Provider: Fam Harper
[2021-10-11 21:03] LABS: COVID19 -Nasal RAPID Negative (Negative)
--- NOTE | 2021-10-11 21:08 | PC.NURSE ---
Pt walked to bathroom with steady gait. Pt has standby assist due to feeling unsteady as she walks.
[2021-10-11] MEDS: ZOLPIDEM 5 MG TABLET 10 MG PO (23:07)
[2021-10-12] VITALS (26 sets, daily range): BP systolic 106–156; BP diastolic 57–98; PULSE 67–93; RESP 17–20; TEMP 36.2–36.9; O2SAT 91–98; BMI 29.3
[2021-10-12 07:38] LABS: HEMOLYSIS < 15 (0-50)
[2021-10-12 07:43] LABS: Blood Urea Nitrogen 16 mg/dL (7-17)
[2021-10-12 07:48] LABS: Glucose 110 mg/dL (70-100)
[2021-10-12 07:50] LABS: Aspartate Aminotransferase 104 IU/L (14-36)
[2021-10-12 07:51] LABS: Alanine Aminotransferase 30 IU/L (<35); Alkaline Phosphatase 82 U/L (38-126)
[2021-10-12 07:53] LABS: Albumin 8.6 g/dL (3.5-5.0)
[2021-10-12 07:56] LABS: Globulin 8.4 g/dL (1.7-4.1)
[2021-10-12 08:02] LABS: Bilirubin Total < 0.2 mg/dL (0.2-1.3)
[2021-10-12 08:32] LABS: BUN Creatinine Ratio 11.9 (6-22); Estimated Glomerular Filt Rate 46 mL/min (>60)
--- NOTE | 2021-10-12 09:24 | PM.HP.1 ---
History of Present Illness History of Present Illness Date Patient Seen: 10/12/21 Time Patient Seen: 08:50 Chief complaint: low calcium levels, sent by Narrative: Pt presented to my outpatient clinic with CC of extreme fatigue. She has recent hx of unexplained GI bleed requiring transfusion and then noted that for the last few days she has been experiencing extreme epistaxis in absence of trauma. A blood draw was performed and she became even more weak and eventually had to be assisted to the car by her after initially declining transport to ED. The blood draw revealed markedly viscous blood and stat analysis revealed extremely low calcium levels. She was advised to present to ED where she was found to have a calcium of 2.2 as well as low magnesium both of which were repleted. She feels better this morning but is still a bit tentative. She endorses some appetite, feels strong enough to get up but still weak. Subsequently today I received a very nice request from our medical laboratory manager to please stop trying to order blood chemistries for our patient because they are so viscous they threaten to break the equipment. Although outpatient labs showed low calcium and low albumin and protein, repeat labs today show extremely elevated proteins which would be consistent with hyperviscosity syndrome due to underlying overproduction. Patient History Medical History Anemia Anxiety GI bleed Surgical History Status post surgery (02/03/10) Status post surgery (12/02/12) Family & Social History Social History: household members spouse Safety & Behavioral: Feels Safe in Current Yes Environment Been Physically Hurt or No Threatened By a Person Tobacco & Substance use: Smoking Status Never smoker alcohol intake former alcohol intake frequency other Substance Use Type does not use Meds Home Medications and Allergies Home Medications Medication Instructions Recorded Confirmed Type Citalopram Hydrobromide 30 mg PO BEDTIME depression ##0 02/03/10 10/12/21 History (Citalopram HBr) Zolpidem Tartrate (Ambien) 10 mg PO PRN PRN Insomnia ##0 02/03/10 10/12/21 History Allergies Allergy/AdvReac Type Severity Reaction Status Date / Time No Known Drug Allergies Allergy Verified 10/04/21 10:50 Review of Systems Review of Systems Narrative: all systems reviewed and negative except as otherwise documented in HPI Exam Vital Signs (past 8 hours): - 10/12/21 02:00 10/12/21 02:30 10/12/21 03:00 Pulse Rate 83 80 75 Respiratory Rate 20 Blood Pressure 149/88 H Pulse Oximetry 94 94 96 Oxygen Delivery Method Room Air 10/12/21 03:01 10/12/21 03:01 10/12/21 03:30 Pulse Rate 82 67 Respiratory Rate Blood Pressure 117/74 Pulse Oximetry 97 94 Oxygen Delivery Method Room Air 10/12/21 04:00 10/12/21 04:00 10/12/21 04:30 Pulse Rate 73 72 Respiratory Rate Blood Pressure 106/57 L Pulse Oximetry 94 95 Oxygen Delivery Method 10/12/21 05:00 10/12/21 05:01 10/12/21 05:01 Pulse Rate 74 83 Respiratory Rate Blood Pressure 156/91 H Pulse Oximetry 96 97 Oxygen Delivery Method 10/12/21 05:30 10/12/21 06:00 10/12/21 06:30 Pulse Rate 71 75 93 H Respiratory Rate Blood Pressure Pulse Oximetry 93 92 Oxygen Delivery Method Room Air 10/12/21 07:00 10/12/21 07:30 10/12/21 07:33 Pulse Rate 75 70 79 Respiratory Rate Blood Pressure Pulse Oximetry 95 96 98 Oxygen Delivery Method 10/12/21 07:33 Pulse Rate Respiratory Rate Blood Pressure 144/69 H Pulse Oximetry Oxygen Delivery Method Oxygen Delivery Method Room Air Narrative Exam Narrative: laying on [facility] having got some sleep finally Const General: cooperative, anxious and ill appearing Resp Other: moving air well clear to auscultation bilaterally Cardio Other: regular rate S1/S2 GI Other: soft nontender nondistended normal bowel sounds Skin General: ecchymosis Neuro General: patient alert, patient awake, patient oriented x3, tone normal, moves all extremities, CN's II-XI intact bilaterally and other (negative chvostek) Extrem General: normal to inspection, full ROM and no pedal edema Psych Appearance: grossly normal and well kempt Mental Status: mental status grossly normal Speech and Movement: speech and movement normal Objective Labs Result Diagrams: 10/11/21 18:16 10/12/21 06:24 Labs: Laboratory Results - last 24 hr 06/29/22 06/29/22 06/29/22 18:16 18:16 18:16 WBC 8.7 RBC 3.99 L Hgb 11.4 L Hct 33.0 L MCV 82.9 MCH 28.8 MCHC 34.8 RDW 15.8 H Plt Count 189 Neut % (Auto) 34.8 L Lymph % (Auto) 57.0 H Ellsworth % (Auto) 6.5 Eos % (Auto) 1.4 L Baso % (Auto) 0.3 Neut # (Auto) 1000 L Lymph # (Auto) 1600 [place] # (Auto) 200 Eos # (Auto) 0 Baso # (Auto) 0 Sodium TNP Potassium TNP Chloride TNP Carbon Dioxide TNP BUN 22 H Creatinine 0.16 L Estimated GFR > 60 BUN/Creatinine Ratio 137.5 H Glucose 171 H D Calcium 2.2 L* Phosphorus 2.6 Magnesium 0.8 L* 1.0 L Total Bilirubin 0.6 AST 132 H ALT 48 H Alkaline Phosphatase 133 H D Total Creatine Kinase 64 CK-MB (CK-2) TNP CK-MB (CK-2) Rel Index TNP Troponin I TNP Total Protein 15.8 H Albumin 10.9 H Globulin 4.9 H Albumin/Globulin Ratio 2.2 Lipase 38 25-OH Vitamin D Total TSH SARS-CoV-2 (PCR) 10/11/21 10/11/21 10/11/21 19:50 19:50 20:45 WBC RBC Hgb Hct MCV MCH MCHC RDW Plt Count Neut % (Auto) Lymph % (Auto) Ellsworth % (Auto) Eos % (Auto) Baso % (Auto) Neut # (Auto) Lymph # (Auto) Ellsworth # (Auto) Eos # (Auto) Baso # (Auto) Sodium Potassium Chloride Carbon Dioxide BUN Creatinine Estimated GFR BUN/Creatinine Ratio Glucose Calcium Phosphorus Magnesium Total Bilirubin AST ALT Alkaline Phosphatase Total Creatine Kinase CK-MB (CK-2) CK-MB (CK-2) Rel Index Troponin I Total Protein Albumin Globulin Albumin/Globulin Ratio Lipase 25-OH Vitamin D Total TNP TSH 1.50 SARS-CoV-2 (PCR) Negative 10/12/21 06:24 WBC RBC Hgb Hct MCV MCH MCHC RDW Plt Count Neut % (Auto) Lymph % (Auto) Ellsworth % (Auto) Eos % (Auto) Baso % (Auto) Neut # (Auto) Lymph # (Auto) Ellsworth # (Auto) Eos # (Auto) Baso # (Auto) Sodium TNP Potassium TNP Chloride TNP Carbon Dioxide TNP BUN 16 Creatinine 1.34 H Estimated GFR 46 L BUN/Creatinine Ratio 11.9 Glucose 110 H Calcium 7.0 L Phosphorus Magnesium Total Bilirubin < 0.2 L AST 104 H ALT 30 Alkaline Phosphatase 82 D Total Creatine Kinase CK-MB (CK-2) CK-MB (CK-2) Rel Index Troponin I Total Protein 17.0 H Albumin 8.6 H Globulin 8.4 H Albumin/Globulin Ratio 1.0 Lipase 25-OH Vitamin D Total TSH SARS-CoV-2 (PCR) Assessment & Plan Assessment & Plan narrative: #hyperviscosity syndrome clinical diagnosis on basis of extremely viscous blood with extremely elevated protein results. suspect malignant process e.g. waldenstrom macroglobulinemia, checking protein electrophoresis She may require plasmapheresis so we are exploring transfer options If she develops neurological symptoms will need to phlemotomize off a pint or two and replace with saline unfortunately that's really all we have the capability for at this facility I suspect this viscosity is affecting the blood chemistry results, and causing sundry degrees of: #extreme laboratory derangements take your pick! hyperproteinemia? hypocalcemia? hypomagnesemia? all present to varying degrees with wildly fluctuant creatinine as well I am getting extremely labile results along with a polite request from medical laboratory manager to please stop running chemistries lest it break the machines Pt did have extremely low magnesium and calcium on presentation so the ED did replete those initially and she does feel somewhat better today however I do not have great confidence in these results and she did not really demonstrate strong clinical signs of acute hypocalcemia such as would be expected with a Ca of 2.2. Hold chemistries for now gentle ivf #HTN stable continue home losartan #depression stable continue home citalopram 40 #insomnia stable continue home meds as needed dispo: exploring transfer options this is a hematological emergency she could decline precipitously Code: full diet: heart healthy dvt: holding as she is active bleeding risk MDM: Time Spent With Patient Critical Care time: I spent a total of [] minutes of critical care time on this patient's care today; this time is exclusive of procedural time.
[2021-10-12 11:35] LABS: Magnesium 2.6 mg/dL (1.6-2.3)
[2021-10-12] MEDS: SODIUM CHLORIDE 0.45% 1,000 ML 84 ML IV (18:28)
[2021-10-12] MEDS: CITALOPRAM 10 MG TABLET 40 MG PO (21:37)
[2021-10-12] MEDS: ZOLPIDEM 5 MG TABLET 10 MG PO (21:38)
[2021-10-13] VITALS (8 sets, daily range): BP systolic 118–153; BP diastolic 72–93; PULSE 67–76; RESP 16–18; TEMP 36.2–36.6; O2SAT 94–97
[2021-10-13] MEDS: ACETAMINOPHEN 325 MG TABLET 650 MG PO ×3 (00:06→13:28)
[2021-10-13] MEDS: SODIUM CHLORIDE 0.45% 1,000 ML 84 ML IV ×2 (06:46→18:11)
--- NOTE | 2021-10-13 08:43 | CM.DANOTE ---
Case received, EMR reviewed and met with patient. Introduced self and role. Was able to obtain information regarding patient's baseline activity status prior to hospitalization. DCP assessment completed with information currently available. Patient is a 60 year old female who admitted yesterday afternoon to the care of the hospitalist team. PCP: Dr. Singh. Payer: confirmed: [facility]. Patient came to the hospital via family vehicle secondary to having increased fatigue, as well a extreme epistaxis in the event of trauma. Patient was diagnosed with hyperviscosity syndrome, hypocalcemia. Provider is working on getting patient transferred to a higher level hospital to a apprenticeship consultant. Met with patient in her room. She was sitting up in bed having breakfast. Confirmed that she resides here in [place] with spouse, Leo. She is independent at baseline. She is wondering when she will be transferred?. Let her know that hospital is working on getting patient a bed. P: DCP to continue to follow. Patient is supposed to be transferred to higher level of care where she can see a apprenticeship consultant, as soon as a bed becomes available. Amira Haile RN/Rigging Loft Mechanic Discharge Planning/Care Management Discharge Assessment Start: 10/13/21 08:42 Freq: Status: Active Protocol: Document 10/13/21 08:42 (Rec: 10/13/21 08:43 [id number]) Discharge Planning Assessment Assigned Boiling Tub Operator Amira Haile RN/Rigging Loft Mechanic Advance Directives? No Advance Directives on File No History Provided By Patient,Medical Record Prior Living Arrangements House Household Members spouse Type of transporation used prior to Drives own vehicle admit Independent with ADL's Yes Is patient alert and oriented? Yes Caregiver for Another No Comment Availability of bed at higher level hospital Discharge Plan Transfer to Higher Level of Care Transportation Arrangement Spouse Referrals Initiated None needed Whiteboard Updated in Patient Room with Yes name and ext. # of Boiling Tub Operator Review Status In Process Next Review Type Continued Stay Review Discharge Planning/Care Management Discharge Assessment Start: 10/13/21 08:42 Freq: Status: Active Protocol: Document 10/13/21 08:42 (Rec: 10/13/21 08:43 [id number]) Discharge Planning Assessment Assigned Boiling Tub Operator Amira Haile RN/Rigging Loft Mechanic Advance Directives? No Advance Directives on File No History Provided By Patient,Medical Record Prior Living Arrangements House Household Members spouse Type of transporation used prior to Drives own vehicle admit Independent with ADL's Yes Is patient alert and oriented? Yes Caregiver for Another No Comment Availability of bed at higher level hospital Discharge Plan Transfer to Higher Level of Care Transportation Arrangement Spouse Referrals Initiated None needed Whiteboard Updated in Patient Room with Yes name and ext. # of Boiling Tub Operator Review Status In Process Next Review Type Continued Stay Review
[2021-10-13] MEDS: LOSARTAN 50 MG TABLET PO (09:50)
[2021-10-13] MEDS: DOCUSATE 100 MG CAPSULE PO (09:50)
--- NOTE | 2021-10-13 13:41 | P.DS_ITS ---
History of Present Illness History of Present Illness Date Patient Seen: 10/13/21 Time Patient Seen: 08:50 Date of Onset of Symptoms: 09/13/21 Chief complaint: low calcium levels, sent by Narrative: This pleasant lady familiar to my care presented to my outpatient clinic on [place] with CC of extreme fatigue. 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 Over last month or so she has been increasingly fatigued and also was admitted 2 weeks ago for unexplained GI bleed requiring transfusion for which we never found a source. She also noted that for the last few days she had been experiencing extreme bilateral epistaxis in absence of trauma or digital exploration. A blood draw was performed in office and she became even more weak and eventually had to be assisted to the car by her after declining transport to ED. The blood draw revealed markedly viscous blood and stat analysis revealed extremely low calcium levels. I called her to advise her to present to ED where she was found to have a calcium of 2.2 as well as low magnesium and high protein. I was then called to admit her. Discharge Providers Provider Date of admission: 10/12/21 12:18 Discharge Date: 10/13/21 Primary care physician: Fam Singh MD Discharge provider: Fam Singh MD Summary Hospital Course Discharge Diagnosis: hyperviscosity syndrome hyperproteinemia fatigue hypocalcemia hypomagenesemia hypertension MDD insomnia Hospital Course: Ms. Butt calcium and magnesium were both repleted however even with a profound hypocalcemia per lab report she did not show dramatic signs and symptoms of hypocalcemia. She felt somewhat better the next day but still quite weak and tentative. She endorses some appetite, feels strong enough to get up but still weak. I received a very nice request from our dental laboratory technology teacher to please stop trying to order blood chemistries for this patient because they are so viscous they threaten to break the equipment. Labs do show extremely elevated proteins which would be consistent with hyperviscosity syndrome due to underlying overproduction. In light of the limited treatment options available to us here (pretty much just phlebotomy and hydration) we moved forward with transfer options. She remains more or less stable able to ambulate short distances but easily winded with some easy bruising but neurologically intact. serum and urine protein electrophoresis results are still pending. Status at Discharge Cognitive/behavioral status at discharge: oriented and calm Functional status at discharge: independent ambulation Overall status at discharge: patient is not back to baseline Exam Vital Signs (past 8 hours): - 10/13/21 05:54 10/13/21 08:28 10/13/21 08:43 Temperature 97.3 F L 97.2 F L Pulse Rate 67 68 Respiratory Rate 16 18 Blood Pressure 140/93 H 133/72 Pulse Oximetry 97 94 94 Oxygen Delivery Method Room Air Oxygen Flow Rate 0 0 10/13/21 09:50 10/13/21 11:32 Temperature 97.5 F L Pulse Rate 68 71 Respiratory Rate 18 Blood Pressure 133/72 118/73 Pulse Oximetry 95 Oxygen Delivery Method Oxygen Flow Rate 0 Oxygen Delivery Method Room Air Oxygen Flow Rate 0 Narrative Exam Narrative: laying in bed resting Const General: cooperative and comfortable Resp Auscultation: clear to auscultation bilaterally Cardio Rate: regular rate Rhythm: regular rhythm Heart Sounds: S1 normal and S2 normal GI Other: soft nontender nondistended Skin Other: some scattered ecchymoses no large spreading lesions Neuro General: patient alert, patient awake, patient oriented x3, gait normal, tone normal, moves all extremities, CN's II-XI intact bilaterally and deep tendon reflexes 2+ bilaterally Extrem General: full ROM and no pedal edema Psych Appearance: grossly normal Mental Status: mental status grossly normal Speech and Movement: speech and movement normal Objective Labs Result Diagrams: 10/11/21 18:16 10/12/21 06:24 Labs: Laboratory Results - last 24 hr 10/12/21 14:39 Calcium Cancelled Magnesium Cancelled Albumin Cancelled [facility] Medical History Anemia Anxiety GI bleed Surgical History Status post surgery (02/03/10) Status post surgery (12/02/12) Social History household members: spouse Smoking Status: Never smoker alcohol intake: former Discharge Assessment & Plan Assessment and Plan Assessment: #hyperviscosity syndrome #elevated serum protein clinical diagnosis on basis of extremely viscous blood with extremely elevated protein results. serum viscosity lab still pending suspect malignant process e.g. waldenstrom macroglobulinemia, checking protein electrophoresis of serum and urine which is still pending She may require plasmapheresis so we are exploring transfer options If she develops neurological symptoms will need to phlemotomize off a pint or two and replace with saline IVF unfortunately that's really all we have the capability for at this facility I suspect this viscosity is affecting the lab results, and causing sundry degrees of: #extreme laboratory derangements We have seen evidence of? hypocalcemia, hypomagnesemia, elevated ALP, glucose, creatinine, BUN Extremely labile results along with a polite request from dental laboratory technology teacher to please stop running chemistries lest it break the machines Pt did have extremely low magnesium and calcium on presentation so the ED did replete those initially and she does feel somewhat better today however I do not have great confidence in these results and she did not really demonstrate strong clinical signs of acute hypocalcemia such as would be expected with a Ca of 2.2. Holding chemistries for now IVF at 84 #HTN stable continue home losartan #depression stable continue home citalopram 40 #insomnia stable continue home meds as needed dispo: transferring to [facility] for access to plasmapheresis Code: full diet: heart healthy dvt: holding as she is active bleeding risk MDM: 40 minutes spent in this discharge Discharge Plan Discharge Plan Patient Disposition: [facility] Other facility: [facility] Under care of provider: Dr. Anastacia Michelle Diet/Activity/Treatments Diet: Diet as Tolerated Discharge Data Primary Care Provider: Fam Singh VTE Deep Vein Thrombosis/Pulmonary Embolism Present on Admission: No
--- NOTE | 2021-10-13 17:59 | PC.NURSE ---
Spoke to Kristin SEARS via phone at [facility] to give pt report, pt transporting today via chopper.
[2021-10-13] MEDS: CITALOPRAM 10 MG TABLET 40 MG PO (20:44)
[2021-10-13] MEDS: ZOLPIDEM 5 MG TABLET 10 MG PO (22:08)
[2021-10-14 02:09] VITALS: PULSE 73; RESP 18
[2021-10-14] MEDS: ACETAMINOPHEN 325 MG TABLET 650 MG PO (05:38)
[2021-10-14 05:46] VITALS: BP 157/107; PULSE 78; RESP 18; TEMP 36.1; O2SAT 98
[2021-10-14 07:00] VITALS: O2SAT 97
[2021-10-14 07:20] VITALS: BP 147/100; PULSE 81; RESP 18; TEMP 36.6; O2SAT 94
--- NOTE | 2021-10-14 09:09 | P.PN_ITS ---
Subjective Subjective Date Patient Seen: 10/14/21 Time Patient Seen: 09:09 Interval history: Patient seen and evaluated this morning doing well. Resting comfortably in bed. Wondering about when she is going to be transferred. I guess transfer was arranged to couple times yesterday and fell through because a bed status. Patient did well overnight did not sleep well she is feeling very weak and very thirsty. No apparent neurological changes bleeding concerns vital signs have been stable. No recent laboratory tests have been done. Exam Vital Signs (past 8 hours): - 10/14/21 02:09 10/14/21 05:46 10/14/21 07:00 Temperature 97.0 F L Pulse Rate 73 78 Respiratory Rate 18 18 Blood Pressure 157/107 H Pulse Oximetry 98 97 Oxygen Delivery Method Room Air Oxygen Flow Rate 0 10/14/21 07:20 Temperature 97.8 F Pulse Rate 81 Respiratory Rate 18 Blood Pressure 147/100 H Pulse Oximetry 94 Oxygen Delivery Method Oxygen Flow Rate 0 Oxygen Delivery Method Room Air Oxygen Flow Rate 0 Narrative Exam Narrative: Gen.: She is alert good historian HEENT: Pupils equal round and reactive or mucosa is moist neck is supple Cardio: S1-S2 regular rate and rhythm Respiratory: Normal respiratory effort Abdomen: Soft nontender Extremities: Full range of motion Neurologic: Grossly intact Objective Labs Result Diagrams: 10/11/21 18:16 10/12/21 06:24 [facility] Medical History Anemia Anxiety GI bleed Surgical History Status post surgery (02/03/10) Status post surgery (12/02/12) Social History household members: spouse Smoking Status: Never smoker alcohol intake: former Assessment & Plan Assessment and plan (1) Hyperviscosity syndrome: Status: Acute Plan hyperviscosity syndrome patient with elevated protein and complaints of significant weakness intermitte nt bleeding no neurological deficits. Admitted the hospital because of significant abnormalities and blood work. Abnormalities include hypocalcemia acute kidney injury hyperproteinemia hypo magnesium. all these laboratory derangements are due to underlying blood abnormality. Patient was a anticip ating transfer yesterday transfer fell through. Have phone calls out to [facility] and [facility]. Patient will need transfer to their facility has is an emergency. For plasmapheresis. Unfortunately because of bed availability patient is on a waiting list. both facilities tell me that to they have 30 patient's 40 and that she is in the list and will be transferred when a bed is available. Updated patient with transfer of option care. Current list Morning have talked to [facility] and [facility]. Yesterday patient had transfer range to [facility] which fell apart. Hypocalcemia Hypomagnesia Acute kidney injury acute anemia History of hypertension History of depression Disposition and plan. Patient is acute but medically stable. Awaiting transfer. Time Spent With Patient Critical Care time: I spent a total of [] minutes of critical care time on this patient's care today; this time is exclusive of procedural time. Quality VTE Deep Vein Thrombosis/Pulmonary Embolism Present on Admission: No
[2021-10-14 09:24] VITALS: BP 147/100
[2021-10-14] MEDS: LOSARTAN 50 MG TABLET PO (09:24)
[2021-10-14] MEDS: DOCUSATE 100 MG CAPSULE PO (09:24)
--- NOTE | 2021-10-14 12:05 | PC.NURSE ---
Report given to [facility]
[2021-10-14] MEDS: OXYCODONE IR 10 MG TABLET 5 MG PO (12:18)
[2021-10-14] MEDS: CITALOPRAM 10 MG TABLET 40 MG PO (12:19)
--- NOTE | 2021-10-14 12:20 | PC.NURSE ---
anxiety: transfer center said NO visitors. pt crying and anxious. citalopram given early for anxiety. Oxy for generalized pain heightened due to anxiety. ambulance crew here to transport pt. transfer center notified
[2021-10-17 00:36] LABS: Alpha-1-Globulin 0.3 g/dL (0.0-0.4); Gamma Globulin 4.5 g/dL (0.4-1.8); Globulin Total 6.7 g/dL (2.2-3.9); Protein, Total 9.7 g/dL (6.0-8.5)
[2021-10-17 14:15] LABS: Viscosity, Serum 11.5 rel.saline (1.4-2.1)
[2021-11-03 13:29] LABS: Please note NNP
== END 2021-10-14 12:27 | disposition short-term general hospital (02) | DRG 812 ==
LOC: ED 18:22 → AC 20:23
PROVIDERS: Emergency Medicine; Admitting Provider Family Medicine; Emergency Provider Emergency Medicine; PCP Family Medicine; Referring Provider Family Medicine; Visit Provider Family Medicine
DX: D58.8 Other specified hereditary hemolytic anemias (principal); N17.9 Acute kidney failure, unspecified; E83.51 Hypocalcemia; D75.1 Secondary polycythemia; E88.09 Other disorders of plasma-protein metabolism, not elsewhere classified; I10 Essential (primary) hypertension; G47.00 Insomnia, unspecified; E83.42 Hypomagnesemia; F32.9 Major depressive disorder, single episode, unspecified; Z20.822 Contact with and (suspected) exposure to COVID-19; E66.9 Obesity, unspecified; F41.8 Other specified anxiety disorders; R06.02 Shortness of breath
CPT/HCPCS: 36415; 71045; 80053; 82310; 82550; 83690; 83735; 83970; 84100; 84155; 84156; 84165; 84166; 84443; 85007; 85025; 85651; 85810; 86140; 87635; 93005; 93010; 96365; 96366; 96367; 96368; 99284; C9803; G0378; J0610; J3475; J7050

== ENCOUNTER 2021-11-02 17:29 | Emergency (ER) | payer OTHER, SELFPAY ==
[2021-10-12 12:01] VITALS: BMI 29.3
[2021-11-02] VITALS (18 sets, daily range): BP systolic 105–141; BP diastolic 54–68; PULSE 71–87; RESP 15–26; TEMP 37; O2SAT 95–100; BMI 28.2
--- NOTE | 2021-11-02 17:43 | DI.RAD.S_ITS ---
PROCEDURE: XR CHEST 1V INDICATIONS: chest pain TECHNIQUE: One view of the chest was acquired. COMPARISON: [facility], CR, XR CHEST 1V, 10/11/2021, 18:16. FINDINGS: Surgical changes and devices: None. Lungs and pleura: Lungs are clear. No pleural effusions or pneumothorax. Mediastinum: Mediastinal contours appear normal. Heart size is normal. Bones and chest wall: No suspicious bony lesions. Overlying soft tissues appear unremarkable. IMPRESSION: No acute cardiopulmonary pathology. Dictated by: Eldon Peter M.D. on 11/02/2021 at 18:03 Approved by: Eldon Peter M.D. on 11/02/2021 at 18:03
--- NOTE | 2021-11-02 18:11 | ED_ITS ---
HPI - Syncope General Chief Complaint: Syncope Stated Complaint: Syncope when standing up Time Seen by Provider: 11/02/21 18:09 Source: patient Mode of arrival: Wheelchair History of Present Illness HPI narrative: 61F nonsmoker with newly diagnosed hyperviscosity syndrome and atypical blood cancer has received her 1st round of chemotherapy and is currently engaged in discussions with insurance about when her next will be. She presents today with a chief complaint of dizziness and lightheadedness upon standing and multiple near syncopal episodes, each of which were associated with standing and improves when sitting. She denies any recent medication change in his not been otherwise ill. She denies chest pain or shortness of breath. She denies any vomiting or diarrhea. She is had no dietary change. She denies any runny nose, sore throat or cough Related Data Home Medications Medication Instructions Recorded Confirmed Citalopram Hydrobromide 30 mg PO BEDTIME depression ##0 02/03/10 10/12/21 (Citalopram HBr) Zolpidem Tartrate (Ambien) 10 mg PO PRN PRN Insomnia ##0 02/03/10 10/12/21 Previous Rx's Medication Instructions Recorded losartan 50 mg tablet 50 mg PO DAILY #30 tabs 10/13/21 Allergies Allergy/AdvReac Type Severity Reaction Status Date / Time No Known Drug Allergies Allergy Verified 11/02/21 17:45 Review of Systems Review of Systems Narrative: GENERAL: Denies chills, fatigue, malaise, fever, sweats. HEENT: Denies sinus pain, ear pain, sore throat, difficulty swallowing, dizziness. RESPIRATORY: Denies dyspnea, cough, wheezing, hemoptysis, sputum. CARDIOVASCULAR: See HPI GASTROINTESTINAL: Denies nausea, vomiting, abdominal pain, diarrhea, constipation, melena. : Denies dysuria, frequency, incontinence, hematuria, urinary retention. MUSCULOSKELETAL: denies weakness, joint pain, or bony pain SKIN: Denies rash, skin lesions, or other NEUROLOGIC: Denies weakness, headache, numbness, change in speech, confusion, seizures, incoordination. PSYCHIATRIC: No concerning psychosocial issues. 12 point review of systems is negative except for those stated above Patient History Medical History Anemia Anxiety GI bleed Surgical History Status post surgery (02/03/10) Status post surgery (12/02/12) Social History household members: spouse Smoking Status: Never smoker alcohol intake: former Smoking Status: Never smoker alcohol intake frequency: other Substance Use Type: does not use Exam Narrative Exam Narrative: GENERAL: [61] year old patient appears stated age. Well-developed patient, in mild distress. HEAD: Atraumatic. Normocephalic. EYES: Pupils equal round and reactive. Extraocular motions intact. No scleral icterus. No injection or drainage. ENT: Dry mucous membranes Nose without bleeding, purulent drainage. Throat without erythema, tonsillar hypertrophy or exudate. Airway patent. NECK: Trachea midline. Non tender CARDIOVASCULAR: Regular rate and rhythm without murmurs, gallops, or rubs. RESPIRATORY: Clear to auscultation. Breath sounds equal bilaterally. No wheezes, rales, or rhonchi. GASTROINTESTINAL: Abdomen soft, non-tender, nondistended. EXTREMITIES: No edema or joint tenderness. BACK: Nontender without deformity or crepitance. No flank tenderness. NEURO: AOx3. SKIN: Poor skin turgor No rash or erythema of visible areas Initial Vital Signs Initial Vital Signs: Vital Signs Temperature 98.6 F 11/02/21 17:40 Pulse Rate 83 11/02/21 17:40 Respiratory Rate 18 11/02/21 17:40 Blood Pressure 141/66 H 11/02/21 17:40 Pulse Oximetry 98 11/02/21 17:40 Oxygen Delivery Method 11/02/21 17:40 Course Orders Ordered: ED Orders 11/02/21 17:43 XR chest 1V Stat 11/02/21 17:47 EKG-12 Lead Stat 11/02/21 18:03 Complete Blood Count AUTO DIFF Stat Comprehensive Metabolic Panel Stat Lipase Stat Magnesium Stat Troponin & CK Cardiac Panel Stat 11/02/21 18:23 COVID19 -Nasal RAPID/Pre-Proc Stat 11/02/21 18:35 D Dimer Stat Partial Thromboplastin Time Stat Prothrombin Time INR Stat 11/02/21 20:13 Trop I [Troponin I] Stat 11/02/21 20:40 CT angio chest PE protocol Stat Discontinued Medications Sodium Chloride (Normal Saline 0.9%) 1,000 mls @ 1,000 mls/hr IV BOLUS ONE Stop: 11/02/21 20:51 Last Infusion: 11/02/21 21:00 Dose: 0 mls/hr Documented By: Admin: 11/02/21 20:08 Dose: 1,000 mls/hr Documented By: AT Sodium Chloride (Normal Saline 0.9%) 1,000 mls @ 1,000 mls/hr IV BOLUS ONE Stop: 11/02/21 22:44 Last Infusion: 11/02/21 22:50 Dose: 0 mls/hr Documented By: Admin: 11/02/21 21:55 Dose: 1,000 mls/hr Documented By: AT Reevaluation(s) Reevaluation #1: Patient has significant improvement after above-stated therapies, fluid seemed to have significantly improved the way she feels and she is no longer clinically orthostatic and able to stand up, sit down and ambulate without symptoms or any difficulty Vital Signs Vital signs: Vital Signs - 8 hr 11/02/21 17:40 11/02/21 17:40 11/02/21 18:00 Temperature 98.6 F Pulse Rate 83 83 Pulse Rate [Orthostatic Lying] Pulse Rate [Orthostatic Sitting] Pulse Rate [Orthostatic Standing] Respiratory Rate 18 15 Blood Pressure 141/66 H 105/64 Blood Pressure [Orthostatic Lying] Blood Pressure [Orthostatic Sitting] Blood Pressure [Orthostatic Standing] Pulse Oximetry 98 99 Oxygen Delivery Method Room Air 11/02/21 18:00 11/02/21 18:30 11/02/21 19:00 Temperature Pulse Rate 84 83 80 Pulse Rate [Orthostatic Lying] Pulse Rate [Orthostatic Sitting] Pulse Rate [Orthostatic Standing] Respiratory Rate 21 24 20 Blood Pressure Blood Pressure [Orthostatic Lying] Blood Pressure [Orthostatic Sitting] Blood Pressure [Orthostatic Standing] Pulse Oximetry 98 99 97 Oxygen Delivery Method 11/02/21 19:30 11/02/21 19:35 11/02/21 19:35 Temperature Pulse Rate 75 74 Pulse Rate [Orthostatic Lying] Pulse Rate [Orthostatic Sitting] Pulse Rate [Orthostatic Standing] Respiratory Rate 18 15 Blood Pressure 107/61 Blood Pressure [Orthostatic Lying] Blood Pressure [Orthostatic Sitting] Blood Pressure [Orthostatic Standing] Pulse Oximetry 98 99 Oxygen Delivery Method 11/02/21 20:00 11/02/21 20:00 11/02/21 20:30 Temperature Pulse Rate 71 Pulse Rate [Orthostatic Lying] Pulse Rate [Orthostatic Sitting] Pulse Rate [Orthostatic Standing] Respiratory Rate 15 Blood Pressure 120/55 L 129/68 Blood Pressure [Orthostatic Lying] Blood Pressure [Orthostatic Sitting] Blood Pressure [Orthostatic Standing] Pulse Oximetry 100 Oxygen Delivery Method 11/02/21 20:30 11/02/21 21:11 11/02/21 21:30 Temperature Pulse Rate 75 83 78 Pulse Rate [Orthostatic Lying] Pulse Rate [Orthostatic Sitting] Pulse Rate [Orthostatic Standing] Respiratory Rate 15 Blood Pressure Blood Pressure [Orthostatic Lying] Blood Pressure [Orthostatic Sitting] Blood Pressure [Orthostatic Standing] Pulse Oximetry 99 95 98 Oxygen Delivery Method 11/02/21 22:42 11/02/21 21:43 11/02/21 21:43 Temperature Pulse Rate 87 Pulse Rate [Orthostatic Lying] 79 Pulse Rate [Orthostatic Sitting] 80 Pulse Rate [Orthostatic Standing] 82 Respiratory Rate 22 Blood Pressure 120/61 Blood Pressure [Orthostatic Lying] 109/57 L Blood Pressure [Orthostatic Sitting] 110/57 L Blood Pressure [Orthostatic Standing] 116/54 L Pulse Oximetry 98 Oxygen Delivery Method 11/02/21 22:00 11/02/21 22:09 11/02/21 22:09 Temperature Pulse Rate 75 78 Pulse Rate [Orthostatic Lying] Pulse Rate [Orthostatic Sitting] Pulse Rate [Orthostatic Standing] Respiratory Rate 22 16 Blood Pressure 109/57 L Blood Pressure [Orthostatic Lying] Blood Pressure [Orthostatic Sitting] Blood Pressure [Orthostatic Standing] Pulse Oximetry 98 96 Oxygen Delivery Method 11/02/21 22:11 11/02/21 22:11 11/02/21 22:14 Temperature Pulse Rate 80 87 Pulse Rate [Orthostatic Lying] Pulse Rate [Orthostatic Sitting] Pulse Rate [Orthostatic Standing] Respiratory Rate 16 26 H Blood Pressure 110/57 L Blood Pressure [Orthostatic Lying] Blood Pressure [Orthostatic Sitting] Blood Pressure [Orthostatic Standing] Pulse Oximetry 98 99 Oxygen Delivery Method 11/02/21 22:14 11/02/21 22:18 11/02/21 22:18 Temperature Pulse Rate 80 Pulse Rate [Orthostatic Lying] Pulse Rate [Orthostatic Sitting] Pulse Rate [Orthostatic Standing] Respiratory Rate 17 Blood Pressure 116/54 L 132/60 Blood Pressure [Orthostatic Lying] Blood Pressure [Orthostatic Sitting] Blood Pressure [Orthostatic Standing] Pulse Oximetry 99 Oxygen Delivery Method 11/02/21 22:30 Temperature Pulse Rate 75 Pulse Rate [Orthostatic Lying] Pulse Rate [Orthostatic Sitting] Pulse Rate [Orthostatic Standing] Respiratory Rate 21 Blood Pressure Blood Pressure [Orthostatic Lying] Blood Pressure [Orthostatic Sitting] Blood Pressure [Orthostatic Standing] Pulse Oximetry 100 Oxygen Delivery Method MDM - Syncope Lab Data Result diagrams: 11/02/21 18:03 11/02/21 18:03 Labs: Lab Results 11/02/21 11/02/21 11/02/21 Range/Units 18:03 18:03 18:23 WBC 3.0 L (4.5-11.0) X10^3/uL RBC 4.53 (4.0-5.2) X10^6/uL Hgb 13.0 (12.0-16.0) g/dL Hct 38.0 (36-46) % MCV 83.9 (80-100) fL MCH 28.7 (26-34) PG MCHC 34.2 (30-36) % RDW 17.4 H (11.6-14.8) % Plt Count 238 (150-400) X10^3/uL Neut % (Auto) 60.0 (50-75) % Lymph % (Auto) 17.7 L (25-40) % [place] % (Auto) 13.3 (3-14) % Eos % (Auto) 7.9 H (2-4) % Baso % (Auto) 1.1 (0-2) % Neut # (Auto) 1800 (4508-4613) /uL Lymph # (Auto) 500 L (2611-1411) /uL [place] # (Auto) 400 (0-900) /uL Eos # (Auto) 200 (0-450) /uL Baso # (Auto) 0 (0-100) /uL RBC Morphology Normal morphology PT (10.1-12.7) SECONDS INR (0.9-1.3) APTT (26.4-36.2) SECONDS D-Dimer (<230) ng/mL Sodium 137 (137-145) mmol/L Potassium 3.9 (3.4-5.1) mmol/L Chloride 102 (98-107) mmol/L Carbon Dioxide 32 (22-32) mmol/L BUN 18 H (7-17) mg/dL Creatinine 1.06 H (0.52-1.04) mg/dL Estimated GFR > 60 (>60) mL/min BUN/Creatinine Ratio 17.0 (6-22) Glucose 156 H (80-110) mg/dL Calcium 10.1 (8.4-10.2) mg/dL Magnesium 2.3 (1.6-2.3) mg/dL Total Bilirubin 1.2 (0.2-1.3) mg/dL AST 48 H (14-36) IU/L ALT 41 H (<35) IU/L Alkaline Phosphatase 114 (38-126) U/L Total Creatine Kinase 30 (30-135) U/L CK-MB (CK-2) TNP CK-MB (CK-2) Rel Index TNP Troponin I < 0.012 (0.01-0.034) ng/mL Total Protein 8.4 H (6.3-8.2) g/dL Albumin 3.9 (3.5-5.0) g/dL Globulin 4.5 H (1.7-4.1) g/dL Albumin/Globulin Ratio 0.9 L (1.0-2.8) Lipase 277 (23-300) U/L SARS-CoV-2 (PCR) Negative (Negative) 11/02/21 11/02/21 11/02/21 Range/Units 18:35 18:35 20:13 WBC (4.5-11.0) X10^3/uL RBC (4.0-5.2) X10^6/uL Hgb (12.0-16.0) g/dL Hct (36-46) % MCV (80-100) fL MCH (26-34) PG MCHC (30-36) % RDW (11.6-14.8) % Plt Count (150-400) X10^3/uL Neut % (Auto) (50-75) % Lymph % (Auto) (25-40) % [place] % (Auto) (3-14) % Eos % (Auto) (2-4) % Baso % (Auto) (0-2) % Neut # (Auto) (5025-6897) /uL Lymph # (Auto) (5412-3285) /uL [place] # (Auto) (0-900) /uL Eos # (Auto) (0-450) /uL Baso # (Auto) (0-100) /uL RBC Morphology PT 15.2 H (10.1-12.7) SECONDS INR 1.4 H (0.9-1.3) APTT 33 (26.4-36.2) SECONDS D-Dimer < 200 (<230) ng/mL Sodium (137-145) mmol/L Potassium (3.4-5.1) mmol/L Chloride (98-107) mmol/L Carbon Dioxide (22-32) mmol/L BUN (7-17) mg/dL Creatinine (0.52-1.04) mg/dL Estimated GFR (>60) mL/min BUN/Creatinine Ratio (6-22) Glucose (80-110) mg/dL Calcium (8.4-10.2) mg/dL Magnesium (1.6-2.3) mg/dL Total Bilirubin (0.2-1.3) mg/dL AST (14-36) IU/L ALT (<35) IU/L Alkaline Phosphatase (38-126) U/L Total Creatine Kinase (30-135) U/L CK-MB (CK-2) CK-MB (CK-2) Rel Index Troponin I TNP (0.01-0.034) ng/mL Total Protein (6.3-8.2) g/dL Albumin (3.5-5.0) g/dL Globulin (1.7-4.1) g/dL Albumin/Globulin Ratio (1.0-2.8) Lipase (23-300) U/L SARS-CoV-2 (PCR) (Negative) Point of Care Testing Glucose POC [address] scan - chest: Radiologist's Impression: [address] [address] [address] Scan Report Signed Patient: Mauricio Rdz MR#: [id number] : 1960 Acct:[id number] Age/Sex: 61 / F Date of Service: 11/02/21 Loc: ED Accession Number: [id number] ?? Procedure: CT angio chest PE protocol Ordering Provider: Astoria,Clive D.O. PROCEDURE:? CT ANGIO CHEST PE PROTOCOL ? INDICATIONS:? near syncope, chest pain ? TECHNIQUE:? After the administration of intravenous contrast, 2 mm thick sections acquired from the pulmonary apices to the posterior costophrenic angles.? 3-dimensional maximum intensity projection (MIP) coronal and sagittal reformats were then acquired through the thorax.? For radiation dose reduction, the following was used:? automated exposure control, adjustment of mA and/or kV according to patient size.? ? COMPARISON:? None. ? FINDINGS:? Image quality:? Excellent.? ? Pulmonary arteries:? Pulmonary arteries are normal in size, and demonstrate no intraluminal filling defects to suggest central pulmonary embolism.? ? Lower Neck: No lymphadenopathy by size criteria. Thyroid:? Visualized thyroid demonstrates no discrete nodules. Axillae: No lymphadenopathy by size criteria. Chest Wall:? Unremarkable.? Bones: Visualized osseous structures demonstrate no suspicious lesions. ? Lungs and Airways:? No acute consolidation.? There is a right upper lobe 0.4 cm pulmonary nodule on series 5, image 55. Mild dependent atelectasis is demonstrated within the left lung.? The trachea and central airways are patent. Pleura: No pneumothorax or pleural effusions.? ? Heart: Heart size is normal.? No pericardial effusion. Thoracic Vessels: The aorta and pulmonary arteries are normal in size.? Mediastinum and Doris: No lymphadenopathy by size criteria. Esophagus: No wall thickening. No hiatal hernia. ? Abdomen:? Visualized upper abdominal solid organs appear normal in the early arterial phase of enhancement.? ? IMPRESSION:? ? 1. No evidence of pulmonary embolism. ? 2. Right upper lobe 0.4 cm pulmonary nodule is nonspecific.? If patient is at high risk for malignancy, a follow-up CT may be performed in 12 months to demonstrate stability.? ? ? Dictated by: Jessee Richards M.D. on 11/02/2021 at 21:36 ? ? Approved by: Jessee Richards M.D. on 11/02/2021 at 21:40 ? MDM Narrative Medical decision making narrative: Multiple etiologies for patient's symptoms considered including: [Dehydration versus anemia versus pulmonary embolism versus other] Patient's symptoms improved over duration of stay with above-stated therapies. Findings and discharge diagnosis discussed with patient/family followed by ve rbalization of understanding Return precautions discussed with patient/family whom verbalize understanding. Discharge Plan Departure Patient Disposition: Home Clinical Impression: Postural dizziness with near syncope, Pulmonary nodule Instructions: DI for Syncope in Adults (Fainting) Activity Restrictions/Additional Instructions: *You have been diagnosed with [near-syncope likely a consequence of relative dehydration. As we discussed your history and physical exam are reassuring as is your response to therapies. Your lab work is unremarkable and CT scan shows no sign blood clot or pneumonia] *What to do: *Please continue to take your regular medications as directed. [ ] New medication prescriptions sent to your pharmacy: [ ] [ ] New medication written as a paper prescription [ ] No new medications given *Please follow up with your primary care provider in 2-3 days, call for an appointment. Let them know you were seen in the Emergency Department and that we ask that you be seen in follow up. We will electronically transmit a record of today's note if your PCP is in our system *If you do not have a primary care provider please contact the [facility] Resource line at [phone]. They will ask some questions about your medical history and help get you set up with a doctor in the community. *Return to Emergency Department if you should have any new, worsening or concerning symptoms, such as [fever greater than 101 F, shaking chills, worsening pain, persistent vomiting or other bothersome symptoms] Prescriptions: No Action Citalopram Hydrobromide (Citalopram HBr) 30 mg tablet 30 mg PO BEDTIME Qty: 0 Zolpidem Tartrate (Ambien) 10 mg tablet 10 mg PO PRN MDD 10 mg PRN (Reason: Insomnia) Qty: 0 losartan 50 mg Tablet 50 mg PO DAILY Qty: 30 0RF Referrals: Fam Singh MD [Primary Care Provider] - Visit Report Forms: Patient Portal/API
[2021-11-02 18:23] LABS: Alanine Aminotransferase 41 IU/L (<35); Albumin 3.9 g/dL (3.5-5.0); Albumin Globulin Ratio 0.9 (1.0-2.8); Alkaline Phosphatase 114 U/L (38-126); Aspartate Aminotransferase 48 IU/L (14-36); Bilirubin Total 1.2 mg/dL (0.2-1.3); Blood Urea Nitrogen 18 mg/dL (7-17); Calcium 10.1 mg/dL (8.4-10.2); Carbon Dioxide 32 mmol/L (22-32); Chloride 102 mmol/L (98-107); Creatine Kinase 30 U/L (30-135); Estimated Glomerular Filt Rate > 60 mL/min (>60); Globulin 4.5 g/dL (1.7-4.1); Glucose 156 mg/dL (80-110); HEMOLYSIS < 15 (0-50); Lipase 277 U/L (23-300); Magnesium 2.3 mg/dL (1.6-2.3); Potassium 3.9 mmol/L (3.4-5.1); Sodium 137 mmol/L (137-145); Total Protein 8.4 g/dL (6.3-8.2)
[2021-11-02 18:34] LABS: Troponin I < 0.012 ng/mL (0.01-0.034)
[2021-11-02 18:44] LABS: Basophils Absolute Auto 0 /uL (0-100); Basophils Percent Auto 1.1 % (0-2); Eosinophils Absolute Auto 200 /uL (0-450); Eosinophils Percent Auto 7.9 % (2-4); Lymphocytes Absolute Auto 500 /uL (1100-4500); Lymphocytes Percent Auto 17.7 % (25-40); Mean Corpuscular HGB Conc 34.2 % (30-36); Mean Corpuscular Hemoglobin 28.7 PG (26-34); Mean Corpuscular Volume 83.9 fL (80-100); Monocytes Absolute Auto 400 /uL (0-900); Monocytes Percent Auto 13.3 % (3-14); Neutrophils Absolute Auto 1800 /uL (1500-7000); Red Blood Cell Count 4.53 X10^6/uL (4.0-5.2); Red Cell Distribution Width 17.4 % (11.6-14.8)
[2021-11-02 18:49] LABS: COVID19 -Nasal RAPID Negative (Negative)
[2021-11-02 18:54] LABS: INR 1.4 (0.9-1.3); Prothrombin Time 15.2 SECONDS (10.1-12.7)
[2021-11-02 18:57] LABS: PTT Partial Thromboplastin Tim 33 SECONDS (26.4-36.2)
[2021-11-02 19:07] LABS: D Dimer < 200 ng/mL (<230)
[2021-11-02 19:11] LABS: Add Manual Diff / Slide Review SLIDE REVIEW; Platelet Count 238 X10^3/uL (150-400)
[2021-11-02 19:12] LABS: RBC Morphology Normal Morphology
--- NOTE | 2021-11-02 19:40 | PC.NURSE ---
Pt reports worsening lightheadedness, SOB and almost passing out while standing for the past two days. Pt reports recent diagnosis of leukemia and last chemo on October 20. Pt also reports sudden weird right chest pain prior to EKG that lasted about 2 minutes. Pt also reports bright red color in stool yesterday. Encouraged to call for any new or worsening symptoms. Call light within reach.
[2021-11-02] MEDS: SODIUM CHLORIDE 0.9% 1,000 ML 1000 ML IV ×2 (20:08→21:55)
--- NOTE | 2021-11-02 20:15 | PC.NURSE ---
1950: Pt steps out to report pt not feeling well. Pt reports sudden onset of chest pain, headache and pain in left arm. EKG done. MD Campo aware. 1954: Pt requests medication for my anxiety. Notified MD Campo. Pt also reports pressure pushing on back of eyes. Denies change in vision. PERRL. Pt now reports chest pain, headache, and arm pain have all resolved.
--- NOTE | 2021-11-02 20:40 | DI.CT.S_ITS ---
PROCEDURE: CT ANGIO CHEST PE PROTOCOL INDICATIONS: near syncope, chest pain TECHNIQUE: After the administration of intravenous contrast, 2 mm thick sections acquired from the pulmonary apices to the posterior costophrenic angles. 3-dimensional maximum intensity projection (MIP) coronal and sagittal reformats were then acquired through the thorax. For radiation dose reduction, the following was used: automated exposure control, adjustment of mA and/or kV according to patient size. COMPARISON: None. FINDINGS: Image quality: Excellent. Pulmonary arteries: Pulmonary arteries are normal in size, and demonstrate no intraluminal filling defects to suggest central pulmonary embolism. Lower Neck: No lymphadenopathy by size criteria. Thyroid: Visualized thyroid demonstrates no discrete nodules. Axillae: No lymphadenopathy by size criteria. Chest Wall: Unremarkable. Bones: Visualized osseous structures demonstrate no suspicious lesions. Lungs and Airways: No acute consolidation. There is a right upper lobe 0.4 cm pulmonary nodule on series 5, image 55. Mild dependent atelectasis is demonstrated within the left lung. The trachea and central airways are patent. Pleura: No pneumothorax or pleural effusions. Heart: Heart size is normal. No pericardial effusion. Thoracic Vessels: The aorta and pulmonary arteries are normal in size. Mediastinum and Doris: No lymphadenopathy by size criteria. Esophagus: No wall thickening. No hiatal hernia. Abdomen: Visualized upper abdominal solid organs appear normal in the early arterial phase of enhancement. IMPRESSION: 1. No evidence of pulmonary embolism. 2. Right upper lobe 0.4 cm pulmonary nodule is nonspecific. If patient is at high risk for malignancy, a follow-up CT may be performed in 12 months to demonstrate stability. Dictated by: Jessee Richards M.D. on 11/02/2021 at 21:36 Approved by: Jessee Richards M.D. on 11/02/2021 at 21:40
--- NOTE | 2021-11-02 22:45 | PC.NURSE ---
2214: Pt ambulated per provider Alber request. Pt denied chest pain, SOB, dizziness, lightheadedness. Pt steady on feet. Pt walked one loop around ED with this RN and student medic Jose. Notified provider Alber.
== END 2021-11-02 22:55 | disposition home or self-care (01) ==
PROVIDERS: Emergency Medicine; Emergency Provider Emergency Medicine; PCP Family Medicine
DX: R42 Dizziness and giddiness (principal); R91.1 Solitary pulmonary nodule; R07.9 Chest pain, unspecified; Z20.822 Contact with and (suspected) exposure to COVID-19
CPT/HCPCS: 36415; 71045; 71275; 80053; 82550; 83690; 83735; 84484; 85025; 85379; 85610; 85730; 87635; 93005; 93010; 96360; 96361; 99284; C9803; Q9967

== ENCOUNTER 2022-01-09 02:40 | Emergency (ER) | payer OTHER, SELFPAY ==
[2021-10-12 12:01] VITALS: BMI 29.3
[2022-01-09] VITALS (11 sets, daily range): BP systolic 98–123; BP diastolic 54–71; PULSE 68–86; RESP 17–29; TEMP 36.8; O2SAT 95–98; BMI 26.3
--- NOTE | 2022-01-09 02:47 | ED.SOB ---
HPI - SOB/Dyspnea General Chief Complaint: Shortness of Breath/Dyspnea Stated Complaint: sob Time Seen by Provider: 01/09/22 02:43 History of Present Illness HPI Narrative: 61-year-old female nonsmoker with diagnosis of [place]strom macroglobulinemia and recent port placement presents with about 2 weeks of cough and shortness of breath. She states that the cough brings up a discolored sputum that she occasionally chokes on. She is short of breath all the time but seems to get worse with exertion and deep breath. She feels dizzy, lightheaded and fatigued. She denies any fever or chills. She does not take any blood thinners. She was admitted at our facility in early October and subsequently transferred to [facility] where she was admitted for few days receiving fluids, plasmapheresis, consultations for possible chemotherapy as well as vascular surgery for port placement. She's had 3 months of chemo Related Data Home Medications Medication Instructions Recorded Confirmed Citalopram Hydrobromide 30 mg PO BEDTIME depression ##0 02/03/10 10/12/21 (Citalopram HBr) Zolpidem Tartrate (Ambien) 10 mg PO PRN PRN Insomnia ##0 02/03/10 10/12/21 Previous Rx's Medication Instructions Recorded losartan 50 mg tablet 50 mg PO DAILY #30 tabs 10/13/21 benzonatate 200 mg capsule 200 mg PO BID PRN cough #20 caps 01/09/22 doxycycline hyclate 100 mg tablet 100 mg PO BID #20 tabs 01/09/22 promethazine 6.25 mg-codeine 10 5 ml PO Q4-6H PRN cough #473 mL 01/09/22 mg/5 mL syrup Allergies Allergy/AdvReac Type Severity Reaction Status Date / Time No Known Drug Allergies Allergy Verified 11/02/21 17:45 Patient History Medical History Anemia Anxiety GI bleed Surgical History Status post surgery (02/03/10) Status post surgery (12/02/12) Social History household members: spouse Smoking Status: Never smoker alcohol intake: former Smoking Status: Never smoker alcohol intake frequency: other Substance Use Type: does not use Exam Initial Vital Signs Initial Vital Signs: Vital Signs Temperature 98.3 F 01/09/22 02:44 Pulse Rate 81 01/09/22 02:44 Respiratory Rate 17 01/09/22 02:44 Blood Pressure 123/60 01/09/22 02:44 Pulse Oximetry 98 01/09/22 02:44 Oxygen Delivery Method 01/09/22 02:44 Course Orders Ordered: ED Orders 01/09/22 03:30 COVID19 -Nasal RAPID/Pre-Proc Stat 01/09/22 03:35 Complete Blood Count AUTO DIFF Stat Comprehensive Metabolic Panel Stat D Dimer Stat Lactate (Lactic Acid) Stat Magnesium Stat NT-proBNP (BNP-Adult 18+) Stat Procalcitonin Stat Troponin & CK Cardiac Panel Stat 01/09/22 04:00 Blood Culture Stat 01/09/22 04:24 CT angio chest PE protocol Stat 01/09/22 05:00 Urine Culture Stat Urine Microscopic Stat Discontinued Medications Acetaminophen/Codeine Phosphate (Acetaminophen/Codeine Soln 5 Ml Solution) 5 ml PO NOW ONE Stop: 01/09/22 06:00 Last Admin: 01/09/22 06:08 Dose: 5 ml Albuterol (Albuterol Hfa Prepack) 1 box MISC SEEINSTR ONE Stop: 01/09/22 06:00 Last Admin: 01/09/22 06:23 Dose: 1 box Doxycycline Hyclate (Doxycycline Hyclate 100 Mg Tablet) 100 mg PO NOW ONE Stop: 01/09/22 06:00 Last Admin: 01/09/22 06:08 Dose: 100 mg Sodium Chloride (Normal Saline 0.9%) 1,000 mls @ 1,000 mls/hr IV BOLUS ONE Stop: 01/09/22 03:58 Last Infusion: 01/09/22 05:28 Dose: 0 mls/hr Documented By: Admin: 01/09/22 03:32 Dose: 1,000 mls/hr Documented By: ANDER Vital Signs Vital signs: Vital Signs - 8 hr 01/09/22 02:44 01/09/22 02:51 01/09/22 02:52 Temperature 98.3 F Pulse Rate 81 86 83 Respiratory Rate 17 29 H 21 Blood Pressure 123/60 Pulse Oximetry 98 Oxygen Delivery Method Room Air 01/09/22 02:52 01/09/22 03:00 01/09/22 03:00 Temperature Pulse Rate 76 Respiratory Rate 27 H Blood Pressure 119/59 L 113/59 L Pulse Oximetry Oxygen Delivery Method 01/09/22 03:30 01/09/22 03:30 01/09/22 04:00 Temperature Pulse Rate 80 Respiratory Rate 24 Blood Pressure 114/64 110/71 Pulse Oximetry Oxygen Delivery Method 01/09/22 04:00 01/09/22 04:30 01/09/22 04:30 Temperature Pulse Rate 80 78 Respiratory Rate 26 H Blood Pressure 98/54 L Pulse Oximetry Oxygen Delivery Method 01/09/22 05:13 01/09/22 05:14 01/09/22 05:14 Temperature Pulse Rate 75 74 Respiratory Rate 27 H 21 Blood Pressure 107/56 L Pulse Oximetry 95 Oxygen Delivery Method 01/09/22 05:30 01/09/22 05:30 Temperature Pulse Rate 77 Respiratory Rate 20 Blood Pressure 106/59 L Pulse Oximetry 95 Oxygen Delivery Method MDM - SOB/Dyspnea Lab Data Result diagrams: 01/09/22 03:35 01/09/22 03:35 Labs: Lab Results 01/09/22 01/09/22 01/09/22 Range/Units 03:30 03:35 03:35 WBC (4.5-11.0) X10^3/uL RBC (4.0-5.2) X10^6/uL Hgb (12.0-16.0) g/dL Hct (36-46) % MCV (80-100) fL MCH (26-34) PG MCHC (30-36) % RDW (11.6-14.8) % Plt Count (150-400) X10^3/uL Neut % (Auto) (50-75) % Lymph % (Auto) (25-40) % [place] % (Auto) (3-14) % Eos % (Auto) (2-4) % Baso % (Auto) (0-2) % Neut # (Auto) (1882-1733) /uL Lymph # (Auto) (5779-2017) /uL [place] # (Auto) (0-900) /uL Eos # (Auto) (0-450) /uL Baso # (Auto) (0-100) /uL D-Dimer 1354 H (<500) ng/ml Sodium (137-145) mmol/L Potassium (3.4-5.1) mmol/L Chloride (98-107) mmol/L Carbon Dioxide (22-32) mmol/L BUN (7-17) mg/dL Creatinine (0.52-1.04) mg/dL Estimated GFR (>60) mL/min BUN/Creatinine Ratio (6-22) Glucose (80-110) mg/dL Lactate (0.7-2.1) mmol/L Calcium (8.4-10.2) mg/dL Magnesium (1.6-2.3) mg/dL Total Bilirubin (0.2-1.3) mg/dL AST (14-36) IU/L ALT (<35) IU/L Alkaline Phosphatase (38-126) U/L Total Creatine Kinase (30-135) U/L CK-MB (CK-2) CK-MB (CK-2) Rel Index Troponin I (0.01-0.034) ng/mL NT-Pro-B Natriuret Pep (<125) pg/mL Total Protein (6.3-8.2) g/dL Albumin (3.5-5.0) g/dL Globulin (1.7-4.1) g/dL Albumin/Globulin Ratio (1.0-2.8) Procalcitonin 0.17 (<0.5) ng/mL Urine RBC (0-5/HPF) Urine WBC (0-5/HPF) Urine Bacteria (None) Ur Culture Indicated? Micro UA Comment SARS-CoV-2 (PCR) Negative (Negative) 01/09/22 01/09/22 01/09/22 Range/Units 03:35 03:35 03:35 WBC 2.7 L (4.5-11.0) X10^3/uL RBC 3.75 L (4.0-5.2) X10^6/uL Hgb 11.0 L (12.0-16.0) g/dL Hct 31.5 L (36-46) % MCV 83.9 (80-100) fL MCH 29.2 (26-34) PG MCHC 34.8 (30-36) % RDW 15.3 H (11.6-14.8) % Plt Count 140 L (150-400) X10^3/uL Neut % (Auto) 61.4 (50-75) % Lymph % (Auto) 10.5 L (25-40) % [place] % (Auto) 16.9 H (3-14) % Eos % (Auto) 9.5 H (2-4) % Baso % (Auto) 1.7 (0-2) % Neut # (Auto) 1700 (9126-6867) /uL Lymph # (Auto) 300 L (3049-5831) /uL [place] # (Auto) 500 (0-900) /uL Eos # (Auto) 300 (0-450) /uL Baso # (Auto) 0 (0-100) /uL D-Dimer (<500) ng/ml Sodium 135 L (137-145) mmol/L Potassium 3.4 (3.4-5.1) mmol/L Chloride 101 (98-107) mmol/L Carbon Dioxide 30 (22-32) mmol/L BUN 10 (7-17) mg/dL Creatinine 0.83 (0.52-1.04) mg/dL Estimated GFR > 60 (>60) mL/min BUN/Creatinine Ratio 12.0 (6-22) Glucose 134 H (80-110) mg/dL Lactate 1.7 (0.7-2.1) mmol/L Calcium 8.5 (8.4-10.2) mg/dL Magnesium 1.7 (1.6-2.3) mg/dL Total Bilirubin 0.4 (0.2-1.3) mg/dL AST 43 H (14-36) IU/L ALT 36 H (<35) IU/L Alkaline Phosphatase 118 (38-126) U/L Total Creatine Kinase 54 (30-135) U/L CK-MB (CK-2) TNP CK-MB (CK-2) Rel Index TNP Troponin I < 0.012 (0.01-0.034) ng/mL NT-Pro-B Natriuret Pep 344 H (<125) pg/mL Total Protein 6.8 (6.3-8.2) g/dL Albumin 3.4 L (3.5-5.0) g/dL Globulin 3.4 (1.7-4.1) g/dL Albumin/Globulin Ratio 1.0 (1.0-2.8) Procalcitonin (<0.5) ng/mL Urine RBC (0-5/HPF) Urine WBC (0-5/HPF) Urine Bacteria (None) Ur Culture Indicated? Micro UA Comment SARS-CoV-2 (PCR) (Negative) 01/09/22 Range/Units 05:00 WBC (4.5-11.0) X10^3/uL RBC (4.0-5.2) X10^6/uL Hgb (12.0-16.0) g/dL Hct (36-46) % MCV (80-100) fL MCH (26-34) PG MCHC (30-36) % RDW (11.6-14.8) % Plt Count (150-400) X10^3/uL Neut % (Auto) (50-75) % Lymph % (Auto) (25-40) % [place] % (Auto) (3-14) % Eos % (Auto) (2-4) % Baso % (Auto) (0-2) % Neut # (Auto) (0417-5776) /uL Lymph # (Auto) (4019-0335) /uL [place] # (Auto) (0-900) /uL Eos # (Auto) (0-450) /uL Baso # (Auto) (0-100) /uL D-Dimer (<500) ng/ml Sodium (137-145) mmol/L Potassium (3.4-5.1) mmol/L Chloride (98-107) mmol/L Carbon Dioxide (22-32) mmol/L BUN (7-17) mg/dL Creatinine (0.52-1.04) mg/dL Estimated GFR (>60) mL/min BUN/Creatinine Ratio (6-22) Glucose (80-110) mg/dL Lactate (0.7-2.1) mmol/L Calcium (8.4-10.2) mg/dL Magnesium (1.6-2.3) mg/dL Total Bilirubin (0.2-1.3) mg/dL AST (14-36) IU/L ALT (<35) IU/L Alkaline Phosphatase (38-126) U/L Total Creatine Kinase (30-135) U/L CK-MB (CK-2) CK-MB (CK-2) Rel Index Troponin I (0.01-0.034) ng/mL NT-Pro-B Natriuret Pep (<125) pg/mL Total Protein (6.3-8.2) g/dL Albumin (3.5-5.0) g/dL Globulin (1.7-4.1) g/dL Albumin/Globulin Ratio (1.0-2.8) Procalcitonin (<0.5) ng/mL Urine RBC None seen (0-5/HPF) Urine WBC 0-1/hpf (0-5/HPF) Urine Bacteria None seen (None) Ur Culture Indicated? Specimen cultured Micro UA Comment * SARS-CoV-2 (PCR) (Negative) Urine Dip Bedside Urine Glucose Negative Bedside Urine Bilirubin - Negative Bedside Urine Ketone - Negative Urine Specific [place] 6.0 Bedside Urine Occult Blood - Negative Bedside Urine pH 6.0 Bedside Urine Protein - Negative Bedside Urine Urobilinogen - Negative Bedside Urine Nitrite - Negative Bedside Urine Leukocytes + [address] scan - chest: Radiologist's Impression: No embolism, dissection or aneurysm MDM Narrative Medical decision making narrative: Patient with increasing harsh and productive cough over the past 2 weeks. She denies fever chills but is short of breath. She states that it deep breath makes her more likely to cough. Labs are reassuring and imaging would suggest no pulmonary embolism or obvious infiltrate. Given the duration of her symptoms and clinical presentation we will treat for an atypical pneumonia. She is been given return precautions and questions have been answered to her apparent satisfaction Discharge Plan Departure Patient Disposition: Home Clinical Impression: Atypical pneumonia Instructions: DI for Atypical Pneumonia Activity Restrictions/Additional Instructions: *You have been diagnosed with [atypical pneumonia] *What to do: *Please continue to take your regular medications as directed. [x ] New medication prescriptions sent to your pharmacy: [ [facility]] [ ] New medication written as a paper prescription [ ] No new medications given * please follow-up with your primary care doctor in the next few days, call later this morning and let them know that you were seen in the emergency department and we would like you to be seen in follow-up *Return to Emergency Department if you should have any new, worsening or concerning symptoms, such as [fever greater than 101 F, shaking chills, worsening pain, persistent vomiting or other bothersome symptoms] Prescriptions: New doxycycline hyclate 100 mg tablet 100 mg PO BID Qty: 20 0RF benzonatate 200 mg capsule 200 mg PO BID PRN (Reason: cough) Qty: 20 0RF promethazine-codeine 6.25-10 mg/5 mL syrup 5 ml PO Q4-6H PRN (Reason: cough) Qty: 473 0RF No Action Citalopram Hydrobromide (Citalopram HBr) 30 mg tablet 30 mg PO BEDTIME Qty: 0 Zolpidem Tartrate (Ambien) 10 mg tablet 10 mg PO PRN MDD 10 mg PRN (Reason: Insomnia) Qty: 0 losartan 50 mg Tablet 50 mg PO DAILY Qty: 30 0RF Referrals: Fam Singh MD [Primary Care Provider] - Visit Report Forms: Patient Portal/API
[2022-01-09] MEDS: LIDOCAINE 1% (PF) 2 ML (03:32)
[2022-01-09] MEDS: SODIUM CHLORIDE 0.9% 1,000 ML 1000 ML IV (03:32)
[2022-01-09 03:54] LABS: Add Manual Diff / Slide Review NO; Basophils Absolute Auto 0 /uL (0-100); Basophils Percent Auto 1.7 % (0-2); Eosinophils Absolute Auto 300 /uL (0-450); Eosinophils Percent Auto 9.5 % (2-4); Hematocrit 31.5 % (36-46); Lymphocytes Absolute Auto 300 /uL (1100-4500); Lymphocytes Percent Auto 10.5 % (25-40); Mean Corpuscular HGB Conc 34.8 % (30-36); Mean Corpuscular Hemoglobin 29.2 PG (26-34); Mean Corpuscular Volume 83.9 fL (80-100); Monocytes Absolute Auto 500 /uL (0-900); Monocytes Percent Auto 16.9 % (3-14); Neutrophils Absolute Auto 1700 /uL (1500-7000); Neutrophils Percent Auto 61.4 % (50-75); Platelet Count 140 X10^3/uL (150-400); Red Blood Cell Count 3.75 X10^6/uL (4.0-5.2); Red Cell Distribution Width 15.3 % (11.6-14.8); White Blood Cell Count 2.7 X10^3/uL (4.5-11.0)
[2022-01-09 03:59] LABS: D Dimer 1354 ng/ml (<500)
[2022-01-09 04:00] LABS: Lactate (Lactic Acid) 1.7 mmol/L (0.7-2.1)
[2022-01-09 04:02] LABS: Alanine Aminotransferase 36 IU/L (<35); Albumin 3.4 g/dL (3.5-5.0); Alkaline Phosphatase 118 U/L (38-126); Aspartate Aminotransferase 43 IU/L (14-36); Bilirubin Total 0.4 mg/dL (0.2-1.3); Blood Urea Nitrogen 10 mg/dL (7-17); Calcium 8.5 mg/dL (8.4-10.2); Carbon Dioxide 30 mmol/L (22-32); Chloride 101 mmol/L (98-107); Creatine Kinase 54 U/L (30-135); Estimated Glomerular Filt Rate > 60 mL/min (>60); Globulin 3.4 g/dL (1.7-4.1); Glucose 134 mg/dL (80-110); HEMOLYSIS < 15 (0-50); Magnesium 1.7 mg/dL (1.6-2.3); Potassium 3.4 mmol/L (3.4-5.1); Sodium 135 mmol/L (137-145); Total Protein 6.8 g/dL (6.3-8.2)
[2022-01-09 04:09] LABS: COVID19 -Nasal RAPID Negative (Negative)
[2022-01-09 04:14] LABS: NT-proBNP (BNP-Adult 18+) 344 pg/mL (<125); Troponin I < 0.012 ng/mL (0.01-0.034)
[2022-01-09 04:18] LABS: Procalcitonin 0.17 ng/mL (<0.5)
--- NOTE | 2022-01-09 04:24 | DI.CT.S_ITS ---
PROCEDURE: CT ANGIO CHEST PE PROTOCOL INDICATIONS: cough, recent cancer dx, recent port, chemo TECHNIQUE: After the administration of intravenous contrast, 2 mm thick sections acquired from the pulmonary apices to the posterior costophrenic angles. 3-dimensional maximum intensity projection (MIP) coronal and sagittal reformats were then acquired through the thorax. For radiation dose reduction, the following was used: automated exposure control, adjustment of mA and/or kV according to patient size. COMPARISON: [facility], CT, CT ANGIO CHEST PE PROTOCOL, 11/02/2021, 20:57. FINDINGS: Image quality: Excellent. Pulmonary arteries: Pulmonary arteries are normal in size, and demonstrate no intraluminal filling defects to suggest central pulmonary embolism. Lungs and pleura: Dependent atelectasis in posterior aspect of bilateral lung bases are seen. 4-5 mm solid nodule in lateral periphery of right upper lobe near apex is noted series 5, image 55. No pleural effusions or pneumothorax. Central and peripheral airways are patent. Mediastinum: Heart size is normal. Trace amount of pericardial effusion is seen. No mediastinal or hilar adenopathy. Thoracic aorta is normal in caliber and enhancement. Esophagus is normal in caliber, without hiatal hernia. Bones and chest wall: Right chest wall Port-A-Cath tip is in SVC. No suspicious bony lesions. No acute vertebral body compression fracture. Degenerative disc disease throughout thoracic spine is seen. Thyroid gland new is within normal limits. No axillary or supraclavicular adenopathy. Abdomen: Visualized upper abdominal solid organs appear normal in the early arterial phase of enhancement. IMPRESSION: 1. No evidence of pulmonary emboli. No thoracic aortic aneurysm or dissection. 2. Stable 4-5 mm solid nodule in lateral right upper lobe unchanged from previous study. Dependent atelectasis in posterior aspect of bilateral lower lung boss. No pleural effusion or pneumothorax. 3. No mediastinal or hilar lymphadenopathy by size criteria. Trace pericardial effusion. Dictated by: Eldon Peter M.D. on 01/09/2022 at 8:10 Approved by: Eldon Peter M.D. on 01/09/2022 at 8:14
[2022-01-09 05:44] LABS: Bacteria Urine None Seen; Culture Indicated Urine Specimen Cultured; RBC Urine None Seen (0-5/HPF); WBC Urine 0-1/HPF (0-5/HPF)
[2022-01-09] MEDS: DOXYCYCLINE HYCLATE 100 MG TABLET PO (06:08)
[2022-01-09] MEDS: ACETAMINOPHEN/CODEINE SOLN 5 ML SOLUTION PO (06:08)
[2022-01-09] MEDS: ALBUTEROL HFA PREPACK 1 BOX MISC (06:23)
[2022-01-12 23:34] LABS: Acinetobacter baumannii Not Detected (Not Detect); E. coli Not Detected (Not Detect); Enterobacter cloacae complex Not Detected (Not Detect); Enterobacteriaceae species Not Detected (Not Detect); Enterococcus species Not Detected (Not Detect); Listeria monocytogenes Not Detected (Not Detect); Staphylococcus species Not Detected (Not Detect); Streptococcus agalactiae (Gr B Not Detected (Not Detect); Streptococcus pneumonia Not Detected (Not Detect); Streptococcus pyogenes (Gr A) Not Detected (Not Detect); Streptococcus species Not Detected (Not Detect)
[2022-01-12 23:35] LABS: Candida albicans Not Detected (Not Detect); Candida glabrata Not Detected (Not Detect); Candida krusei Not Detected (Not Detect); Candida parapsilosis Not Detected (Not Detect); Candida tropicalis Not Detected (Not Detect); Haemophilus influenzae Not Detected (Not Detect); Neisseria meningitidis Not Detected (Not Detect); Proteus species Not Detected (Not Detect); Pseudomonas aeruginosa Not Detected (Not Detect); Serratia marcescens Not Detected (Not Detect)
== END 2022-01-09 06:37 | disposition home or self-care (01) ==
PROVIDERS: Emergency Provider Emergency Medicine; PCP Family Medicine
DX: J18.9 Pneumonia, unspecified organism (principal); Z20.822 Contact with and (suspected) exposure to COVID-19
CPT/HCPCS: 71275; 80053; 81003; 81015; 82550; 83605; 83735; 83880; 84145; 84484; 85025; 85379; 87040; 87086; 87150; 87635; 99284; C9803; J1642; Q9967

== ENCOUNTER 2022-05-07 02:18 | Emergency (ER) | payer OTHER, SELFPAY ==
[2021-10-12 12:01] VITALS: BMI 29.3
[2022-05-07 02:28] VITALS: BP 135/93; PULSE 90; RESP 30; TEMP 36.5; O2SAT 99; BMI 25.0
--- NOTE | 2022-05-07 02:30 | DI.RAD.S_ITS ---
PROCEDURE: XR CHEST 1V INDICATIONS: Shortness of breath TECHNIQUE: One view of the chest was acquired. COMPARISON: [facility], CR, XR CHEST 1 VIEW, 12/20/2021, 10:55. [facility], CR, XR CHEST 1V, 11/02/2021, 17:46. FINDINGS: Surgical changes and devices: Right chest Port-A-Cath is seen in stable position with catheter tip near the superior cavoatrial junction. Lungs and pleura: Lungs are clear. No pleural effusions or pneumothorax. Mediastinum: Mediastinal contours appear normal. Heart size is normal. Bones and chest wall: No suspicious bony lesions. Overlying soft tissues appear unremarkable. IMPRESSION: No acute cardiopulmonary abnormality. There is no significant discrepancy when compared to the overnight preliminary report. Approved by: Tal Soto M.D. on 05/07/2022 at 7:51
--- NOTE | 2022-05-07 03:01 | ED.GENADULT ---
HPI - General Adult General Chief complaint: Shortness of Breath/Dyspnea Stated complaint: SOB Time Seen by Provider: 05/07/22 02:29 Source: patient Mode of arrival: Ambulatory Limitations: no limitations History of Present Illness HPI narrative: Patient is a 61-year-old female. Does have a history of leukemia. Finished her last course of chemotherapy last month. Has a follow-up later this month for further evaluation. Three days ago started having a rash and burning to her left side/flank. She contacted her primary doctor who thought that she described the symptoms that were consistent with shingles. She is not been evaluated for this specifically. She is a follow-up tomorrow with her primary doctor. Despite not having a visual appointment she was started on antivirals. She is taken a total of 3 doses of this. She is had progressively worsening deep pain under the rash on the left side. It is causing her to some shortness of breath. She denies any fevers. She does not have any pain medications. Related Data Home Medications Medication Instructions Recorded Confirmed Citalopram Hydrobromide 30 mg PO BEDTIME depression ##0 02/03/10 10/12/21 (Citalopram HBr) Zolpidem Tartrate (Ambien) 10 mg PO PRN PRN Insomnia ##0 02/03/10 10/12/21 Previous Rx's Medication Instructions Recorded losartan 50 mg tablet 50 mg PO DAILY #30 tabs 10/13/21 benzonatate 200 mg capsule 200 mg PO BID PRN cough #20 caps 01/09/22 doxycycline hyclate 100 mg tablet 100 mg PO BID #20 tabs 01/09/22 promethazine 6.25 mg-codeine 10 5 ml PO Q4-6H PRN cough #473 mL 01/09/22 mg/5 mL syrup Allergies Allergy/AdvReac Type Severity Reaction Status Date / Time No Known Drug Allergies Allergy Verified 11/02/21 17:45 Review of Systems Constitutional Constitutional: Reports system reviewed and no additional complaints, except as documented Respiratory Respiratory: Reports system reviewed and no additional complaints, except as documented Integumentary/Breasts Skin/Breast: Reports system reviewed and no additional complaints, except as documented Neurologic Neurologic: Reports system reviewed and no additional complaints, except as documented Patient History Medical History Anemia Anxiety GI bleed Surgical History Status post surgery (02/03/10) Status post surgery (12/02/12) Social History household members: spouse Smoking Status: Never smoker alcohol intake: former Smoking Status: Never smoker alcohol intake frequency: other Substance Use Type: does not use Exam Initial Vital Signs Initial Vital Signs: Vital Signs Temperature 97.7 F 05/07/22 02:28 Pulse Rate 90 05/07/22 02:28 Respiratory Rate 30 H 05/07/22 02:28 Blood Pressure 135/93 H 05/07/22 02:28 Pulse Oximetry 99 05/07/22 02:28 Oxygen Delivery Method 05/07/22 02:28 Const General: cooperative and No ill appearing HENMT Head: normal to inspection and normocephalic Resp Effort & Inspection: normal respiratory effort Auscultation: clear to auscultation bilaterally Cardio Rate: regular rate Rhythm: regular rhythm Skin Other: Patient with a vesicular rash on her left back and flank that is consistent with zoster. Extrem General: normal to inspection and capillary refill normal Course Orders Ordered: ED Orders 05/07/22 02:30 XR chest 1V Stat EKG-12 Lead Stat Discontinued Medications Hydrocodone Bitart/Acetaminophen (Hydrocodone/Acet 5/325 Prepack) 1 bottle MISC SEEINSTR ONE Stop: 05/07/22 03:02 Last Admin: 05/07/22 03:06 Dose: 1 bottle Vital Signs Vital signs: Vital Signs - 8 hr 05/07/22 02:28 Temperature 97.7 F Pulse Rate 90 Respiratory Rate 30 H Blood Pressure 135/93 H Pulse Oximetry 99 Oxygen Delivery Method Room Air Medical Decision Making Differential Diagnosis Differential Diagnosis: PE, ACS, cellulitis, pneumonia, neuropathy, and others Imaging Data Chest x-ray: Attestation: I personally reviewed and interpreted this imaging study as follows: My Impression: Port in right upper chest but no acute pathology Radiologist's Impression: No acute abnormality ECG Data Attestation: I personally reviewed and interpreted this ECG as follows: Interpretation: Sinus rhythm Ventricular rate is 79 Normal axis Normal QRS Normal QTC No ST T wave changes MDM Narrative Medical decision making narrative: She does have a rash that is consistent with shingles. She is currently on antivirals and has a follow-up later today with her primary doctor. The discomfort is located under this rash. Her chest x-ray is negative. EKG is unremarkable. I have low suspicion that this is ACS. Very high suspicion that her symptoms is related to the shingles. Will start her on pain medication. She will talk with her primary doctor about extending this if needed. No further radiologic studies needed. She was given return precautions. She expressed understanding and agreement. Discharge Plan Departure Patient Disposition: Home Clinical Impression: Shingles Instructions: Shingles (Herpes Zoster) (Alternative Therapy), DI for Shingles Activity Restrictions/Additional Instructions: Recommend that you keep your scheduled appointment later today with your primary doctor. Use the pain medication as needed. Continue to take the antiviral medicine that was prescribed by your primary doctor. Return to the emergency department for any new symptoms. Prescriptions: No Action Citalopram Hydrobromide (Citalopram HBr) 30 mg tablet 30 mg PO BEDTIME Qty: 0 Zolpidem Tartrate (Ambien) 10 mg tablet 10 mg PO PRN MDD 10 mg PRN (Reason: Insomnia) Qty: 0 losartan 50 mg Tablet 50 mg PO DAILY Qty: 30 0RF doxycycline hyclate 100 mg tablet 100 mg PO BID Qty: 20 0RF benzonatate 200 mg capsule 200 mg PO BID PRN (Reason: cough) Qty: 20 0RF promethazine-codeine 6.25-10 mg/5 mL syrup 5 ml PO Q4-6H PRN (Reason: cough) Qty: 473 0RF Referrals: Fam Singh MD [Primary Care Provider] - Stand Alone Forms: Patient Portal/API
[2022-05-07] MEDS: HYDROCODONE/ACET 5/325 PREPACK 1 BOTTLE MISC (03:06)
== END 2022-05-07 03:11 | disposition home or self-care (01) ==
PROVIDERS: Emergency Provider Emergency Medicine; PCP Family Medicine
DX: B02.9 Zoster without complications (principal); R06.02 Shortness of breath; R03.0 Elevated blood-pressure reading, without diagnosis of hypertension
CPT/HCPCS: 71045; 93005; 99281; 99283

== ENCOUNTER 2022-09-22 14:40 | Emergency (ER) | payer OTHER, SELFPAY ==
[2021-10-12 12:01] VITALS: BMI 29.3
[2022-09-22] VITALS (14 sets, daily range): BP systolic 114–148; BP diastolic 58–70; PULSE 67–88; RESP 16–54; TEMP 36.6; O2SAT 96–100
--- NOTE | 2022-09-22 14:50 | DI.RAD.S_ITS ---
PROCEDURE: XR CHEST 2V INDICATIONS: SOB TECHNIQUE: 2 views of the chest were acquired. COMPARISON: [facility], , XR CHEST 1V, 05/07/2022, 2:27. FINDINGS: Surgical changes and devices: Right-sided Port-A-Cath in place Lungs and pleura: Lungs are clear. No pleural effusions or pneumothorax. Mediastinum: Mediastinal contours are normal. Heart size is normal. Bones and chest wall: No suspicious bony abnormalities. Soft tissues appear unremarkable. IMPRESSION: No acute cardiopulmonary findings Approved by: Aubrey Wall M.D. on 09/22/2022 at 15:21
[2022-09-22 15:21] LABS: Add Manual Diff / Slide Review NO; Basophils Absolute Auto 0 /uL (0-100); Basophils Percent Auto 0.6 % (0-2); Eosinophils Absolute Auto 200 /uL (0-450); Eosinophils Percent Auto 3.9 % (2-4); Hematocrit 34.4 % (36-46); Hemoglobin 11.7 g/dL (12.0-16.0); Lymphocytes Absolute Auto 400 /uL (1100-4500); Lymphocytes Percent Auto 9.2 % (25-40); Mean Corpuscular Hemoglobin 30.4 PG (26-34); Mean Corpuscular Volume 89.4 fL (80-100); Monocytes Absolute Auto 300 /uL (0-900); Monocytes Percent Auto 7.3 % (3-14); Neutrophils Absolute Auto 3600 /uL (1500-7000); Platelet Count 250 X10^3/uL (150-400); Red Blood Cell Count 3.85 X10^6/uL (4.0-5.2); Red Cell Distribution Width 13.9 % (11.6-14.8); White Blood Cell Count 4.6 X10^3/uL (4.5-11.0)
[2022-09-22] MEDS: SODIUM CHLORIDE 0.9% 1,000 ML 1000 ML IV (15:31)
[2022-09-22 15:36] LABS: Lactate (Lactic Acid) 1.6 mmol/L (0.7-2.1)
[2022-09-22 15:37] LABS: Alanine Aminotransferase 38 IU/L (<35); Albumin 3.8 g/dL (3.5-5.0); Albumin Globulin Ratio 1.3 (1.0-2.8); Alkaline Phosphatase 122 U/L (38-126); Aspartate Aminotransferase 42 IU/L (14-36); BUN Creatinine Ratio 15.1 (6-22); Bilirubin Total 0.5 mg/dL (0.2-1.3); Blood Urea Nitrogen 11 mg/dL (7-17); Calcium 8.5 mg/dL (8.4-10.2); Carbon Dioxide 28 mmol/L (22-32); Chloride 102 mmol/L (98-107); Estimated Glomerular Filt Rate > 60 mL/min (>60); Globulin 2.9 g/dL (1.7-4.1); Glucose 158 mg/dL (80-110); Magnesium 1.9 mg/dL (1.6-2.3); Potassium 3.9 mmol/L (3.4-5.1); Sodium 137 mmol/L (137-145); Total Protein 6.7 g/dL (6.3-8.2)
[2022-09-22] MEDS: ALBUTEROL/IPRATROPIUM 3 ML AMPUL INH (15:38)
[2022-09-22 15:44] LABS: HEMOLYSIS 78 (0-50)
[2022-09-22 15:46] LABS: NT-proBNP (BNP-Adult 18+) 432 pg/mL (<125)
[2022-09-22 15:54] LABS: Procalcitonin 0.06 ng/mL (<0.5)
--- NOTE | 2022-09-22 16:11 | PC.NURSE ---
While pt was in restroom, she started crying. states that her legs are weak. reports this is how her cancer started. wheelchair pt back to room. pt was tearful with me and her . emotional support to patient and . placed on heart monitor. vital signs stable.
[2022-09-22 16:12] LABS: Adenovirus Not Detected (Not Detect); B. parapertussis Not Detected (Not Detecte); Bordetella pertussis Not Detected (Not Detecte); Chlamydophila pneumoniae Not Detected (Not Detect); Coronavirus 229E Not Detected (Not Detect); Coronavirus HKU1 Not Detected (Not Detect); Coronavirus NL 63 Not Detected (Not Detect); Coronavirus OC43 Not Detected (Not Detect); Human Metapneumovirus Not Detected (Not Detect); Human Rhinovirus/Enterovirus Not Detected (Not Detect); Influenza A Not Detected (Not Detect); Influenza B Not Detected (Not Detect); Mycoplasma pneumoniae Not Detected (Not Detect); Parainfluenza Virus 1 Not Detected (Not Detect); Parainfluenza Virus 2 Not Detected (Not Detect); Parainfluenza Virus 3 Not Detected (Not Detect); Parainfluenza Virus 4 Not Detected (Not Detect); Respiratory Syncytial Virus Not Detected (Not Detect); SARS- CoV-2 Not Detected (Not Detecte)
--- NOTE | 2022-09-22 16:33 | PC.NURSE ---
Patient presents in the hallway she is having an episode Patient reports numbness and tingling, patient is hyperventilating. Encouraged patient to slow down her breaths, replaced pulse ox with sticker for better capture. Patient's states patient almost passed out in the bathroom, she states her legs just felt like they were giving out. 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
--- NOTE | 2022-09-22 16:43 | ED.GENADULT ---
HPI - General Adult General Chief complaint: Weakness Stated complaint: SOB, lethargic, numbness in legs and arms Time Seen by Provider: 09/22/22 14:45 History of Present Illness HPI narrative: 61-year-old female nonsmoker with diagnosis of Waldenstrom macroglobulinemia and recent port placement presents with about 3 days of cough and shortness of breath. She denies any fever or chills. She is had the occasional runny nose and nasal congestion but no sore throat. She denies headache or blurred vision. She denies nausea, vomiting or diarrhea. She denies any change in medications or diet. She is had no recent travel or exposure to other obviously ill persons Related Data Home Medications Medication Instructions Recorded Confirmed Citalopram Hydrobromide 30 mg PO BEDTIME depression ##0 02/03/10 10/12/21 (Citalopram HBr) Zolpidem Tartrate (Ambien) 10 mg PO PRN PRN Insomnia ##0 02/03/10 10/12/21 Previous Rx's Medication Instructions Recorded losartan 50 mg tablet 50 mg PO DAILY #30 tabs 10/13/21 benzonatate 200 mg capsule 200 mg PO BID PRN cough #20 caps 01/09/22 doxycycline hyclate 100 mg tablet 100 mg PO BID #20 tabs 01/09/22 promethazine 6.25 mg-codeine 10 5 ml PO Q4-6H PRN cough #473 mL 01/09/22 mg/5 mL syrup benzonatate 200 mg capsule 200 mg PO BID PRN cough #20 caps 09/22/22 doxycycline hyclate 100 mg tablet 100 mg PO BID #20 tabs 09/22/22 Allergies Allergy/AdvReac Type Severity Reaction Status Date / Time No Known Drug Allergies Allergy Verified 11/02/21 17:45 Review of Systems Review of Systems Narrative: GENERAL: See HPI HEENT: Denies sinus pain, ear pain, sore throat, difficulty swallowing, dizziness. RESPIRATORY: See HPI CARDIOVASCULAR: Denies chest pain, palpitations, orthopnea, edema, GASTROINTESTINAL: Denies nausea, vomiting, abdominal pain, diarrhea, constipation, melena. : Denies dysuria, frequency, incontinence, hematuria, urinary retention. MUSCULOSKELETAL: denies weakness, joint pain, or bony pain SKIN: Denies rash, skin lesions, or other NEUROLOGIC: Denies weakness, headache, numbness, change in speech, confusion, seizures, incoordination. PSYCHIATRIC: No concerning psychosocial issues. 12 point review of systems is negative except for those stated above Patient History Medical History Anemia Anxiety GI bleed Surgical History Status post surgery (02/03/10) Status post surgery (12/02/12) Social History household members: spouse Smoking Status: Never smoker alcohol intake: former Smoking Status: Never smoker alcohol intake frequency: other Substance Use Type: does not use Exam Narrative Exam Narrative: GENERAL: [61] year old patient appears stated age. Well-developed patient, in mild distress. HEAD: Atraumatic. Normocephalic. EYES: Pupils equal round and reactive. Extraocular motions intact. No scleral icterus. No injection or drainage. ENT: Nose without bleeding, purulent drainage. Throat without erythema, tonsillar hypertrophy or exudate. Airway patent. NECK: Trachea midline. Non tender CARDIOVASCULAR: Regular rate and rhythm without murmurs, gallops, or rubs. RESPIRATORY: Clear to auscultation. Breath sounds equal bilaterally. No wheezes, rales, or rhonchi. GASTROINTESTINAL: Abdomen soft, non-tender, nondistended. EXTREMITIES: No edema or joint tenderness. BACK: Nontender without deformity or crepitance. No flank tenderness. NEURO: AOx3. SKIN: No rash or erythema of visible areas Initial Vital Signs Initial Vital Signs: Vital Signs Temperature 97.8 F 09/22/22 14:44 Pulse Rate 78 09/22/22 14:44 Respiratory Rate 16 09/22/22 14:44 Blood Pressure 126/68 09/22/22 14:44 Pulse Oximetry 98 09/22/22 14:44 Oxygen Delivery Method Room Air 09/22/22 14:44 Course Orders Ordered: ED Orders 09/22/22 14:50 XR chest 2V Stat 09/22/22 15:10 Complete Blood Count AUTO DIFF Stat Comprehensive Metabolic Panel Stat Lactate (Lactic Acid) Stat Magnesium Stat NT-proBNP (BNP-Adult 18+) Stat Procalcitonin Stat Respiratory Panel (Film Array) Stat Discontinued Medications Albuterol (Albuterol Hfa Prepack) 1 box MISC SEEINSTR ONE Stop: 09/22/22 16:58 Last Admin: 09/22/22 17:04 Dose: 1 box Documented By: MILLA Albuterol/Ipratropium (Albuterol/Ipratropium 3 Ml Ampul) 3 ml INH NOW ONE Stop: 09/22/22 14:49 Last Admin: 09/22/22 15:38 Dose: 3 ml Documented By: MILLA Sodium Chloride (Normal Saline 0.9%) 1,000 mls @ 1,000 mls/hr IV BOLUS ONE Stop: 09/22/22 15:47 Last Infusion: 09/22/22 16:28 Dose: 0 mls/hr Documented By: Admin: 09/22/22 15:31 Dose: 1,000 mls/hr Documented By: BRIANNE Sodium Chloride (Normal Saline 0.9%) 500 mls @ 1,000 mls/hr IV BOLUS ONE Stop: 09/22/22 17:33 Last Admin: 09/22/22 17:05 Dose: 1,000 mls/hr Documented By: JEAN MARIE Vital Signs Vital signs: Vital Signs - 8 hr 09/22/22 14:44 09/22/22 15:46 09/22/22 15:17 Temperature 97.8 F Pulse Rate 78 82 Pulse Rate [Orthostatic Lying] Pulse Rate [Orthostatic Sitting] Pulse Rate [Orthostatic Standing] Respiratory Rate 16 16 20 Blood Pressure 126/68 122/59 L Blood Pressure [Orthostatic Lying] Blood Pressure [Orthostatic Sitting] Blood Pressure [Orthostatic Standing] Pulse Oximetry 98 99 Oxygen Delivery Method Room Air Room Air 09/22/22 15:17 09/22/22 15:30 09/22/22 15:30 Temperature Pulse Rate 73 67 Pulse Rate [Orthostatic Lying] Pulse Rate [Orthostatic Sitting] Pulse Rate [Orthostatic Standing] Respiratory Rate 20 Blood Pressure 114/58 L Blood Pressure [Orthostatic Lying] Blood Pressure [Orthostatic Sitting] Blood Pressure [Orthostatic Standing] Pulse Oximetry 97 97 Oxygen Delivery Method 09/22/22 15:46 09/22/22 16:06 09/22/22 16:08 Temperature Pulse Rate 85 Pulse Rate [Orthostatic Lying] Pulse Rate [Orthostatic Sitting] Pulse Rate [Orthostatic Standing] Respiratory Rate 54 H Blood Pressure 148/70 H Blood Pressure [Orthostatic Lying] Blood Pressure [Orthostatic Sitting] Blood Pressure [Orthostatic Standing] Pulse Oximetry 99 Oxygen Delivery Method 09/22/22 16:09 09/22/22 16:09 09/22/22 16:10 Temperature Pulse Rate 82 81 Pulse Rate [Orthostatic Lying] Pulse Rate [Orthostatic Sitting] Pulse Rate [Orthostatic Standing] Respiratory Rate 23 18 Blood Pressure 133/61 Blood Pressure [Orthostatic Lying] Blood Pressure [Orthostatic Sitting] Blood Pressure [Orthostatic Standing] Pulse Oximetry 100 99 Oxygen Delivery Method 09/22/22 16:10 09/22/22 17:34 Temperature Pulse Rate Pulse Rate [Orthostatic Lying] 81 Pulse Rate [Orthostatic Sitting] 84 Pulse Rate [Orthostatic Standing] 84 Respiratory Rate Blood Pressure 131/61 Blood Pressure [Orthostatic Lying] 119/59 L Blood Pressure [Orthostatic Sitting] 126/62 Blood Pressure [Orthostatic Standing] 131/67 Pulse Oximetry Oxygen Delivery Method Medical Decision Making Lab Data 09/22/22 15:10 09/22/22 15:10 Labs: Lab Results 09/22/22 09/22/22 09/22/22 Range/Units 15:10 15:10 15:10 WBC 4.6 (4.5-11.0) X10^3/uL RBC 3.85 L (4.0-5.2) X10^6/uL Hgb 11.7 L (12.0-16.0) g/dL Hct 34.4 L (36-46) % MCV 89.4 (80-100) fL MCH 30.4 (26-34) PG MCHC 34.0 (30-36) % RDW 13.9 (11.6-14.8) % Plt Count 250 (150-400) X10^3/uL Neut % (Auto) 79.0 H (50-75) % Lymph % (Auto) 9.2 L (25-40) % Harlan % (Auto) 7.3 (3-14) % Eos % (Auto) 3.9 (2-4) % Baso % (Auto) 0.6 (0-2) % Neut # (Auto) 3600 (6118-1576) /uL Lymph # (Auto) 400 L (8669-1532) /uL Harlan # (Auto) 300 (0-900) /uL Eos # (Auto) 200 (0-450) /uL Baso # (Auto) 0 (0-100) /uL Sodium 137 (137-145) mmol/L Potassium 3.9 (3.4-5.1) mmol/L Chloride 102 (98-107) mmol/L Carbon Dioxide 28 (22-32) mmol/L BUN 11 (7-17) mg/dL Creatinine 0.73 (0.52-1.04) mg/dL Estimated GFR > 60 (>60) mL/min BUN/Creatinine Ratio 15.1 (6-22) Glucose 158 H (80-110) mg/dL Lactate (0.7-2.1) mmol/L Calcium 8.5 (8.4-10.2) mg/dL Magnesium 1.9 (1.6-2.3) mg/dL Total Bilirubin 0.5 (0.2-1.3) mg/dL AST 42 H (14-36) IU/L ALT 38 H (<35) IU/L Alkaline Phosphatase 122 (38-126) U/L NT-Pro-B Natriuret Pep 432 H (<125) pg/mL Total Protein 6.7 (6.3-8.2) g/dL Albumin 3.8 (3.5-5.0) g/dL Globulin 2.9 (1.7-4.1) g/dL Albumin/Globulin Ratio 1.3 (1.0-2.8) Procalcitonin 0.06 (<0.5) ng/mL Chlamy pneumoniae PCR (Not Detect) Adenovirus (PCR) (Not Detect) B. pertussis DNA (PCR) (Not Detecte) B.parapertussis DNA PCR (Not Detecte) Coronavirus OC43 (PCR) (Not Detect) Coronavirus HKU1 (PCR) (Not Detect) Coronavirus 229E (PCR) (Not Detect) SARS-CoV-2 (PCR) (Not Detecte) Coronavirus NL63 (PCR) (Not Detect) Human Metapneumovir PCR (Not Detect) Influenza Type A (PCR) (Not Detect) Influenza Type B (PCR) (Not Detect) M. pneumoniae (PCR) (Not Detect) Parainfluenza 1 (PCR) (Not Detect) Parainfluenza 2 (PCR) (Not Detect) Parainfluenza 3 (PCR) (Not Detect) Parainfluenza 4 (PCR) (Not Detect) RSV (PCR) (Not Detect) Entero/Rhino (PCR) (Not Detect) 09/22/22 09/22/22 Range/Units 15:10 15:10 WBC (4.5-11.0) X10^3/uL RBC (4.0-5.2) X10^6/uL Hgb (12.0-16.0) g/dL Hct (36-46) % MCV (80-100) fL MCH (26-34) PG MCHC (30-36) % RDW (11.6-14.8) % Plt Count (150-400) X10^3/uL Neut % (Auto) (50-75) % Lymph % (Auto) (25-40) % Harlan % (Auto) (3-14) % Eos % (Auto) (2-4) % Baso % (Auto) (0-2) % Neut # (Auto) (6347-6820) /uL Lymph # (Auto) (0459-4025) /uL Harlan # (Auto) (0-900) /uL Eos # (Auto) (0-450) /uL Baso # (Auto) (0-100) /uL Sodium (137-145) mmol/L Potassium (3.4-5.1) mmol/L Chloride (98-107) mmol/L Carbon Dioxide (22-32) mmol/L BUN (7-17) mg/dL Creatinine (0.52-1.04) mg/dL Estimated GFR (>60) mL/min BUN/Creatinine Ratio (6-22) Glucose (80-110) mg/dL Lactate 1.6 (0.7-2.1) mmol/L Calcium (8.4-10.2) mg/dL Magnesium (1.6-2.3) mg/dL Total Bilirubin (0.2-1.3) mg/dL AST (14-36) IU/L ALT (<35) IU/L Alkaline Phosphatase (38-126) U/L NT-Pro-B Natriuret Pep (<125) pg/mL Total Protein (6.3-8.2) g/dL Albumin (3.5-5.0) g/dL Globulin (1.7-4.1) g/dL Albumin/Globulin Ratio (1.0-2.8) Procalcitonin (<0.5) ng/mL Chlamy pneumoniae PCR Not detected (Not Detect) Adenovirus (PCR) Not detected (Not Detect) B. pertussis DNA (PCR) Not detected (Not Detecte) B.parapertussis DNA PCR Not detected (Not Detecte) Coronavirus OC43 (PCR) Not detected (Not Detect) Coronavirus HKU1 (PCR) Not detected (Not Detect) Coronavirus 229E (PCR) Not detected (Not Detect) SARS-CoV-2 (PCR) Not detected (Not Detecte) Coronavirus NL63 (PCR) Not detected (Not Detect) Human Metapneumovir PCR Not detected (Not Detect) Influenza Type A (PCR) Not detected (Not Detect) Influenza Type B (PCR) Not detected (Not Detect) M. pneumoniae (PCR) Not detected (Not Detect) Parainfluenza 1 (PCR) Not detected (Not Detect) Parainfluenza 2 (PCR) Not detected (Not Detect) Parainfluenza 3 (PCR) Not detected (Not Detect) Parainfluenza 4 (PCR) Not detected (Not Detect) RSV (PCR) Not detected (Not Detect) Entero/Rhino (PCR) Not detected (Not Detect) Urine Dip Bedside Urine Glucose Negative Bedside Urine Bilirubin - Negative Bedside Urine Ketone - Negative Urine Specific [place] 1.000 Bedside Urine Occult Blood - Negative Bedside Urine pH 6.0 Bedside Urine Protein - Negative Bedside Urine Urobilinogen - Negative Bedside Urine Nitrite - Negative Bedside Urine Leukocytes - Negative Esterase Point of care testing: Urine Dip Bedside Urine Glucose Negative Bedside Urine Bilirubin - Negative Bedside Urine Ketone - Negative Urine Specific [place] 1.000 Bedside Urine Occult Blood - Negative Bedside Urine pH 6.0 Bedside Urine Protein - Negative Bedside Urine Urobilinogen - Negative Bedside Urine Nitrite - Negative Bedside Urine Leukocytes - Negative Esterase [facility] Narrative Medical decision making narrative: [61] year old patient presents with cough and shortness of breath Multiple etiologies for patient's symptoms considered including, but not limited to: [Pneumonia versus CHF versus viral upper respiratory infection versus other] Prior Charts reviewed in our EMR Primary Historian: patient Labs reviewed and interpreted by myself: No leukocytosis or left shift, no signs of anemia, no electrolyte abnormality, renal function at baseline Imaging reviewed: Chest x-ray without obvious infiltrate Patient's symptoms improved over duration of stay with above-stated therapies. Findings and discharge diagnosis discussed with patient/family followed by verbalization of understanding Return precautions discussed with patient/family whom verbalize understanding of diagnosis and plan Discharge Plan Departure Patient Disposition: Home Clinical Impression: Atypical pneumonia Instructions: DI for Atypical Pneumonia Activity Restrictions/Additional Instructions: *You have been diagnosed with [cough and weakness, most likely due to early atypical pneumonia. As we discussed your history and physical exam are reassuring, labs are without any significant abnormalities and chest x-ray is clear of any significant pneumonia] *What to do: *Please continue to take your regular medications as directed. [ x] New medication prescriptions sent to your pharmacy: [ [facility]] [ ] New medication written as a paper prescription [ ] No new medications given *Please follow up with your primary care provider in 2-3 days, call for an appointment. Let them know you were seen in the Emergency Department and that we ask that you be seen in follow up. We will electronically transmit a record of today's note if your PCP is in our system *Return to Emergency Department if you should have any new, worsening or concerning symptoms, such as [fever greater than 101 F, shaking chills, worsening pain, persistent vomiting or other bothersome symptoms] Prescriptions: New benzonatate 200 mg capsule 200 mg PO BID PRN (Reason: cough) Qty: 20 0RF doxycycline hyclate 100 mg tablet 100 mg PO BID Qty: 20 0RF No Action Citalopram Hydrobromide (Citalopram HBr) 30 mg tablet 30 mg PO BEDTIME Qty: 0 Zolpidem Tartrate (Ambien) 10 mg tablet 10 mg PO PRN MDD 10 mg PRN (Reason: Insomnia) Qty: 0 losartan 50 mg Tablet 50 mg PO DAILY Qty: 30 0RF doxycycline hyclate 100 mg tablet 100 mg PO BID Qty: 20 0RF benzonatate 200 mg capsule 200 mg PO BID PRN (Reason: cough) Qty: 20 0RF promethazine-codeine 6.25-10 mg/5 mL syrup 5 ml PO Q4-6H PRN (Reason: cough) Qty: 473 0RF Referrals: Magdiel Johnson MD [Primary Care Provider] - Stand Alone Forms: Patient Portal/API
[2022-09-22] MEDS: ALBUTEROL HFA PREPACK 1 BOX MISC (17:04)
[2022-09-22] MEDS: SODIUM CHLORIDE 0.9% 500 ML 1000 ML IV (17:05)
[2022-09-25 07:14] LABS: x Labcorp Estim. Avg Glu (eAG) 126 mg/dL (.)
== END 2022-09-22 18:01 | disposition home or self-care (01) ==
PROVIDERS: Registered Nurse; Emergency Provider Emergency Medicine; PCP Family Medicine
DX: J18.9 Pneumonia, unspecified organism (principal); R06.02 Shortness of breath; Z20.822 Contact with and (suspected) exposure to COVID-19
CPT/HCPCS: 36415; 71046; 80053; 81003; 83036; 83605; 83735; 83880; 84145; 85025; 87633; 94640; 99284

== ENCOUNTER 2022-10-24 02:09 | Emergency (ER) | payer OTHER, SELFPAY ==
[2021-10-12 12:01] VITALS: BMI 29.3
[2022-10-24 02:16] VITALS: BP 126/67; PULSE 64; RESP 20; TEMP 36.4; O2SAT 96; BMI 25.8
--- NOTE | 2022-10-24 02:19 | DI.RAD.S_ITS ---
PROCEDURE: XR CHEST 2V INDICATIONS: eval for PNA TECHNIQUE: 2 views of the chest were acquired. COMPARISON: [facility], , XR CHEST 2V, 09/22/2022, 15:26. FINDINGS: Surgical changes and devices: Right Port-A-Cath. Lungs and pleura: Lungs are clear. No pleural effusions or pneumothorax. Mediastinum: Mediastinal contours are normal. Heart size is normal. Bones and chest wall: No suspicious bony abnormalities. Soft tissues appear unremarkable. IMPRESSION: No acute pulmonary process. The above findings are concordant with preliminary report. Dictated by: May Christensen M.D. on 10/24/2022 at 8:19 Approved by: May Christensen M.D. on 10/24/2022 at 8:19
--- NOTE | 2022-10-24 02:19 | ED_ITS ---
HPI - General Adult General Chief complaint: Upper Respiratory Symptoms Stated complaint: pnemonia Time Seen by Provider: 10/24/22 02:12 Source: patient Mode of arrival: Ambulatory Limitations: no limitations History of Present Illness HPI narrative: Patient is a 62-year-old female who was seen yesterday by her primary care doctor. Was diagnosed with pneumonia. Is on Levaquin. Is also on steroids. She states that she still feels like she is short of breath. She is also coughing. She was given a prescription for cough medicine but it does not seem to be helping all that much. She denies any fevers. No chest pain. Related Data Home Medications Medication Instructions Recorded Confirmed Citalopram Hydrobromide 30 mg PO BEDTIME depression ##0 02/03/10 10/12/21 (Citalopram HBr) Zolpidem Tartrate (Ambien) 10 mg PO PRN PRN Insomnia ##0 02/03/10 10/12/21 Previous Rx's Medication Instructions Recorded losartan 50 mg tablet 50 mg PO DAILY #30 tabs 10/13/21 benzonatate 200 mg capsule 200 mg PO BID PRN cough #20 caps 01/09/22 doxycycline hyclate 100 mg tablet 100 mg PO BID #20 tabs 01/09/22 promethazine 6.25 mg-codeine 10 5 ml PO Q4-6H PRN cough #473 mL 01/09/22 mg/5 mL syrup benzonatate 200 mg capsule 200 mg PO BID PRN cough #20 caps 09/22/22 doxycycline hyclate 100 mg tablet 100 mg PO BID #20 tabs 09/22/22 benzonatate 100 mg capsule 100 mg PO Q6H PRN cough #20 caps 10/24/22 Allergies Allergy/AdvReac Type Severity Reaction Status Date / Time No Known Drug Allergies Allergy Verified 11/02/21 17:45 Review of Systems Constitutional Constitutional: Reports system reviewed and no additional complaints, except as documented Cardiovascular Cardiovascular: Reports system reviewed and no additional complaints, except as documented Respiratory Respiratory: Reports system reviewed and no additional complaints, except as documented Gastrointestinal Gastrointestinal: Reports system reviewed and no additional complaints, except as documented Integumentary/Breasts Skin/Breast: Reports system reviewed and no additional complaints, except as documented Neurologic Neurologic: Reports system reviewed and no additional complaints, except as documented Hematologic/Lymphatic On Anticoagulants: No Patient History Medical History Anemia Anxiety GI bleed Surgical History Status post surgery (02/03/10) Status post surgery (12/02/12) Social History household members: spouse Smoking Status: Never smoker alcohol intake: former Smoking Status: Never smoker alcohol intake frequency: other Substance Use Type: does not use Exam Initial Vital Signs Initial Vital Signs: Vital Signs Temperature 97.6 F 10/24/22 02:16 Pulse Rate 64 10/24/22 02:16 Respiratory Rate 20 10/24/22 02:16 Blood Pressure 126/67 10/24/22 02:16 Pulse Oximetry 96 10/24/22 02:16 Oxygen Delivery Method Nasal Cannula 10/24/22 02:16 HENMT Head: normal to inspection and normocephalic Resp Effort & Inspection: normal respiratory effort Auscultation: clear to auscultation bilaterally Cardio Rate: regular rate Rhythm: regular rhythm GI Inspection: normal to inspection Skin General: no rashes or lesions noted Neuro General: patient alert, patient awake, patient oriented x3 and moves all extremities Extrem General: normal to inspection and No edema Course Orders Ordered: ED Orders 10/24/22 02:19 XR chest 2V Stat Discontinued Medications Benzonatate (Benzonatate 100 Mg Capsule) 100 mg PO NOW ONE Stop: 10/24/22 02:32 Last Admin: 10/24/22 02:38 Dose: 100 mg Documented By: HNG Vital Signs Vital signs: Vital Signs - 8 hr 10/24/22 02:16 10/24/22 02:20 10/24/22 02:30 Temperature 97.6 F Pulse Rate 64 64 Respiratory Rate 20 Blood Pressure 126/67 Pulse Oximetry 96 95 95 Oxygen Delivery Method Nasal Cannula 10/24/22 03:00 10/24/22 03:30 Temperature Pulse Rate 68 70 Respiratory Rate Blood Pressure 137/85 Pulse Oximetry 96 97 Oxygen Delivery Method Room Air Medical Decision Making Imaging Data Chest x-ray: Radiologist's Impression: No acute disease MDM Narrative Medical decision making narrative: Patient is not tachypneic. Is not hypoxic. No respiratory distress. Clear lungs. Is currently being treated for pneumonia. Chest x-ray today is negative. Patient is afebrile. No indication for further workup here in the ER. No indication to switch any of her current medications. I will send her home with a prescription for Tessalon to try to help with the cough. She was ad vised to contact her primary doctor for follow-up. She expressed understanding and agreement. Discharge Plan Departure Patient Disposition: Home Clinical Impression: Cough, Shortness of breath Instructions: Cough Activity Restrictions/Additional Instructions: I do recommend that you complete the course of antibiotics as directed. Keep all of your scheduled medical appointments. Return to the emergency department for new or worsening symptoms. Prescriptions: New benzonatate 100 mg capsule 100 mg PO Q6H PRN (Reason: cough) Qty: 20 0RF No Action Citalopram Hydrobromide (Citalopram HBr) 30 mg tablet 30 mg PO BEDTIME Qty: 0 Zolpidem Tartrate (Ambien) 10 mg tablet 10 mg PO PRN MDD 10 mg PRN (Reason: Insomnia) Qty: 0 losartan 50 mg Tablet 50 mg PO DAILY Qty: 30 0RF doxycycline hyclate 100 mg tablet 100 mg PO BID Qty: 20 0RF benzonatate 200 mg capsule 200 mg PO BID PRN (Reason: cough) Qty: 20 0RF promethazine-codeine 6.25-10 mg/5 mL syrup 5 ml PO Q4-6H PRN (Reason: cough) Qty: 473 0RF benzonatate 200 mg capsule 200 mg PO BID PRN (Reason: cough) Qty: 20 0RF doxycycline hyclate 100 mg tablet 100 mg PO BID Qty: 20 0RF Referrals: Magdiel Johnson MD [Primary Care Provider] - Stand Alone Forms: Patient Portal/API
[2022-10-24 02:20] VITALS: PULSE 64; O2SAT 95
[2022-10-24 02:30] VITALS: O2SAT 95
[2022-10-24] MEDS: BENZONATATE 100 MG CAPSULE PO (02:38)
[2022-10-24 03:00] VITALS: PULSE 68; O2SAT 96
[2022-10-24 03:30] VITALS: BP 137/85; PULSE 70; O2SAT 97
== END 2022-10-24 03:48 | disposition home or self-care (01) ==
PROVIDERS: Emergency Provider Emergency Medicine; PCP Family Medicine
DX: R05.9 Cough, unspecified (principal); R06.02 Shortness of breath; Z87.01 Personal history of pneumonia (recurrent)
CPT/HCPCS: 71046; 99283; 99284

== ENCOUNTER → 2022-12-31 17:05 | Outpatient (CLI) | payer OTHER, SELFPAY ==
[2021-10-12 12:01] VITALS: BMI 29.3
--- NOTE | 2022-12-31 17:06 | DI.RAD.S_ITS ---
PROCEDURE: XR CHEST 2V INDICATIONS: Subacute cough TECHNIQUE: 2 views of the chest were acquired. COMPARISON: [facility], CR, XR CHEST 2V, 10/24/2022, 2:14. [facility], CR, XR CHEST 2V, 09/22/2022, 15:26. FINDINGS: Surgical changes and devices: A right chest Port-A-Cath is seen in stable position. Lungs and pleura: Lungs are clear. No pleural effusions or pneumothorax. Mediastinum: Mediastinal contours are normal. Heart size is normal. Bones and chest wall: No suspicious bony abnormalities. Soft tissues appear unremarkable. IMPRESSION: No acute cardiopulmonary abnormality is seen. Approved by: Tal Soto M.D. on 01/01/2023 at 10:28
== END ==
PROVIDERS: PCP Family Medicine; Referring Provider Family Medicine; Visit Provider Family Medicine
DX: R05.2 Subacute cough (principal)
CPT/HCPCS: 71046

== ENCOUNTER 2023-02-02 17:32 | Emergency (ER) | payer OTHER, SELFPAY ==
[2021-10-12 12:01] VITALS: BMI 29.3
[2023-02-02] VITALS (10 sets, daily range): BP systolic 105–123; BP diastolic 55–66; PULSE 59–66; RESP 16; TEMP 36.4–36.5; O2SAT 98–99; BMI 27.1
[2023-02-02 19:23] LABS: COVID19 -Nasal RAPID Negative (Negative)
--- NOTE | 2023-02-02 19:52 | ED.HA ---
HPI - Headache General Chief Complaint: Headache Stated Complaint: numbness whole body/ horrible headache Time Seen by Provider: 02/02/23 19:49 Source: patient and RN notes reviewed Mode of arrival: Ambulatory Limitations: no limitations History of Present Illness HPI Narrative: 62-year-old female with history of chronic neuropathy, Waldenstrom macroglobulinemia, with complaint of numbness tingling of her legs and upper extremities that started yesterday. Patient states she does normally get neuropathy in her legs but not as much in her upper extremities. She states that started last night woke her up from sleep and has been bothering her quite a bit. She states today she laid down for a nap around 1500 and woke up with a headache. She describes it as being from the occiput moving forward also has a little bit of upper shoulder discomfort. No pain over the temporal region. She states she does not typically get headaches. She is never had migraines. She states it is the worst headache she is had. States it has been persistent, she is not had any other neurologic changes. No passing out. No fevers or chills. No vision changes, no difficulty with speech no difficulty movement she describes paresthesias in all 4 extremities none worse than the other, no weakness in her extremities. She states a little bit of chest discomfort, no shortness of breath. She denies any nausea or vomiting. No vertigo or dizziness. Patient denies any diarrhea constipation, no black or bloody stools. No dysuria urgency or frequency no abdominal back or flank pain. Patient states she is been ambulating normally. She tried Tylenol 17 30 this evening without much improvement. She does note a little bit of photophobia. Patient states she is currently on citalopram and. She is had a prior hysterectomy. No known drug allergies. Denies tobacco, alcohol or illicit. Dr. Johnson is her primary care physician. She states she has a cardiac family history but no history of aneurysms or other vascular issues. Related Data Home Medications Medication Instructions Recorded Confirmed Citalopram Hydrobromide 30 mg PO BEDTIME depression ##0 02/03/10 10/12/21 (Citalopram HBr) Zolpidem Tartrate (Ambien) 10 mg PO PRN PRN Insomnia ##0 02/03/10 10/12/21 Previous Rx's Medication Instructions Recorded losartan 50 mg tablet 50 mg PO DAILY #30 tabs 10/13/21 benzonatate 200 mg capsule 200 mg PO BID PRN cough #20 caps 01/09/22 doxycycline hyclate 100 mg tablet 100 mg PO BID #20 tabs 01/09/22 promethazine 6.25 mg-codeine 10 5 ml PO Q4-6H PRN cough #473 mL 01/09/22 mg/5 mL syrup benzonatate 200 mg capsule 200 mg PO BID PRN cough #20 caps 09/22/22 doxycycline hyclate 100 mg tablet 100 mg PO BID #20 tabs 09/22/22 benzonatate 100 mg capsule 100 mg PO Q6H PRN cough #20 caps 10/24/22 Allergies Allergy/AdvReac Type Severity Reaction Status Date / Time No Known Drug Allergies Allergy Verified 11/02/21 17:45 Review of Systems Review of Systems ROS Unobtainable: All systems reviewed & are unremarkable except as noted in HPI and below Patient History Medical History GI bleed Anemia Anxiety Surgical History Status post surgery (12/02/12) Status post surgery (02/03/10) Social History household members: spouse Smoking Status: Never smoker alcohol intake: former Smoking Status: Never smoker alcohol intake frequency: other Substance Use Type: does not use Exam Narrative Exam Narrative: GEN: well nourished, well appearing female, alert and oriented x 3, patient appears to be in mild distress. Patient initially sleeping awakens easily. HEENT: Atraumatic, pupils are equal round reactive to light, no photophobia appreciated, extraocular movements are intact, nares are clear, there is no conjunctival pallor. Throat is clear without any exudates, erythema, tonsillar enlargement or uvular deviation, no facial droop. No meningeal signs. HEART: Regular rate and rhythm without murmur, clicks, rubs. No carotid bruits, pulses are equal in upper and lower extremities LUNGS:Lungs clear to auscultation, no wheezes, rales, crackles, chest moves symmetrically ABD:bowel sounds normal, soft, non-tender, no guarding, rebound, rigidity, no masses noted, no hepatosplenomegaly :No CVA tenderness MSCL: Non-tender, no muscle atrophy, muscles strength 5/5 upper and lower extremities, full range of motion, normal gait NEURO:CN 2-12 intact, sensation normal, finger nose finger test normal, heel [place] test normal, romberg normal SKIN: No rash, erythema or other skin changes. Initial Vital Signs Initial Vital Signs: Vital Signs Temperature 97.7 F 02/02/23 17:36 Pulse Rate 64 02/02/23 17:36 Respiratory Rate 16 02/02/23 17:36 Blood Pressure 122/62 02/02/23 17:36 Pulse Oximetry 99 02/02/23 17:36 Oxygen Delivery Method Room Air 02/02/23 17:36 Scores NIH Stroke Scale Level of Conciousness: Alert, keenly responsive Ask month/age: Answers both questions correctly. Open/close eyes, close hand: Performs both tasks correctly Best gaze horizontal: Normal Visual boss: No visual loss Facial palsy: Normal symetrical movement Left arm drift: No drift for full 10 sec Right arm drift: No drift for full 10 sec Left leg drift: No drift for full 5 sec Right leg drift: No drift for full 5 sec Limb ataxia: Absent Sensory on face/arms/legs: Normal, no sensory loss Best language: No aphasia, normal Dysarthria: Normal Extinction or inattention: No abnormality Total NIH Stroke scale score: 0 Course Orders Ordered: ED Orders 02/02/23 19:02 COVID19 -Nasal RAPID Stat 02/02/23 20:04 CT angio head and neck Stat 02/02/23 20:06 CT head/brain wo con Stat 02/02/23 20:14 Complete Blood Count AUTO DIFF Stat Comprehensive Metabolic Panel Stat Discontinued Medications Sodium Chloride (Normal Saline 0.9%) 1,000 mls @ 1,000 mls/hr IV BOLUS ONE Stop: 02/02/23 21:03 Last Infusion: 02/02/23 21:20 Dose: Infused Documented By: Admin: 02/02/23 20:20 Dose: 1,000 mls/hr Documented By: JEANINE Ketorolac Tromethamine (Ketorolac 30 Mg/Ml Vial) 15 mg IV NOW ONE Stop: 02/02/23 20:07 Last Admin: 02/02/23 20:19 Dose: 15 mg Documented By: JEANINE Metoclopramide HCl (Metoclopramide 10 Mg/2 Ml Inj) 10 mg IV NOW ONE Stop: 02/02/23 20:07 Last Admin: 02/02/23 20:20 Dose: 10 mg Documented By: JEANINE Vital Signs Vital signs: Vital Signs - 8 hr 02/02/23 17:36 02/02/23 20:17 02/02/23 20:18 Temperature 97.7 F Pulse Rate 64 Respiratory Rate 16 Blood Pressure 122/62 123/59 L Pulse Oximetry 99 99 Oxygen Delivery Method Room Air 02/02/23 20:18 02/02/23 20:30 02/02/23 20:30 Temperature Pulse Rate 59 L 59 L Respiratory Rate Blood Pressure 106/55 L Pulse Oximetry 98 98 Oxygen Delivery Method 02/02/23 21:01 02/02/23 21:02 02/02/23 21:02 Temperature Pulse Rate 60 59 L Respiratory Rate Blood Pressure 120/59 L Pulse Oximetry 98 99 Oxygen Delivery Method 02/02/23 21:30 02/02/23 21:31 02/02/23 21:31 Temperature Pulse Rate 63 62 Respiratory Rate Blood Pressure 105/66 Pulse Oximetry 98 98 Oxygen Delivery Method 02/02/23 22:00 02/02/23 22:01 02/02/23 22:01 Temperature 97.6 F Pulse Rate 65 66 Respiratory Rate 16 Blood Pressure 121/58 L Pulse Oximetry 98 98 Oxygen Delivery Method MDM - Headache Lab Data 02/02/23 20:14 02/02/23 20:14 Labs: Lab Results 02/02/23 02/02/23 Range/Units 19:02 20:14 WBC 2.7 L (4.5-11.0) X10^3/uL RBC 4.05 (4.0-5.2) X10^6/uL Hgb 12.3 (12.0-16.0) g/dL Hct 36.1 (36-46) % MCV 89.2 (80-100) fL MCH 30.5 (26-34) PG MCHC 34.2 (30-36) % RDW 14.5 (11.6-14.8) % Plt Count 250 (150-400) X10^3/uL Neut % (Auto) 58.5 (50-75) % Lymph % (Auto) 22.0 L (25-40) % [place] % (Auto) 12.4 (3-14) % Eos % (Auto) 5.7 H (2-4) % Baso % (Auto) 1.4 (0-2) % Neut # (Auto) 1600 (0075-1442) /uL Lymph # (Auto) 600 L (9633-6449) /uL [place] # (Auto) 300 (0-900) /uL Eos # (Auto) 200 (0-450) /uL Baso # (Auto) 0 (0-100) /uL Sodium 138 (137-145) mmol/L Potassium 3.9 (3.4-5.1) mmol/L Chloride 102 (98-107) mmol/L Carbon Dioxide 30 (22-32) mmol/L BUN 22 H (7-17) mg/dL Creatinine 0.84 (0.52-1.04) mg/dL Estimated GFR > 60 (>60) mL/min BUN/Creatinine Ratio 26.2 H (6-22) Glucose 96 (80-110) mg/dL Calcium 9.2 (8.4-10.2) mg/dL Total Bilirubin 0.5 (0.2-1.3) mg/dL AST 34 (14-36) IU/L ALT 36 H (<35) IU/L Alkaline Phosphatase 97 (38-126) U/L Total Protein 7.0 (6.3-8.2) g/dL Albumin 4.0 (3.5-5.0) g/dL Globulin 3.0 (1.7-4.1) g/dL Albumin/Globulin Ratio 1.3 (1.0-2.8) SARS-CoV-2 (PCR) Negative (Negative) Imaging Data CT scan - head: Radiologist's Impression: [address] [address] [address] Scan Report Signed Patient: Mauricio Rdz MR#: [id number] : 1960 Acct:[id number] Age/Sex: 62 / F Date of Service: 02/02/23 Loc: ED Accession Number: [id number] Procedure: CT head/brain wo con Ordering Provider: Eri Guardado D.O. PROCEDURE: CT HEAD/BRAIN WO CON INDICATIONS: Headache, tingling, body numbness; no known injury. TECHNIQUE: Noncontrast 4.5 mm thick angled axial sections acquired from the foramen magnum to the vertex, with coronal and sagittal reformats. For radiation dose reduction, the following was used: automated exposure control, adjustment of mA and/or kV according to patient size. COMPARISON: None. FINDINGS: Image quality: Excellent. CSF spaces: Basal cisterns are patent. No extra-axial fluid collections. Ventricles are normal in size and shape. Brain: No midline shift. No intracranial masses or hemorrhage. Walker-white matter interface is normal. Skull and face: Calvarium and visualized facial bones are intact, without suspicious lesions. Sinuses: Visualized sinuses and mastoids are clear. IMPRESSION: Normal for age. Dictated by: Wallace Erickson M.D. on 02/02/2023 at 21:28 Approved by: Wallace Erickson M.D. on 02/02/2023 at 21:28 CTA - brain/neck: Radiologist's Impression: Close Head CT (Signed) Wallace Erickson - 02/02/23 Head/Neck CTA (Signed) Wallace Erickson - 02/02/23 [place] [address] CT Scan Report Signed Patient: Mauricio Rdz MR#: [id number] : 1960 Acct:[id number] Age/Sex: 62 / F Date of Service: 02/02/23 Loc: ED Accession Number: [id number] Procedure: CT angio head and neck Ordering Provider: Eri Guardado D.O. PROCEDURE: CT ANGIO HEAD AND NECK INDICATIONS: Headache, tingling, body numbness; no known injury. TECHNIQUE: After the administration of intravenous contrast, 1 mm thick sections acquired from the aortic arch through the [place]. 3-dimensional tnrugsc-nzhwseszx-airduqqclb (MIP) and/or volume rendering reformats were acquired of the central intracranial vasculature and neck separately. For radiation dose reduction, the following was used: automated exposure control, adjustment of mA and/or kV according to patient size. COMPARISON: None. FINDINGS: Image quality: Diagnostic. BRAIN: CSF spaces: Ventricles are normal in size and shape. Basal cisterns are patent. No extra-axial fluid collections. Brain: No significant abnormality of the brain can be seen. Skull and face: Calvarium and facial bones appear intact, without suspicious lesions. Orbits appear normal. Sinuses: Sinuses and mastoids are clear. HEAD CT ANGIOGRAPHY: Anterior circulation: Intracranial internal carotid arteries are normal in size and flow. The flow within the paired anterior cerebral arteries is normal and symmetric. The flow within the middle cerebral arteries is normal and symmetric. The anterior communicating artery is seen. No aneurysms are seen. Posterior circulation: Visualized portions of the vertebral arteries demonstrate normal caliber, and join to form a normal appearing basilar artery. Flow within the posterior cerebral arteries is normal and symmetric. No aneurysms are seen. NECK CT ANGIOGRAPHY: Carotid system: The great vessels demonstrate a conventional anatomy as they arise from the aortic arch. The origins of the common carotid arteries appear patent. The common carotid arteries demonstrate normal caliber and courses. The bifurcation regions are both patent but there is a mild degree of atherosclerotic plaquing on the right and a moderate degree on the left, with approximately 50% stenosis of the origin of the left the internal carotid artery immediately above the bifurcation.. The internal carotid arteries demonstrate normal calibers and courses. Posterior circulation: The origins of the vertebral arteries both appear widely patent. The more superior extracranial portions of both vertebral arteries also demonstrate normal courses and calibers. They join to form a normal appearing basilar artery. Soft tissues: Visualized neck soft tissues demonstrate no suspicious abnormalities. Bones: No suspicious bony lesions. Visualized cervical spine appears normally aligned. IMPRESSION: No brain abnormality seen, no intracranial embolic disease or stenosis found. 50% stenosis is noted at the origin of the left internal carotid artery, minimal stenosis is seen on the right. No evidence of arterial dissection. No aneurysm found. Any quantitative measurements of stenosis were performed using NASCET criteria. Dictated by: Wallace Erickson M.D. on 02/02/2023 at 21:38 Approved by: Wallace Erickson M.D. on 02/02/2023 at 21:42 MDM Narrative Medical decision making narrative: 62-year-old female who presents with complaint of headache and paresthesias in all 4 extremities with no other acute neurologic changes. Sensation is normal throughout patient's neuro exam is overall normal. She is well-appearing, nontoxic appearing. Did have a COVID swab which was negative. Does have a history of Waldenstrom's macroglobulinemia. Patient does state it is the worst headache she is ever had it woke her up from sleep this afternoon. She has not had any syncope or other high-risk factors no temporal tenderness. She does describe some mild photophobia. Discussed with patient will obtain imaging head CT and CT angio Basic labs including CBC CMP to evaluate for electrolyte abnormalities. Discussed with patient differential, could be migraine, subarachnoid seems less likely but is on differential as patient describes worst headache of her life although she appears quite comfortable, infectious source. Patient does not appear to have meningitis viral or bacterial. Imaging shows no acute change on noncontrast head CT. CT angio showed no brain abnormality no intracranial embolic disease or stenosis intracranial, 50% stenosis at the left drawer carotid artery with minimal stenosis on the right no evidence of dissection or aneurysm Patient received fluids, IV pain medications and Reglan for headache cocktail. On recheck patient is feeling significantly improved. Patient is felt safe for discharge. She wishes to return home. Reviewed her findings from today need for follow-up. Narrowing and may need to be on a statin regularly, she is follow-up on Saturday for oncology team discussed her discussed her symptoms as well as her findings to see if they need to add any medication and that she should have follow-up at least annually of her carotids. Discharge Plan Departure Patient Disposition: Home Clinical Impression: Headache Instructions: DI for Headache Activity Restrictions/Additional Instructions: Your imaging today shows narrowing 50% stenosis of the origin of the left internal carotid, very minimal stenosis on the right. Share this with your physicians they may discuss whether it is appropriate to take a statin daily and you should have this monitored on a regular basis. You may have had an atypical migraine versus headache induced by viral syndrome. You may take Tylenol up to a 1000 mg and/or ibuprofen up to 600 mg every 6 hours as needed for headache. You may take your home antiemetic medication as prescribed. Please return for fevers, rapidly worsening symptoms, sudden vision changes, new neurologic changes such as weakness, loss of sensation difficulty with speech, balance, dizziness, passing out, persistent vomiting or other new or concerning changes. Prescriptions: No Action Citalopram Hydrobromide (Citalopram HBr) 30 mg tablet 30 mg PO BEDTIME Qty: 0 Zolpidem Tartrate (Ambien) 10 mg tablet 10 mg PO PRN MDD 10 mg PRN (Reason: Insomnia) Qty: 0 losartan 50 mg Tablet 50 mg PO DAILY Qty: 30 0RF doxycycline hyclate 100 mg tablet 100 mg PO BID Qty: 20 0RF benzonatate 200 mg capsule 200 mg PO BID PRN (Reason: cough) Qty: 20 0RF promethazine-codeine 6.25-10 mg/5 mL syrup 5 ml PO Q4-6H PRN (Reason: cough) Qty: 473 0RF benzonatate 100 mg capsule 100 mg PO Q6H PRN (Reason: cough) Qty: 20 0RF benzonatate 200 mg capsule 200 mg PO BID PRN (Reason: cough) Qty: 20 0RF doxycycline hyclate 100 mg tablet 100 mg PO BID Qty: 20 0RF Referrals: Magdiel Johnson MD [Primary Care Provider] - Stand Alone Forms: Patient Portal/API
--- NOTE | 2023-02-02 20:04 | DI.CT.S_ITS ---
PROCEDURE: CT ANGIO HEAD AND NECK INDICATIONS: Headache, tingling, body numbness; no known injury. TECHNIQUE: After the administration of intravenous contrast, 1 mm thick sections acquired from the aortic arch through the [place]. 3-dimensional dukougg-npxnqcthn-cisafeppaq (MIP) and/or volume rendering reformats were acquired of the central intracranial vasculature and neck separately. For radiation dose reduction, the following was used: automated exposure control, adjustment of mA and/or kV according to patient size. COMPARISON: None. FINDINGS: Image quality: Diagnostic. BRAIN: CSF spaces: Ventricles are normal in size and shape. Basal cisterns are patent. No extra-axial fluid collections. Brain: No significant abnormality of the brain can be seen. Skull and face: Calvarium and facial bones appear intact, without suspicious lesions. Orbits appear normal. Sinuses: Sinuses and mastoids are clear. HEAD CT ANGIOGRAPHY: Anterior circulation: Intracranial internal carotid arteries are normal in size and flow. The flow within the paired anterior cerebral arteries is normal and symmetric. The flow within the middle cerebral arteries is normal and symmetric. The anterior communicating artery is seen. No aneurysms are seen. Posterior circulation: Visualized portions of the vertebral arteries demonstrate normal caliber, and join to form a normal appearing basilar artery. Flow within the posterior cerebral arteries is normal and symmetric. No aneurysms are seen. NECK CT ANGIOGRAPHY: Carotid system: The great vessels demonstrate a conventional anatomy as they arise from the aortic arch. The origins of the common carotid arteries appear patent. The common carotid arteries demonstrate normal caliber and courses. The bifurcation regions are both patent but there is a mild degree of atherosclerotic plaquing on the right and a moderate degree on the left, with approximately 50% stenosis of the origin of the left the internal carotid artery immediately above the bifurcation.. The internal carotid arteries demonstrate normal calibers and courses. Posterior circulation: The origins of the vertebral arteries both appear widely patent. The more superior extracranial portions of both vertebral arteries also demonstrate normal courses and calibers. They join to form a normal appearing basilar artery. Soft tissues: Visualized neck soft tissues demonstrate no suspicious abnormalities. Bones: No suspicious bony lesions. Visualized cervical spine appears normally aligned. IMPRESSION: No brain abnormality seen, no intracranial embolic disease or stenosis found. 50% stenosis is noted at the origin of the left internal carotid artery, minimal stenosis is seen on the right. No evidence of arterial dissection. No aneurysm found. Any quantitative measurements of stenosis were performed using NASCET criteria. Dictated by: Wallace Erickson M.D. on 02/02/2023 at 21:38 Approved by: Wallace Erickson M.D. on 02/02/2023 at 21:42
--- NOTE | 2023-02-02 20:06 | DI.CT.S_ITS ---
PROCEDURE: CT HEAD/BRAIN WO CON INDICATIONS: Headache, tingling, body numbness; no known injury. TECHNIQUE: Noncontrast 4.5 mm thick angled axial sections acquired from the foramen magnum to the vertex, with coronal and sagittal reformats. For radiation dose reduction, the following was used: automated exposure control, adjustment of mA and/or kV according to patient size. COMPARISON: None. FINDINGS: Image quality: Excellent. CSF spaces: Basal cisterns are patent. No extra-axial fluid collections. Ventricles are normal in size and shape. Brain: No midline shift. No intracranial masses or hemorrhage. Walker-white matter interface is normal. Skull and face: Calvarium and visualized facial bones are intact, without suspicious lesions. Sinuses: Visualized sinuses and mastoids are clear. IMPRESSION: Normal for age. Dictated by: Wallace Erickson M.D. on 02/02/2023 at 21:28 Approved by: Wallace Erickson M.D. on 02/02/2023 at 21:28
[2023-02-02] MEDS: KETOROLAC 30 MG/ML VIAL 15 MG IV (20:19)
[2023-02-02] MEDS: SODIUM CHLORIDE 0.9% 1,000 ML 1000 ML IV (20:20)
[2023-02-02] MEDS: METOCLOPRAMIDE 10 MG/2 ML INJ IV (20:20)
[2023-02-02 20:21] LABS: Add Manual Diff / Slide Review NO; Basophils Absolute Auto 0 /uL (0-100); Basophils Percent Auto 1.4 % (0-2); Eosinophils Absolute Auto 200 /uL (0-450); Eosinophils Percent Auto 5.7 % (2-4); Hematocrit 36.1 % (36-46); Hemoglobin 12.3 g/dL (12.0-16.0); Lymphocytes Absolute Auto 600 /uL (1100-4500); Mean Corpuscular HGB Conc 34.2 % (30-36); Mean Corpuscular Hemoglobin 30.5 PG (26-34); Mean Corpuscular Volume 89.2 fL (80-100); Monocytes Absolute Auto 300 /uL (0-900); Monocytes Percent Auto 12.4 % (3-14); Neutrophils Absolute Auto 1600 /uL (1500-7000); Neutrophils Percent Auto 58.5 % (50-75); Platelet Count 250 X10^3/uL (150-400); Red Blood Cell Count 4.05 X10^6/uL (4.0-5.2); Red Cell Distribution Width 14.5 % (11.6-14.8); White Blood Cell Count 2.7 X10^3/uL (4.5-11.0)
[2023-02-02 20:38] LABS: Alanine Aminotransferase 36 IU/L (<35); Albumin Globulin Ratio 1.3 (1.0-2.8); Alkaline Phosphatase 97 U/L (38-126); Aspartate Aminotransferase 34 IU/L (14-36); BUN Creatinine Ratio 26.2 (6-22); Bilirubin Total 0.5 mg/dL (0.2-1.3); Blood Urea Nitrogen 22 mg/dL (7-17); Calcium 9.2 mg/dL (8.4-10.2); Carbon Dioxide 30 mmol/L (22-32); Chloride 102 mmol/L (98-107); Estimated Glomerular Filt Rate > 60 mL/min (>60); Glucose 96 mg/dL (80-110); HEMOLYSIS 15 (0-50); Potassium 3.9 mmol/L (3.4-5.1); Sodium 138 mmol/L (137-145)
== END 2023-02-02 22:09 | disposition home or self-care (01) ==
PROVIDERS: Emergency Provider Emergency Medicine; PCP Family Medicine
DX: R51.9 Headache, unspecified (principal); Z79.899 Other long term (current) drug therapy; Z85.79 Personal history of other malignant neoplasms of lymphoid, hematopoietic and related tissues; Z20.822 Contact with and (suspected) exposure to COVID-19
CPT/HCPCS: 36415; 70450; 70496; 70498; 80053; 85025; 87635; 96361; 96374; 96375; 99284; C9803; J1885; J2765; Q9967

== ENCOUNTER → 2023-04-01 17:17 | Outpatient (CLI) | payer OTHER, SELFPAY ==
[2021-10-12 12:01] VITALS: BMI 29.3
--- NOTE | 2023-04-01 | DI.RAD.S_ITS ---
PROCEDURE: XR CHEST 2V INDICATIONS: COUGH TECHNIQUE: 2 views of the chest were acquired. COMPARISON: [facility], CR, XR CHEST 2V, 12/31/2022, 17:16. [facility], CR, XR CHEST 2V, 10/24/2022, 2:14. FINDINGS: Surgical changes and devices: Right-sided port with the catheter tip at the cavoatrial junction. Lungs and pleura: Lungs appear clear. No pleural effusions or pneumothorax. Mediastinum: Mediastinal contours are unchanged. Heart size is normal. Bones and chest wall: No suspicious bony abnormalities. Soft tissues appear unremarkable. IMPRESSION: No acute cardiopulmonary abnormality is seen. Dictated by: Du Ochoa M.D. on 04/02/2023 at 9:06 Approved by: Du Ochoa M.D. on 04/02/2023 at 9:07
== END ==
PROVIDERS: PCP Family Medicine; Referring Provider Family Medicine; Visit Provider Family Medicine
DX: R05.8 Other specified cough (principal)
CPT/HCPCS: 71046

== ENCOUNTER → 2023-05-17 09:52 | Outpatient (ROUT) | payer OTHER, SELFPAY ==
[2021-10-12 12:01] VITALS: BMI 29.3
[2023-05-17 10:44] LABS: Influenza A - CEPHEID Flu A NEGATIVE (NEGATIVE); Influenza B - CEPHEID Flu B NEGATIVE (NEGATIVE); Respiratory Syncytial Virus Negative (Negative)
[2023-05-17 12:18] LABS: COVID-19 CEPHEID 4-PLEX PCR POSITIVE (Negative)
== END ==
PROVIDERS: PCP Family Medicine; Visit Provider Registered Nurse
DX: R05.9 Cough, unspecified (principal)
CPT/HCPCS: 0241U

== ENCOUNTER 2023-11-25 14:49 | Emergency (ER) | payer OTHER, SELFPAY ==
[2021-10-12 12:01] VITALS: BMI 29.3
[2023-11-25] VITALS (12 sets, daily range): BP systolic 128–152; BP diastolic 62–71; PULSE 55–63; RESP 12–25; TEMP 36.9; O2SAT 98–100; BMI 26.1
--- NOTE | 2023-11-25 15:41 | DI.RAD.S_ITS ---
PROCEDURE: XR CHEST 1V INDICATIONS: Shortness of breath TECHNIQUE: One view of the chest was acquired. COMPARISON: [facility], CT, CT CHEST ABDOMEN PELVIS WITH CONTRAST, 08/20/2023, 11:58. [facility], CR, XR CHEST 2V, 12/31/2022, 17:16. [facility], CR, XR CHEST 2V, 04/01/2023, 17:29. FINDINGS: Surgical changes and devices: None. Lungs and pleura: Lungs are clear. No pleural effusions or pneumothorax. Mediastinum: Mediastinal contours appear normal. Heart size is normal. Bones and chest wall: No suspicious bony lesions. Age-appropriate bony degenerative changes are seen. Overlying soft tissues appear unremarkable. IMPRESSION: No acute cardiopulmonary abnormality is seen. Dictated by: Navneet Herrera M.D. on 11/25/2023 at 16:08 Approved by: Navneet Herrera M.D. on 11/25/2023 at 16:09
--- NOTE | 2023-11-25 15:46 | EKG_ITS ---
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
[2023-11-25 16:12] LABS: Add Manual Diff / Slide Review NO; Basophils Absolute Auto 0 /uL (0-100); Basophils Percent Auto 0.8 % (0-2); Eosinophils Absolute Auto 100 /uL (0-450); Eosinophils Percent Auto 1.9 % (2-4); Hematocrit 36.4 % (36-46); Hemoglobin 12.5 g/dL (12.0-16.0); Lymphocytes Absolute Auto 1000 /uL (1100-4500); Lymphocytes Percent Auto 21.9 % (25-40); Mean Corpuscular HGB Conc 34.3 % (30-36); Mean Corpuscular Hemoglobin 30.9 PG (26-34); Monocytes Absolute Auto 400 /uL (0-900); Monocytes Percent Auto 8.1 % (3-14); Neutrophils Absolute Auto 3200 /uL (1500-7000); Neutrophils Percent Auto 67.3 % (50-75); Platelet Count 282 X10^3/uL (150-400); Red Blood Cell Count 4.04 X10^6/uL (4.0-5.2); Red Cell Distribution Width 13.8 % (11.6-14.8); White Blood Cell Count 4.7 X10^3/uL (4.5-11.0)
[2023-11-25 16:16] LABS: Alanine Aminotransferase 34 IU/L (<35); Albumin 4.2 g/dL (3.5-5.0); Albumin Globulin Ratio 1.6 (1.0-2.8); Alkaline Phosphatase 96 U/L (38-126); Aspartate Aminotransferase 40 IU/L (14-36); BUN Creatinine Ratio 21.7 (6-22); Bilirubin Total 0.6 mg/dL (0.2-1.3); Blood Urea Nitrogen 20 mg/dL (7-17); Calcium 9.3 mg/dL (8.4-10.2); Carbon Dioxide 31 mmol/L (22-32); Chloride 101 mmol/L (98-107); Estimated Glomerular Filt Rate > 60 mL/min (>60); Globulin 2.7 g/dL (1.7-4.1); Glucose 96 mg/dL (80-110); Potassium 4.1 mmol/L (3.4-5.1); Sodium 137 mmol/L (137-145); Total Protein 6.9 g/dL (6.3-8.2)
[2023-11-25 16:17] LABS: Lactate (Lactic Acid) 0.6 mmol/L (0.7-2.1)
[2023-11-25 16:29] LABS: HEMOLYSIS < 15 (0-50); NT-proBNP (BNP-Adult 18+) 393 pg/mL (<125); Troponin I < 0.012 ng/mL (0.01-0.034)
[2023-11-25 16:39] LABS: Adenovirus Not Detected (Not Detect); B. parapertussis Not Detected (Not Detecte); Bordetella pertussis Not Detected (Not Detect); Chlamydophila pneumoniae Not Detected (Not Detect); Coronavirus 229E Not Detected (Not Detect); Coronavirus HKU1 Not Detected (Not Detect); Coronavirus NL 63 Not Detected (Not Detect); Coronavirus OC43 Not Detected (Not Detect); Human Metapneumovirus Not Detected (Not Detect); Human Rhinovirus/Enterovirus Not Detected (Not Detect); Influenza A Not Detected (Not Detect); Influenza B Not Detected (Not Detect); Mycoplasma pneumoniae Not Detected (Not Detect); Parainfluenza Virus 1 Not Detected (Not Detect); Parainfluenza Virus 2 Not Detected (Not Detect); Parainfluenza Virus 3 Not Detected (Not Detect); Parainfluenza Virus 4 Not Detected (Not Detect); Respiratory Syncytial Virus Not Detected (Not Detect); SARS- CoV-2 Not Detected (Not Detecte)
[2023-11-25 17:53] LABS: INR 1.2 (0.9-1.3); Prothrombin Time 13.8 SECONDS (9.4-12.5)
--- NOTE | 2023-11-25 18:05 | ED.SOB ---
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 Patient presents with complaint of feeling unwell since she is felt weak, lightheaded but without syncope particularly when she is upright, she denies any fevers but felt some chills. She has had no cold cough or congestion. [place] a little short of breath the last day, states no chest pain or pressure, she has had some left-sided abdominal pain after her vomiting and diarrhea on . She has not had anymore vomiting or nausea since , she states stools or diarrhea on and then she has since had kenzie-colored stools. No black or blood in her stools. No dysuria, urgency or frequency. No new swelling in extremities. Patient states she is on citalopram is her only daily medication. Has had prior C-sections. No known drug allergies. No tobacco, alcohol or recreational drugs. Dr. Johnson is her primary care physician. Patient notes she has had recent COVID exposures family member works with someone who has had COVID and other family members have been exposed as well. Related Data Home Medications Medication Instructions Recorded Confirmed Citalopram Hydrobromide 30 mg PO BEDTIME depression ##0 02/03/10 10/12/21 (Citalopram HBr) Zolpidem Tartrate (Ambien) 10 mg PO PRN PRN Insomnia ##0 02/03/10 10/12/21 Previous Rx's Medication Instructions Recorded losartan 50 mg tablet 50 mg PO DAILY #30 tabs 10/13/21 benzonatate 200 mg capsule 200 mg PO BID PRN cough #20 caps 01/09/22 doxycycline hyclate 100 mg tablet 100 mg PO BID #20 tabs 01/09/22 promethazine 6.25 mg-codeine 10 5 ml PO Q4-6H PRN cough #473 mL 01/09/22 mg/5 mL syrup benzonatate 200 mg capsule 200 mg PO BID PRN cough #20 caps 09/22/22 doxycycline hyclate 100 mg tablet 100 mg PO BID #20 tabs 09/22/22 benzonatate 100 mg capsule 100 mg PO Q6H PRN cough #20 caps 10/24/22 cephalexin 500 mg capsule 500 mg PO TID 5 days #15 caps 11/25/23 Allergies Allergy/AdvReac Type Severity Reaction Status Date / Time No Known Drug Allergies Allergy Verified 11/02/21 17:45 Review of Systems Review of Systems ROS Unobtainable: All systems reviewed & are unremarkable except as noted in HPI and below Patient History Medical History GI bleed Anemia Anxiety Surgical History Status post surgery (12/02/12) Status post surgery (02/03/10) Social History household members: spouse Smoking Status: Never smoker alcohol intake: former Smoking Status: Never smoker alcohol intake frequency: other Substance Use Type: does not use Exam Narrative Exam Narrative: GEN: well nourished, well appearing female, alert and oriented x 3, patient appears to be in mild distress. HEENT: Atraumatic, pupils are equal round reactive to light, extraocular movements are intact, nares are clear, there is no conjunctival pallor. Throat is clear without any exudates, erythema, tonsillar enlargement or uvular deviation HEART: Regular rate and rhythm without murmur, clicks, rubs. No carotid bruits, pulses are equal in upper and lower extremities LUNGS:Lungs clear to auscultation, no wheezes, rales, crackles, chest moves symmetrically ABD:bowel sounds normal, soft, generalized tenderness no guarding, rebound, rigidity, no masses noted, no hepatosplenomegaly :No CVA tenderness MSCL: Non-tender, no muscle atrophy, muscles strength 5/5 upper and lower extremities, full range of motion, normal gait NEURO:CN 2-12 intact, sensation normal SKIN: No Rash, erythema or other skin changes. Initial Vital Signs Initial Vital Signs: Vital Signs Temperature 98.5 F 11/25/23 14:53 Pulse Rate 59 L 11/25/23 14:53 Respiratory Rate 16 11/25/23 14:53 Blood Pressure 144/65 H 11/25/23 14:53 Pulse Oximetry 99 11/25/23 14:53 Oxygen Delivery Method Room Air 11/25/23 14:53 Course Orders Ordered: Discontinued Medications Cephalexin HCl (Cephalexin 250 Mg Capsule) 500 mg PO NOW ONE Stop: 11/25/23 19:41 Last Admin: 11/25/23 19:42 Dose: 500 mg Documented By: MARY Sodium Chloride (Normal Saline 0.9%) 1,000 mls @ 1,000 mls/hr IV BOLUS ONE Stop: 11/25/23 19:16 Last Infusion: 11/25/23 19:38 Dose: Infused Documented By: Admin: 11/25/23 18:30 Dose: 1,000 mls/hr Documented By: MARY Vital Signs Vital signs: Vital Signs - 8 hr 11/25/23 14:53 11/25/23 15:42 11/25/23 15:43 Temperature 98.5 F Pulse Rate 59 L 63 Respiratory Rate 16 Blood Pressure 144/65 H 128/62 Pulse Oximetry 99 100 Oxygen Delivery Method Room Air 11/25/23 15:43 11/25/23 16:00 11/25/23 16:00 Temperature Pulse Rate 57 L 55 L Respiratory Rate 14 Blood Pressure 134/65 Pulse Oximetry 100 99 Oxygen Delivery Method 11/25/23 16:30 11/25/23 16:30 11/25/23 17:00 Temperature Pulse Rate 56 L 59 L Respiratory Rate 14 16 Blood Pressure 147/67 H Pulse Oximetry 99 100 Oxygen Delivery Method 11/25/23 17:00 11/25/23 17:30 11/25/23 17:30 Temperature Pulse Rate 62 Respiratory Rate 12 Blood Pressure 148/68 H 136/64 Pulse Oximetry 100 Oxygen Delivery Method 11/25/23 18:30 11/25/23 18:32 11/25/23 18:32 Temperature Pulse Rate 59 L 60 Respiratory Rate 18 Blood Pressure 152/67 H Pulse Oximetry 98 98 Oxygen Delivery Method MDM - SOB/Dyspnea Lab Data 11/25/23 15:55 11/25/23 15:55 Labs: Lab Results 11/25/23 11/25/23 11/25/23 Range/Units 15:00 15:55 18:04 WBC 4.7 (4.5-11.0) X10^3/uL RBC 4.04 (4.0-5.2) X10^6/uL Hgb 12.5 (12.0-16.0) g/dL Hct 36.4 (36-46) % MCV 90.0 (80-100) fL MCH 30.9 (26-34) PG MCHC 34.3 (30-36) % RDW 13.8 (11.6-14.8) % Plt Count 282 (150-400) X10^3/uL Neut % (Auto) 67.3 (50-75) % Lymph % (Auto) 21.9 L (25-40) % [place] % (Auto) 8.1 (3-14) % Eos % (Auto) 1.9 L (2-4) % Baso % (Auto) 0.8 (0-2) % Neut # (Auto) 3200 (3968-6092) /uL Lymph # (Auto) 1000 L (6750-2586) /uL [place] # (Auto) 400 (0-900) /uL Eos # (Auto) 100 (0-450) /uL Baso # (Auto) 0 (0-100) /uL PT 13.8 H (9.4-12.5) SECONDS INR 1.2 (0.9-1.3) Sodium 137 (137-145) mmol/L Potassium 4.1 (3.4-5.1) mmol/L Chloride 101 (98-107) mmol/L Carbon Dioxide 31 (22-32) mmol/L BUN 20 H (7-17) mg/dL Creatinine 0.92 (0.52-1.04) mg/dL Estimated GFR > 60 (>60) mL/min BUN/Creatinine Ratio 21.7 (6-22) Glucose 96 (80-110) mg/dL Lactate 0.6 L (0.7-2.1) mmol/L Calcium 9.3 (8.4-10.2) mg/dL Total Bilirubin 0.6 (0.2-1.3) mg/dL AST 40 H (14-36) IU/L ALT 34 (<35) IU/L Alkaline Phosphatase 96 (38-126) U/L Troponin I < 0.012 (0.01-0.034) ng/mL NT-Pro-B Natriuret Pep 393 H (<125) pg/mL Total Protein 6.9 (6.3-8.2) g/dL Albumin 4.2 (3.5-5.0) g/dL Globulin 2.7 (1.7-4.1) g/dL Albumin/Globulin Ratio 1.6 (1.0-2.8) Urine RBC None seen (0-5/HPF) Urine WBC 5-10/hpf H (0-5/HPF) Ur Squamous Epith Cells 5-10 /hpf H (0-5/HPF) Urine Bacteria Few (2-10) H (None) Ur Culture Indicated? Specimen cultured Vol Urine Centrifuged 10ml (spun) Chlamy pneumoniae PCR Not detected (Not Detect) Adenovirus (PCR) Not detected (Not Detect) B.parapertussis DNA PCR Not detected (Not Detecte) Coronavirus OC43 (PCR) Not detected (Not Detect) Coronavirus HKU1 (PCR) Not detected (Not Detect) Coronavirus 229E (PCR) Not detected (Not Detect) SARS-CoV-2 (PCR) Not detected (Not Detecte) Coronavirus NL63 (PCR) Not detected (Not Detect) Human Metapneumovir PCR Not detected (Not Detect) Influenza Type A (PCR) Not detected (Not Detect) Influenza Type B (PCR) Not detected (Not Detect) M. pneumoniae (PCR) Not detected (Not Detect) Parainfluenza 1 (PCR) Not detected (Not Detect) Parainfluenza 2 (PCR) Not detected (Not Detect) Parainfluenza 3 (PCR) Not detected (Not Detect) Parainfluenza 4 (PCR) Not detected (Not Detect) RSV (PCR) Not detected (Not Detect) Entero/Rhino (PCR) Not detected (Not Detect) Urine Dip Bedside Urine Glucose Negative Bedside Urine Bilirubin - Negative Bedside Urine Ketone - Negative Urine Specific [place] 1.005 Bedside Urine Occult Blood - Negative Bedside Urine pH 6.0 Bedside Urine Protein - Negative Bedside Urine Urobilinogen - Negative Bedside Urine Nitrite - Negative Bedside Urine Leukocytes ++ 125 Esterase Imaging Data Chest x-ray: Radiologist's Impression: Mauricio Rdz??63??F??1960 ? Allergy/Adv: No Known Drug Allergies (More??) Close Chest X-Ray (Signed) Navneet Herrera - 11/25/23 Chest X-Ray (Signed) Du Ochoa - 04/01/[address] (Signed) Wallace Erickson - 02/02/23 Head/Neck CTA (Signed) Wallace Erickson - 02/02/23 Chest X-Ray (Signed) Tal Soto - 12/31/22 Chest X-Ray (Signed) ChristensenMay - 10/24/22 Chest X-Ray (Signed) Wall,Aubrey - 09/22/22 Chest X-Ray (Signed) Tal Soto - 05/07/22 Chest CTA (Signed) Eldon Peter - 01/09/22 Chest CTA (Signed) RichardsJessee - 11/02/21 Chest X-Ray (Signed) Eldon Peter - 11/02/21 Telemetry Strips 10/12/21 Chest X-Ray (Signed) Gabriel Hurt - 10/11/21 Chest X-Ray (Signed) Eldon Peter - 10/04/21 Abdomen/Pelvis CT (Signed) Aubrey Wall - 10/01/21 Telemetry Strips 09/28/21 Chest X-Ray (Signed) Navneet Herrera - 09/28/21 Chest X-Ray (Signed) Live Moreira - 09/16/21 Wrist X-Ray (Signed) Ghislaine Sellers - 09/16/20 Mammogram Screening (Signed) Addi Lopez - 01/16/20 Chest X-Ray (Signed) Ghislaine eSllers - 11/19/19 Shoulder MRI (Signed) Josh Choe - 01/29/19 Shoulder X-Ray (Signed) Josh Choe - 01/16/19 Mammogram Screening (Signed) Shanda Goyal - 02/01/[address] [address] XRay Report Signed Patient: Mauricio Rdz MR#: [id number] : 1960 Acct:[id number] Age/Sex: 63 / F Date of Service: 11/25/23 Loc: ED Accession Number: [id number] Procedure: XR chest 1V Ordering Provider: Virginia Alejandra D.O. PROCEDURE: XR CHEST 1V INDICATIONS: Shortness of breath TECHNIQUE: One view of the chest was acquired. COMPARISON: Merged With [facility], CT, CT CHEST ABDOMEN PELVIS WITH CONTRAST, 08/20/2023, 11:58. [facility], CR, XR CHEST 2V, 12/31/2022, 17:16. [facility], CR, XR CHEST 2V, 04/01/2023, 17:29. FINDINGS: Surgical changes and devices: None. Lungs and pleura: Lungs are clear. No pleural effusions or pneumothorax. Mediastinum: Mediastinal contours appear normal. Heart size is normal. Bones and chest wall: No suspicious bony lesions. Age-appropriate bony degenerative changes are seen. Overlying soft tissues appear unremarkable. IMPRESSION: No acute cardiopulmonary abnormality is seen. Dictated by: Navneet Herrera M.D. on 11/25/2023 at 16:08 Approved by: Navneet Herrera M.D. on 11/25/2023 at 16:09 CT scan - abdomen/pelvis: Radiologist's Impression: Close Abdomen/Pelvis CT (Signed) SotoTal - 11/25/23 Chest X-Ray (Signed) Navneet Herrera - 11/25/23 Launch?[place] [id number] CT Scan Report Signed Patient: Mauricio Rdz MR#: [id number] : 1960 Acct:[id number] Age/Sex: 63 / F Date of Service: 11/25/23 Loc: ED Accession Number: [id number] Procedure: CT abdomen pelvis w con Ordering Provider: Eri Guardado D.O. PROCEDURE: CT ABDOMEN PELVIS W CON INDICATIONS: abd pain, Lside pain, kenzie colored stools TECHNIQUE: After the administration of intravenous contrast, axial sections acquired from the lung bases to the pubic symphysis. Coronal and sagittal reformats were performed. For radiation dose reduction, the following was used: automated exposure control, adjustment of mA and/or kV according to patient size. COMPARISON: Merged With [facility], CT, CT CHEST ABDOMEN PELVIS WITH CONTRAST, 08/20/2023, 11:58. FINDINGS: Image quality: Diagnostic. Lower Chest: No significant findings. ABDOMEN: Liver: No solid mass. Gallbladder: No radiopaque gallstones or wall thickening. Biliary ducts: No biliary dilation. Pancreas: No ductal dilation. Spleen: Size is within normal limits. Adrenal Glands: No adrenal nodules. Kidneys and Ureters: No hydronephrosis. No solid mass. No complex renal cystic lesion which requires follow up. Stomach and Bowel: Moderate colonic stool. Fecalized small bowel contents may indicate increased intense on transit time. No signs of bowel obstruction. Peritoneum: No abnormal intraperitoneal fluid. No free air. Ventral Wall: No significant ventral hernia. Abdominal Nodes: No retroperitoneal or mesenteric adenopathy by size criteria. Vessels: Aorta and inferior vena cava are normal in size. PELVIS: Pelvic Organs: Status post hysterectomy. Bladder: No bladder wall thickening, accounting for underdistention. Pelvic Nodes: No enlarged lymph nodes. Miscellaneous: No inguinal hernias are seen. Bones: No aggressive osseous abnormality. IMPRESSION: No acute abnormality identified in the abdomen or pelvis. Approved by: Tal Soto M.D. on 11/25/2023 at 18:53 ECG Data Attestation: I personally reviewed and interpreted this ECG as follows: Prior ECG tracings: available for review Interpretation: EKG shows sinus [place] with short TN, premature atrial complexes rate of 59 TN 108 QRS 86 QTC 445. Patient has prior 05/07/2019 no acute change. MDM Narrative Medical decision making narrative: 63-year-old female with history of Waldenstrom's presents with complaint of feeling unwell, dizziness particularly when upright, felt a little short of breath but mostly complains of abdominal pain with nausea and vomiting that started on as well as diarrhea those both resolved but has had some persistent kenzie-colored stools. Denies any urinary symptoms. On exam patient is fairly tender throughout her generalized abdomen. Vitals are overall appropriate. Discussed with patient's findings from today felt appropriate to obtain CT abdomen pelvis. White count of 4.7 hemoglobin of 12.5 platelets of 282. INR 1.2 sodium 137 potassium 4.1 chloride of 101 carbon dioxide 31 BUN 20 creatinine 0.92. Glucose is 96. Troponins less than 0.012 BNP is 393, AST is 40 ALT is 34 alk-phos is 96 with a bilirubin of 0.6 Respiratory panel is negative Chest x-ray shows no acute change. EKG shows sinus bradycardia with short TN, rate of 59 TN 108 QRS [address] QTC [address] No acute ST. No acute changes. Point of care urine is positive for leukocyte esterase. Urine micro shows RBCs 5-10 white cells, 5-10 squamous, few bacteria, sent for culture. CT abdomen pelvis is negative. Patient received fluids. She defers anything for pain. Discussed with patient we will treat for UTI. Should follow up with primary if having persistent symptoms. Discharge Plan Departure Patient Disposition: Home Clinical Impression: UTI (urinary tract infection) Activity Restrictions/Additional Instructions: Follow up for recheck. Your urine does show signs potential infection today, please take antibiotics until completed prescription was sent to [facility]. Please return for new or worsening symptoms, fevers, new chest pain or shortness of breath, persistent vomiting, black or bloody stools, difficulty with urination or other new or concerning changes. Prescriptions: New cephalexin 500 mg capsule 500 mg PO TID 5 Days Qty: 15 0RF No Action Citalopram Hydrobromide (Citalopram HBr) 30 mg tablet 30 mg PO BEDTIME Qty: 0 Zolpidem Tartrate (Ambien) 10 mg tablet 10 mg PO PRN MDD 10 mg PRN (Reason: Insomnia) Qty: 0 losartan 50 mg Tablet 50 mg PO DAILY Qty: 30 0RF doxycycline hyclate 100 mg tablet 100 mg PO BID Qty: 20 0RF benzonatate 200 mg capsule 200 mg PO BID PRN (Reason: cough) Qty: 20 0RF promethazine-codeine 6.25-10 mg/5 mL syrup 5 ml PO Q4-6H PRN (Reason: cough) Qty: 473 0RF benzonatate 100 mg capsule 100 mg PO Q6H PRN (Reason: cough) Qty: 20 0RF benzonatate 200 mg capsule 200 mg PO BID PRN (Reason: cough) Qty: 20 0RF doxycycline hyclate 100 mg tablet 100 mg PO BID Qty: 20 0RF Referrals: Magdiel Johnson MD [Primary Care Provider] - Stand Alone Forms: Patient Portal/API
--- NOTE | 2023-11-25 18:17 | DI.CT.S_ITS ---
PROCEDURE: CT ABDOMEN PELVIS W CON INDICATIONS: abd pain, Lside pain, kenzie colored stools TECHNIQUE: After the administration of intravenous contrast, axial sections acquired from the lung bases to the pubic symphysis. Coronal and sagittal reformats were performed. For radiation dose reduction, the following was used: automated exposure control, adjustment of mA and/or kV according to patient size. COMPARISON: [facility], CT, CT CHEST ABDOMEN PELVIS WITH CONTRAST, 08/20/2023, 11:58. FINDINGS: Image quality: Diagnostic. Lower Chest: No significant findings. ABDOMEN: Liver: No solid mass. Gallbladder: No radiopaque gallstones or wall thickening. Biliary ducts: No biliary dilation. Pancreas: No ductal dilation. Spleen: Size is within normal limits. Adrenal Glands: No adrenal nodules. Kidneys and Ureters: No hydronephrosis. No solid mass. No complex renal cystic lesion which requires follow up. Stomach and Bowel: Moderate colonic stool. Fecalized small bowel contents may indicate increased intense on transit time. No signs of bowel obstruction. Peritoneum: No abnormal intraperitoneal fluid. No free air. Ventral Wall: No significant ventral hernia. Abdominal Nodes: No retroperitoneal or mesenteric adenopathy by size criteria. Vessels: Aorta and inferior vena cava are normal in size. PELVIS: Pelvic Organs: Status post hysterectomy. Bladder: No bladder wall thickening, accounting for underdistention. Pelvic Nodes: No enlarged lymph nodes. Miscellaneous: No inguinal hernias are seen. Bones: No aggressive osseous abnormality. IMPRESSION: No acute abnormality identified in the abdomen or pelvis. Approved by: Tal Soto M.D. on 11/25/2023 at 18:53
[2023-11-25] MEDS: SODIUM CHLORIDE 0.9% 1,000 ML 1000 ML IV (18:30)
[2023-11-25 18:32] LABS: Bacteria Urine Few (2-10); Culture Indicated Urine Specimen Cultured; RBC Urine None Seen (0-5/HPF); Squamous Epithelial Cell Urine 5-10 /HPF (0-5/HPF); Urine Volume 10mL (spun); WBC Urine 5-10/HPF (0-5/HPF)
[2023-11-25] MEDS: cephALEXin 250 MG CAPSULE 500 MG PO (19:42)
== END 2023-11-25 19:47 | disposition home or self-care (01) ==
PROVIDERS: Emergency Medicine; Emergency Provider Emergency Medicine; PCP Family Medicine
DX: N39.0 Urinary tract infection, site not specified (principal); R11.2 Nausea with vomiting, unspecified; R10.9 Unspecified abdominal pain; R00.1 Bradycardia, unspecified
CPT/HCPCS: 36415; 71045; 74177; 80053; 81003; 81015; 83605; 83880; 84484; 85025; 85610; 87086; 87633; 93005; 96360; 99284

== ENCOUNTER → 2024-12-28 14:53 | Outpatient (CLI) | payer OTHER, SELFPAY ==
[2021-10-12 12:01] VITALS: BMI 29.3
--- NOTE | 2024-12-28 14:54 | DI.MG.S_ITS ---
MM screening mammo BI: 12/28/2024. BI-RADS: 1 CLINICAL: 64-year old female for bilateral screening mammogram. Tyrer-Cuzick lifetime risk of 10.2%. No personal or first-degree family history of breast cancer. History of ovarian cancer in one first-degree relative. PRIOR EXAMS 02/24/2021, 01/16/2020, 02/01/2018. MAMMOGRAPHY TECHNIQUE: 2D and 3D (tomosynthesis) digital mammographic views obtained, with additional images as needed for full coverage. Current study was also evaluated with a Computer Aided Detection (CAD) system. DENSITY B. There are scattered areas of fibroglandular density. MAMMOGRAPHY FINDINGS Bilateral: No suspicious mass, asymmetry, microcalcification, or other abnormality seen. IMPRESSION: * No evidence of malignancy. RECOMMENDATIONS Bilateral * Annual screening mammography. OVERALL ASSESSMENT CATEGORY BI-RADS-1: Negative. The [employer] recommends annual screening mammography beginning at age 40 for women with average risk of breast cancer. ELECTRONICALLY SIGNED: Connie Christina M.D. on 01/02/2025 at 03:10:05 PM PT Interpreting Station ID: [id number]
== END ==
LOC: MAMMO 14:54
PROVIDERS: PCP Family Medicine; Referring Provider Family Medicine; Visit Provider Family Medicine
DX: Z12.31 Encounter for screening mammogram for malignant neoplasm of breast (principal); Z80.41 Family history of malignant neoplasm of ovary
CPT/HCPCS: 77063; 77067